=== PATIENT | female | born 1960 | race Hispanic/Latino ===

== ENCOUNTER 2017-09-14 12:23 | Emergency (ER) | payer OTHER ==
[2017-09-14] MEDS ORDERED: METHYLPREDNISOLONE 125 MG INJ ONE (13:44)
[2017-09-14] MEDS ORDERED: IPRATROPIUM BROM 0.5MG/2.5ML ONE ×2 (13:44→17:13)
[2017-09-14] MEDS ORDERED: ALBUTEROL 2.5 MG/3 ML NEB SOL ONE ×2 (13:44→17:13)
[2017-09-14] MEDS ORDERED: MAGNESIUM SULFATE 1 gm IVPB 1 GM/100 ML BAG IV ONE (13:45)
[2017-09-14 14:19] LABS: Protime INR 0.93
[2017-09-14 14:40] LABS: Absolute Lymphocytes (CBC) 2.4 K/uL (0.7-4.9); Absolute Monocytes 0.6 K/uL (0.1-1.3); Absolute Neutrophil 3.7 K/uL (1.8-8.0); Basophils % 0.7 % (0-1.3); Eosinophils % 1.1 % (0-4.4); Hematocrit 55.7 % (36.0-45.0); Lymphocytes % 35.5 % (15.3-44.8); MCH 27.7 pg (27.0-35.0); MCV 87.3 fL (80-100); MPV 9.9 fL (7.6-11.3); Monocytes % 8.7 % (3.3-12.3); RBC Red Blood Cell Count 6.38 M/uL (3.86-4.86)
[2017-09-14 14:52] LABS: CKMB Creatine Kinase MB 1.9 ng/ml (0.3-4.0)
[2017-09-14 14:57] LABS: Bicarbonate 33 mEq/L (21-31); Creatine Phosphokinase 54 IU/L (22-269); Glucose Level 221 mg/dL (65-120); Magnesium 1.7 mg/dL (1.8-2.5); Potassium 4.1 mEq/L (3.6-5.0); Sodium Level 139 mEq/L (135-145)
[2017-09-14 15:03] LABS: ALT/SGPT 50 IU/L (10-60); AST/SGOT 34 IU/L (10-42); Albumin 3.2 g/dL (3.2-5.5); Alkaline Phosphatase 102 IU/L (42-121); BUN Blood Urea Nitrogen 25 mg/dL (6-20); Bilirubin Direct 0.1 mg/dL (0-0.2); Bilirubin Total 0.4 mg/dL (0.3-1.2); Protein, Total 7.1 g/dL (6.0-8.3)
[2017-09-14 15:12] LABS: Urine Specific Gravity >1.030 (1.005-1.030)
[2017-09-14 15:15] LABS: Urine Blood 1+ (NEG); Urine Glucose TRACE (NEG); Urine Protein 3+ (NEG); Urine pH 5.5 (5.0-7.0)
--- NOTE | 2017-09-14 16:24 | EKG ---
Test Date: 2017-09-14 Test Time: 13:54:35 Ribbon Weaver: DULCE MEASUREMENT RESULTS: Intervals: Rate: 94 MT: 170 QRSD: 80 QT: 370 QTc: 462 Leonard: P: 51 MT: 170 QRS: 59 T: 40 INTERPRETIVE STATEMENTS: Normal sinus rhythm Right atrial enlargement Borderline ECG Compared to ECG 10/08/2009 06:05:22 Atrial abnormality now present Electronically Signed On 09-14-17 16:23:24 CDT by Parish Lord
--- NOTE | 2017-09-14 18:04 | ER ---
Nurse's Notes [facility] Name: Karen Jenkins Age: 57 yrs Sex: Female : 1960 Arrival Date: 09/14/2017 Time: 12:26 Bed 14 Private MD: None, None Diagnosis: Shortness of breath;Cough Presentation: 09/14 12:30 Presenting complaint: Patient states: last Sunday, i started having this SOB since hj then, cough and wheezing getting worse, now i have headache; reports fever; O2 sat at home on room air 89%;. Transition of care: patient was not received from another setting of care. Onset of symptoms was September 14, 2017. Initial Sepsis Screen: Does the patient meet any 2 criteria? No. Patient's initial sepsis screen is negative. Does the patient have a suspected source of infection? No. Patient's initial sepsis screen is negative. Care prior to arrival: None. 12:30 Method Of Arrival: Ambulatory 12:30 Acuity: LIO 3 hj Triage Assessment: 12:35 General: Appears in no apparent distress. uncomfortable, Behavior is calm, cooperative, hj appropriate for age. Pain: Denies pain. Respiratory: Reports cough that is Onset: The symptoms/episode began/occurred last Sunday;, the patient has moderate shortness of breath. Historical: - Allergies: 12:35 No Known Allergies; hj - Home Meds: 12:35 Lotrel 5-10 mg Oral cap 1 cap once daily [Active]; Glucophage 500 mg Oral tab 1 tab 2 hj times per day [Active]; - PMHx: 12:35 Diabetes - NIDDM; Hypertension; hj - PSHx: 12:35 lap band; tummy tuck; hj Screenin:00 Abuse screen: Denies threats or abuse. Denies injuries from another. Nutritional sg screening: No deficits noted. Tuberculosis screening: No symptoms or risk factors identified. Never had TB. Fall Risk None identified. Assessment: 12:35 Cardiovascular: Rhythm is regular. Respiratory: Airway is patent Respiratory effort is hj even, unlabored, Respiratory pattern is regular, symmetrical, Vital Signs: 12:36 BP 161 / 89; Pulse 96; Resp 20; Temp 98.8(O); Pulse Ox 91% on R/A; Weight 87.54 kg; hj Height 5 ft. 2 in. (157.48 cm); 15:18 BP 144 / 85; Pulse 85; Resp 17 S; Pulse Ox 94% on 3 lpm NC; sg 16:59 BP 142 / 82; Pulse 96 MON; Resp 19; Pulse Ox 97% on R/A; Pain 0/10; sg 12:36 Body Mass Index 35.30 (87.54 kg, 157.48 cm) hj 16:59 pt 88 percent on room air while talking with pt mother in the exam room ED Course: 12:26 Patient arrived in ED. mr 12:26 None, None is Private Physician. mr 12:32 Triage completed. hj 12:35 Arm band placed on left wrist. hj 12:45 Patient has correct armband on for positive identification. Bed in low position. Call sg light in reach. 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 Pulse ox on. NIBP on. 12:58 Dallas Kenny PA is PHCP. cp 12:58 Edmund Cordero MD is Attending Physician. cp 14:05 EKG done, by endo tech. reviewed by Dallas MENDOSA. vh 14:13 Bong Maria, GERMAIN is Primary Nurse. sg 15:29 Urine --Ancillary (enter results) Sent. sg 18:02 Italia Davila MD is Hospitalizing Provider. cp 18:42 Kg Vasquez MD is Referral Physician. cp 18:45 No provider procedures requiring assistance completed. IV discontinued, intact, sg bleeding controlled, No redness/swelling at site. Pressure dressing applied. Administered Medications: 14:14 Drug: Magnesium Sulfate 1 grams Route: IVPB; Infused Over: 1 hrs; Site: right sg antecubital; 15:18 Follow up: Response: No adverse reaction; IV Status: Completed infusion sg 14:14 Drug: SOLU-Medrol 125 mg Route: IVP; Site: right antecubital; sg 15:26 Follow up: Response: No adverse reaction sg 14:34 Drug: Albuterol - atroVENT (3:1) (2.5 mg - 0.5 mg) 3 ml Route: Nebulizer; sg 15:26 Follow up: Response: No adverse reaction sg 17:18 Drug: Albuterol - atroVENT (3:1) (2.5 mg - 0.5 mg) 3 ml Route: Nebulizer; sg Outcome: 18:03 Decision to Hospitalize by Provider. cp 18:43 Discharge ordered by MD. cp 18:48 Discharged to home ambulatory, with friend. sg 18:48 Condition: good 18:48 Discharge instructions given to patient, Instructed on discharge instructions, follow up and referral plans. medication usage, safety practices, Demonstrated understanding of instructions, follow-up care, medications, Prescriptions given X 3. 18:51 Patient left the ED. em Signatures: Bong Maria RN RN Amelia Correia mr Alegre, Jhonathan, NECKTIE STITCHER NECKTIE STITCHER em Maribel Truong Lamine Rodriguez RN RN Dallas Kenny, NAVYA PA cp Corrections: (The following items were deleted from the chart) 12:37 12:36 Pulse 96bpm; Resp 20bpm; Pulse Ox 91% RA; Temp 98.8F Oral; 87.54 kg; Height 5 ft. hj 2 in.; BMI: 35.3; hj 17:10 16:59 BP 142 / 82; Pulse 96bpm; MonitorResp 90bpm; Pulse Ox 97% RA; Pain 0/10; sg sg
--- NOTE | 2017-09-14 18:04 | EDPHYS ---
Physician Documentation [facility] Name: Karen Jenkins Age: 57 yrs Sex: Female : 1960 Arrival Date: 09/14/2017 Time: 12:26 Bed 14 Private MD: None, None ED Physician Edmund Cordero HPI: 09/14 13:35 This 57 yrs old Female presents to ER via Ambulatory with complaints of cp Shortness Of Breath. 13:35 The patient has shortness of breath at rest. Onset: The symptoms/episode began/occurred cp last week. Duration: The symptoms are continuous, and are steadily getting worse. Associated signs and symptoms: Pertinent positives: productive cough, Pertinent negatives: diaphoresis, fever, hemoptysis. Patient reports she was seen at Urgent Care clinic 2 days ago for similar symptoms and is currently taking prescribed Augmentin. Historical: - Allergies: 12:35 No Known Allergies; hj - Home Meds: 12:35 Lotrel 5-10 mg Oral cap 1 cap once daily [Active]; Glucophage 500 mg Oral tab 1 tab 2 hj times per day [Active]; - PMHx: 12:35 Diabetes - NIDDM; Hypertension; hj - PSHx: 12:35 lap band; tummy tuck; hj ROS: 13:40 Constitutional: Negative for body aches, chills, fever, poor PO intake. cp 13:40 Eyes: Negative for injury, pain, redness, and discharge. cp 13:40 ENT: Positive for sore throat, Negative for drainage from ear(s), ear pain, difficulty swallowing, difficulty handling secretions. 13:40 Cardiovascular: Positive for chest pain, with cough, Negative for edema, palpitations. 13:40 Respiratory: Positive for cough, with clear sputum, shortness of breath, at rest. wheezing. 13:40 Abdomen/GI: Negative for abdominal pain, nausea, vomiting, and diarrhea, black/tarry stool, rectal bleeding. 13:40 Back: Negative for pain at rest, pain with movement, radiated pain. 13:40 Skin: Negative for cellulitis, rash. 13:40 Neuro: Negative for headache, syncope, near syncope, weakness. 13:40 All other systems are negative. Exam: 13:50 Constitutional: The patient appears in no acute distress, alert, awake, cp non-diaphoretic, non-toxic, well developed, well nourished. 13:50 Head/Face: Normocephalic, atraumatic. cp 13:50 Eyes: Periorbital structures: appear normal, Pupils: equal, round, and reactive to light and accomodation, Extraocular movements: intact throughout, Conjunctiva: normal, no exudate, no injection, Sclera: no appreciated abnormality, Lids and lashes: appear normal, bilaterally. 13:50 ENT: External ear(s): are unremarkable, Ear canal(s): are normal, clear, TM's: bulging, is not appreciated, bilaterally, dullness, bilaterally, erythema, is not appreciated, bilaterally, Nose: is normal, Mouth: Lips: moist, Oral mucosa: pink and intact, moist, Posterior pharynx: Airway: no evidence of obstruction, patent, Tonsils: are normal in appearance, Uvula: midline, non-edematous, no erythema, swelling, is not appreciated, erythema, that is mild, exudate, is not appreciated, Voice: is normal. 13:50 Neck: External neck: is normal, ROM/movement: is normal, is supple, without pain, no range of motions limitations, no meningismus, no nuchal rigidity, Lymph nodes: no appreciated lymphadenopathy. 13:50 Chest/axilla: Inspection: normal, Palpation: is normal, no crepitus, no tenderness. 13:50 Cardiovascular: Rate: normal, Rhythm: regular, Pulses: Pulses are 2+ in right radial artery and left radial artery. Edema: is not appreciated. 13:50 Respiratory: the patient does not display signs of respiratory distress, Respirations: cp labored breathing, that is mild, splinting, is not noted, tachypnea, is not appreciated, Breath sounds: decreased breath sounds, that are moderate, throughout, stridor, is not appreciated, + upper airway congestion. wheezing: that is mild, is heard diffusely. 13:50 Abdomen/GI: Inspection: abdomen appears normal, Bowel sounds: active, all quadrants, Palpation: abdomen is soft and non-tender, in all quadrants. 13:50 Back: pain, is absent, ROM is normal. 13:50 Skin: cellulitis, is not appreciated, no rash present. 13:50 Neuro: Orientation: to person, place \T\ time. Mentation: lucid, able to follow commands, Cerebellar function: is grossly normal, Motor: moves all fours, strength is normal, Sensation: no obvious gross deficits. 14:00 ECG was reviewed by the Attending Physician. cp Vital Signs: 12:36 BP 161 / 89; Pulse 96; Resp 20; Temp 98.8(O); Pulse Ox 91% on R/A; Weight 87.54 kg; hj Height 5 ft. 2 in. (157.48 cm); 15:18 BP 144 / 85; Pulse 85; Resp 17 S; Pulse Ox 94% on 3 lpm NC; sg 16:59 BP 142 / 82; Pulse 96 MON; Resp 19; Pulse Ox 97% on R/A; Pain 0/10; sg 12:36 Body Mass Index 35.30 (87.54 kg, 157.48 cm) hj 16:59 pt 88 percent on room air while talking with pt mother in the exam room sg MDM: 13:11 Patient medically screened. cp 16:00 Differential diagnosis: asthma, Bronchitis CHF exacerbation, Chronic Obstructive cp Pulmonary Disease pneumonia, pulmonary edema, Pulmonary Embolism. 17:25 Data reviewed: vital signs, nurses notes, lab test result(s), EKG, radiologic studies, cp plain films. 17:25 Test interpretation: by ED physician or midlevel provider: ECG, plain radiologic cp studies. 17:26 Physician consultation: Italia Davila MD was called at 17:27, was contacted at 17:27, regarding admission, to the medical/surgical unit. patient's condition. 18:35 ED course: VSS. Patient evaluated by DR Davila, hospitalist, and felt to be stable for cp discharge to home with medications. 09/14 13:35 Order name: Basic Metabolic Panel; Complete Time: 16:14 cp 09/14 16:14 Interpretation: Normal except: CO2 33; GLUC 221; BUN 25. cp 09/14 13:35 Order name: BNP; Complete Time: 16:14 09/14 13:35 Order name: CBC with Diff; Complete Time: 14:56 09/14 14:56 Interpretation: Normal except: RBC 6.38; HGB 17.6; HCT 55.7; MCV 87.3; MCHC 31.7; RDW cp 15.4. 09/14 13:35 Order name: Ckmb; Complete Time: 16:14 09/14 13:35 Order name: CPK; Complete Time: 16:14 cp 09/14 13:35 Order name: LFT's; Complete Time: 16:14 cp 09/14 13:35 Order name: Magnesium; Complete Time: 16:14 cp 09/14 16:14 Interpretation: Abnormal: MG 1.7. 09/14 13:35 Order name: PT-INR; Complete Time: 16:14 cp 09/14 13:35 Order name: Ptt, Activated; Complete Time: 16:14 cp 09/14 13:35 Order name: Troponin (emerg Dept Use Only); Complete Time: 14:56 cp 09/14 14:56 Interpretation: TROPED < 0.03; Reviewed. 09/14 13:35 Order name: Influenza Screen (a \T\ B); Complete Time: 14:56 cp 09/14 15:02 Order name: Urine Dipstick--Ancillary (enter results); Complete Time: 16:14 sg 09/14 16:14 Interpretation: Normal except: UKET 1+; UBLD 1+; UPROT 3+. 09/14 15:03 Order name: Urine --Ancillary (enter results) 09/14 15:03 Order name: Urine --Ancillary; Complete Time: 16:14 EDMS 09/14 13:35 Order name: Urine Test (obtain specimen); Complete Time: 14:32 cp 09/14 13:35 Order name: EKG; Complete Time: 13:35 cp 09/14 13:35 Order name: Cardiac monitoring; Complete Time: 14:32 cp 09/14 13:35 Order name: EKG - Nurse/Tech; Complete Time: 14:33 cp 09/14 13:35 Order name: IV Saline Lock; Complete Time: 14:33 cp 09/14 13:35 Order name: Labs collected and sent; Complete Time: 14:33 cp 09/14 13:35 Order name: O2 Per Protocol; Complete Time: 14:33 cp 09/14 13:35 Order name: O2 Sat Monitoring; Complete Time: 14:33 cp 09/14 13:35 Order name: Urine Dipstick-Ancillary (obtain specimen); Complete Time: 14:34 cp EC:00 Rate is 94 beats/min. Rhythm is regular. NE interval is normal. QRS interval is normal. cp QT interval is normal. No ST changes noted. Interpreted by me. Reviewed by me. Administered Medications: 14:14 Drug: Magnesium Sulfate 1 grams Route: IVPB; Infused Over: 1 hrs; Site: right sg antecubital; 15:18 Follow up: Response: No adverse reaction; IV Status: Completed infusion sg 14:14 Drug: SOLU-Medrol 125 mg Route: IVP; Site: right antecubital; sg 15:26 Follow up: Response: No adverse reaction sg 14:34 Drug: Albuterol - atroVENT (3:1) (2.5 mg - 0.5 mg) 3 ml Route: Nebulizer; sg 15:26 Follow up: Response: No adverse reaction sg 17:18 Drug: Albuterol - atroVENT (3:1) (2.5 mg - 0.5 mg) 3 ml Route: Nebulizer; sg Disposition: 09/14/17 18:43 Discharged to Home. Impression: Shortness of breath, Cough. - Condition is Fair. - Discharge Instructions: Shortness of Breath, Cough, Adult. - Prescriptions for Advair HFA 45- 21 mcg/actuation Inhalation HFA aerosol inhaler - inhale 2 puff by INHALATION route 2 times per day; 1 Inhaler. Albuterol Sulfate 2.5 mg /3 mL (0.083 %) Inhalation Solution for Nebulization - inhale 1 unit by NEBULIZATION route every 8 hours As needed; 1 box. Zithromax Z- Tj 250 mg Oral Tablet - take 1 tablet by ORAL route as directed for 5 days Day 1 - take two (2) tablets one time. Day 2, 3, 4 , 5 take one (1) tablet once daily.; 6 tablet. Prednisone 20 mg Oral Tablet - take 1 tablet by ORAL route once daily for 10 days; 10 tablet. - Work release form, Medication Reconciliation Form, Thank You Letter, Antibiotic Education, Prescription Opioid Use form. - Follow up: Kg Vasquez MD; When: 2 - 3 days; Reason: Recheck today's complaints. - Problem is new. - Symptoms have improved. Addendum: 09/22/2017 19:57 Co-signature as Attending Physician, Edmund Cordero MD I agree with the assessment and k plan of care. Signatures: Dispatcher [employer] EDMS Bong Maria RN Edmund Flores MD MD kdr Jhonathan Alegre, SCOUT SCOUT em Lamine Rodriguez, RN RN Dallas Hong, Zoe Browning cp Corrections: (The following items were deleted from the chart) 09/14 16:43 16:18 Chest Single View+RAD.RAD.BRZ ordered. EDMS EDMS 18:06 18:03 Hospitalization Ordered by Italia Davila MD for Observation. Preliminary eb diagnosis is Hypoxemia. Bed requested for Telemetry/MedSurg (observation). Status is Observation. Condition is Stable. Problem is new. Symptoms have improved. UTI on Admission? No. cp 18:37 18:06 09/14/2017 18:03 Hospitalization Ordered by Itlaia Davila MD for Observation. eb Preliminary diagnosis is Hypoxemia. Bed requested for Telemetry/MedSurg (observation). Status is Observation. Condition is Stable. Problem is new. Symptoms have improved. UTI on Admission? No. eb 18:41 18:37 09/14/2017 18:03 Hospitalization Ordered by Italia Davila MD for Observation. cp Preliminary diagnosis is Hypoxemia. Bed requested for Telemetry/MedSurg (observation). Status is Observation. Condition is Stable. Problem is new. Symptoms have improved. UTI on Admission? No. eb 18:51 18:43 09/14/2017 18:43 Discharged to Home. Impression: Shortness of breath; Cough. em Condition is Fair. Forms are Medication Reconciliation Form, Thank You Letter, Antibiotic Education, Prescription Opioid Use. Follow up: Kg Vasquez; When: 2 - 3 days; Reason: Recheck today's complaints. Problem is new. Symptoms have improved. cp
== END 2017-09-14 18:51 | disposition home or self-care (01) ==
LOC: ER 12:23 → ERHOLD 18:07 → UNDOADMOB 18:07 → ER 18:51
DX: R05 Cough (principal); I10 Essential (primary) hypertension; E11.9 Type 2 diabetes mellitus without complications
CPT/HCPCS: 36415; 80048; 80076; 81003; 81025; 82550; 82553; 83735; 83880; 84484; 85025; 85610; 85730; 87804; 93005; 94640; 96365; 96375; 99285; J2930; J3475

== ENCOUNTER 2019-02-15 17:42 | Emergency (ER) | payer OTHER ==
[2019-02-15] MEDS ORDERED: IBUPROFEN 400 MG TAB ONE ×2 (18:36→18:39)
--- NOTE | 2019-02-15 19:15 | RAD REPORT ---
EXAM DESCRIPTION: RAD - Ankle Right 3 View - 02/15/2019 7:06 pm CLINICAL HISTORY: Right ankle pain status post injury FINDINGS: Mildly displaced oblique fracture lateral malleolus. No dislocation
--- NOTE | 2019-02-15 19:17 | RAD REPORT ---
EXAM DESCRIPTION: RAD - Foot Right 3 View - 02/15/2019 7:06 pm CLINICAL HISTORY: Right foot pain status post injury FINDINGS: No fracture or dislocation is seen involving the right foot Large calcaneal spurs
--- NOTE | 2019-02-15 20:03 | ER ---
Nurse's Notes [facility] Name: Karen Jenkins Age: 58 yrs Sex: Female : 1960 Arrival Date: 02/15/2019 Time: 17:46 Bed 28 Private MD: Diagnosis: Fracture of lower leg, including ankle Presentation: 02/15 17:54 Presenting complaint: Patient states: "I slipped and fell last night". Pt c/o pain to aa5 right ankle. Transition of care: patient was not received from another setting of care. Onset of symptoms was January 2019. Risk Assessment: Do you want to hurt yourself or someone else? Patient reports no desire to harm self or others. Initial Sepsis Screen: Does the patient meet any 2 criteria? No. Patient's initial sepsis screen is negative. Does the patient have a suspected source of infection? No. Patient's initial sepsis screen is negative. Care prior to arrival: None. 17:54 Acuity: LIO 4 aa5 17:54 Method Of Arrival: Ambulatory aa5 Historical: - Allergies: 17:56 No Known Allergies; aa5 - PMHx: 17:55 Diabetes - NIDDM; Hypertension; aa5 - PSHx: 17:55 lap band; tummy tuck; aa5 - Immunization history:: Adult Immunizations up to date. - Social history:: Smoking status: Patient/guardian denies using tobacco. - Ebola Screening: : No symptoms or risks identified at this time. Screenin:20 Abuse screen: Denies threats or abuse. Nutritional screening: No deficits noted. tr5 Tuberculosis screening: No symptoms or risk factors identified. Fall Risk None identified. Assessment: 18:00 General: Appears in no apparent distress. uncomfortable, Behavior is calm, cooperative. tr5 Pain: Complains of pain in right foot Pain does not radiate. Pain currently is 7 out of 10 on a pain scale. Quality of pain is described as aching, Pain began 1 day ago. Is intermittent, Alleviated by rest, Aggravated by increased activity. Neuro: Level of Consciousness is awake, alert, Oriented to person, place, time. Cardiovascular: Heart tones present Capillary refill < 3 seconds Pulses are all present. Respiratory: Airway is patent Respiratory effort is even, unlabored, Respiratory pattern is regular, symmetrical. GI: No signs and/or symptoms were reported involving the gastrointestinal system. : No signs and/or symptoms were reported regarding the genitourinary system. EENT: Derm: No signs and/or symptoms reported regarding the dermatologic system. Musculoskeletal: Capillary refill < 3 seconds, Range of motion: intact in all extremities. 19:00 Reassessment: Patient appears in no apparent distress at this time. Patient and/or tr5 family updated on plan of care and expected duration. Pain level reassessed. Patient is alert, oriented x 3, equal unlabored respirations, skin warm/dry/pink. Vital Signs: 18:00 BP 154 / 102; Pulse 90; Resp 16; Temp 98.2(O); Pulse Ox 99% on R/A; tr5 ED Course: 17:46 Patient arrived in ED. mr 17:54 Arm band placed on. aa5 17:55 Triage completed. aa5 17:56 Jarrod Orellana PA is PHCP. [facility] 17:56 Dallas Meyer MD is Attending Physician. [facility] 18:24 Vasu Ingram, GERMAIN is Primary Nurse. tr5 19:07 Ankle Right 3 View XRAY In Process Unspecified. EDMS 19:07 Foot Right 3 View XRAY In Process Unspecified. EDMS 19:20 Placed in gown. Bed in low position. Call light in reach. tr5 19:47 Zack wrap to right ankle Orthoglass splint: Posterior short lleg splint applied on right jp3 leg. stirrup splint applied on right leg. 20:01 Isaiah Merino MD is Referral Physician. [facility] Administered Medications: 18:43 Drug: Ibuprofen 400 mg Route: PO; tr5 19:20 Follow up: Response: Marked relief of symptoms tr5 Outcome: 20:02 Discharge ordered by . brigitte 20:37 Patient left the ED. mw2 Signatures: Dispatcher [employer] EDMS Jarrod Orellana PA PA jmm Rivera, Mary mr ErazoNoemí RN RN aa5 Norm Kwon mw2 Skyler Cordoba jp3 Vasu Ingram RN RN tr5
--- NOTE | 2019-02-15 20:03 | EDPHYS ---
Physician Documentation [facility] Name: Karen Jenkins Age: 58 yrs Sex: Female : 1960 Arrival Date: 02/15/2019 Time: 17:46 Bed 28 Private MD: ED Physician Dallas Meyer HPI: 02/15 17:59 This 58 yrs old Female presents to ER via Ambulatory with complaints of Fall jmm Injury, Ankle Injury. 17:59 Details of fall: The patient fell from an upright position. Onset: The symptoms/episode jmm began/occurred acutely, 6 day(s) ago. The patient has experienced a previous episode. Patient states she twisted her right ankle and has continued to have pain and swelling since. Denies other injury. . Historical: - Allergies: 17:56 No Known Allergies; aa5 - PMHx: 17:55 Diabetes - NIDDM; Hypertension; aa5 - PSHx: 17:55 lap band; tummy tuck; aa5 - Immunization history:: Adult Immunizations up to date. - Social history:: Smoking status: Patient/guardian denies using tobacco. - Ebola Screening: : No symptoms or risks identified at this time. ROS: 17:59 Constitutional: Negative for fever, chills, and weight loss, Cardiovascular: Negative jmm for chest pain, palpitations, and edema, Respiratory: Negative for shortness of breath, cough, wheezing, and pleuritic chest pain. 17:59 MS/extremity: Positive for injury or acute deformity, pain, swelling. 17:59 All other systems are negative. Exam: 17:59 Constitutional: This is a well developed, well nourished patient who is awake, alert, jmm and in no acute distress. Head/Face: atraumatic. Eyes: EOMI, no conjunctival erythema appreciated ENT: Moist Mucus Membranes Neck: Trachea midline, Supple Chest/axilla: Normal chest wall appearance and motion. Cardiovascular: Regular rate and rhythm. No edema appreciated Respiratory: Normal respirations, no respiratory distress appreciated Abdomen/GI: Non distended, soft 17:59 Musculoskeletal/extremity: right lateral malleolus pain, full dorsalis pulse, compartments are soft, NVI. 17:59 Skin: ecchymosis noted to the right ankle. 17:59 Neuro: Orientation: is normal, Mentation: is normal, Memory: is normal. 17:59 Psych: Behavior/mood is pleasant, cooperative. Vital Signs: 18:00 BP 154 / 102; Pulse 90; Resp 16; Temp 98.2(O); Pulse Ox 99% on R/A; tr5 Procedures: 19:47 Splinting:. brigitte 20:00 Splinting: Splint applied to right ankle and right foot using Orthoglass splint, brigitte applied by tech. Examined by me, post splint application: neurovascular intact, 2+ distal pulses palpable, brisk capillary refill noted, Patient tolerated well. MDM: 17:59 Patient medically screened. [facility] 20:00 Data reviewed: vital signs, nurses notes. Counseling: I had a detailed discussion with brigitte the patient and/or guardian regarding: the historical points, exam findings, and any diagnostic results supporting the discharge/admit diagnosis, radiology results, the need for outpatient follow up, to return to the emergency department if symptoms worsen or persist or if there are any questions or concerns that arise at home. ED course: Patient advised to not bear weight. Advised to follow up with ortho for reevaluation. patient otherwise given compartment syndrome return precautions. patient understood and agrees with the plan of care. . 02/15 18:08 Order name: Ankle Right 3 View XRAY; Complete Time: 19:19 kylee 02/15 18:08 Order name: Foot Right 3 View XRAY; Complete Time: 19:19 kylee Administered Medications: 18:43 Drug: Ibuprofen 400 mg Route: PO; tr5 19:20 Follow up: Response: Marked relief of symptoms tr5 Disposition: 02/15/19 20:02 Discharged to Home. Impression: Fracture of lower leg, including ankle. - Condition is Stable. - Discharge Instructions: Ankle Fracture. - Prescriptions for Ultracet 37.5- 325 mg Oral Tablet - take 1 tablet by ORAL route every 6 hours - for up to 5 days; do not exceed 8 tablets per day.; 20 tablet. - Medication Reconciliation Form, Thank You Letter, Antibiotic Education, Prescription Opioid Use form. - Follow up: Isaiah Merino MD; When: 2 - 3 days; Reason: Recheck today's complaints, Continuance of care, Re-evaluation by your physician. Addendum: 02/17/2019 09:06 Co-signature as Attending Physician, Dallsa Meyer MD I agree with the assessment and c lopes plan of care. Signatures: Dispatcher [employer] EDDallas Tejada MD MD cha Mickail, Joel, PA PA jmm Calderon, Audri, RN RN aa5 Norm Kwon mw2 Vasu Ingram RN RN tr5 Corrections: (The following items were deleted from the chart) 02/15 20:37 20:02 02/15/2019 20:02 Discharged to Home. Impression: Fracture of lower leg, including mw2 ankle. Condition is Stable. Forms are Medication Reconciliation Form, Thank You Letter, Antibiotic Education, Prescription Opioid Use. Follow up: Dr. Isaiah Merino; When: 2 - 3 days; Reason: Recheck today's complaints, Continuance of care, Re-evaluation by your physician. brigitte
[2019-02-15 20:44] VITALS: BP 154/102; TEMP 98.2; O2SAT 99
== END 2019-02-15 20:37 | disposition home or self-care (01) ==
LOC: ER 17:42
PROC: 2W3QX1Z Immobilization of Right Lower Leg using Splint (ICD-10-PCS; principal; 2019-02-15)
DX: S82.61XA Displaced fracture of lateral malleolus of right fibula, initial encounter for closed fracture (principal); W01.0XXA Fall on same level from slipping, tripping and stumbling without subsequent striking against object, initial encounter; Y92.9 Unspecified place or not applicable
CPT/HCPCS: 99283

== ENCOUNTER 2020-09-22 17:37 | Emergency (ER) | payer OTHER, SELFPAY ==
[2020-09-22 18:34] LABS: Arterial Blood Carboxyhemoglob 1.8 % (0-1.5); Blood Gas Oxyhemoglobin 94.6 % (94-97); Blood O2 Saturation 97.3 % (92-98.5)
--- NOTE | 2020-09-22 18:48 | RAD REPORT ---
EXAM DESCRIPTION: CT - Head Brain Wo Cont - 09/22/2020 6:20 pm CLINICAL HISTORY: WEAKNESS COMPARISON: No comparisons TECHNIQUE: Axial 5 mm thick images of the head were obtained without IV contrast. All CT scans are performed using dose optimization technique as appropriate and may include automated exposure control or mA/KV adjustment according to patient size. FINDINGS: There is a 3.5 x 1.5 centimeter acute intraparenchymal hemorrhage in the right cerebral he misphere centered along the lateral margin of the right lentiform nucleus extending superiorly into t he right frontal lobe. Mass-effect is mild. Midline shift from right to left is less than 2 mm. No fo santos mass lesions seen. No intraventricular or subarachnoid hemorrhage. Patient has minimal atrophy an d chronic ischemic findings. No acute cortical based infarction. Mastoid air cells and visualized portions of the paranasal sinuses are clear. No acute bony findings. Findings telephoned to the referring clinician 6:38 p.m. IMPRESSION: A 3.5 x 1.5 centimeter acute intraparenchymal hemorrhage is present in the right cerebra l hemisphere lateral to the basal ganglia. Mass-effect is mild with less than 2 mm of right to left midline shift.
--- NOTE | 2020-09-22 18:50 | RAD REPORT ---
EXAM DESCRIPTION: RAD - Chest Single View - 09/22/2020 6:11 pm CLINICAL HISTORY: SOB COMPARISON: August 2017 TECHNIQUE: AP portable chest image was obtained 09/22/2020 6:11 pm . FINDINGS: Lung value bones are very low. Patient is lordotic positioning. Large body habitus also co ntributes to exam limitations. No peripheral mass or consolidation identified. Retrocardiac left base assessment is limited. Cardiac silhouette is prominent. Central vasculature is prominent. Masslike fullness of the right hilum is p ositioning artifact. No clear change from 2018 suspected. Trachea is midline. No measurable pleural e ffusion and no pneumothorax. No acute bony abnormality seen. No acute aortic findings suspected. IMPRESSION: Significantly limited portable examination showing evidence for mild failure or volume o verload.
[2020-09-22 19:04] LABS: Absolute Lymphocytes (CBC) 0.9 K/uL (0.7-4.9); Basophils % 1.3 % (0-1.3); Hematocrit 58.6 % (36.0-45.0); Lymphocytes % 9.9 % (15.3-44.8); MPV 9.3 fL (7.6-11.3); RBC Red Blood Cell Count 6.43 M/uL (3.86-4.86)
[2020-09-22] MEDS ORDERED: dexAMETHasone 10 MG/ML VIAL ONE (19:13)
[2020-09-22] MEDS ORDERED: LEVALBUTEROL 1.25 MG/3 ML NEB ONE (19:13)
[2020-09-22] MEDS ORDERED: NA CHLORIDE 0.9% 500 ML ONE (19:13)
[2020-09-22] MEDS ORDERED: NA CHLORIDE 0.9% 100 ML ONE (19:13)
[2020-09-22] MEDS ORDERED: FOSPHENYTOIN PE 500 MG/10 ML VIAL ONE (19:13)
[2020-09-22] MEDS ORDERED: IPRATROPIUM BROM 0.5MG/2.5ML ONE (19:13)
[2020-09-22 19:14] LABS: Protime INR 0.97
[2020-09-22] MEDS ORDERED: FUROSEMIDE 40 MG/4 ML VIAL ONE (19:22)
[2020-09-22] MEDS ORDERED: METHYLPREDNISOLONE 125 MG INJ ONE (19:22)
[2020-09-22 19:27] LABS: SARS-COV-2 RT PCR NEGATIVE (NEGATIVE)
--- NOTE | 2020-09-22 19:29 | ER ---
Nurse's Notes [facility] Name: Karen Jenkins Age: 60 yrs Sex: Female : 1960 Arrival Date: 09/22/2020 Time: 17:44 Bed 5 Private MD: Diagnosis: Right side cerebral hemisphere hemorrhage;Acute respiratory failure with hypoxia Presentation: 09/22 17:52 Chief complaint: EMS states: SOB, PEDAL AND FACIAL EDEMA. Coronavirus screen: At this bp time, the client does not indicate any symptoms associated with coronavirus-19. Ebola Screen: No symptoms or risks identified at this time. Initial Sepsis Screen: Does the patient meet any 2 criteria? HR > 90 bpm. No. Patient's initial sepsis screen is negative. Does the patient have a suspected source of infection? No. Patient's initial sepsis screen is negative. Risk Assessment: Do you want to hurt yourself or someone else? Patient reports no desire to harm self or others. Onset of symptoms was September 22, 2020. 17:52 Method Of Arrival: EMS: [facility] bp 17:52 Acuity: LIO 2 bp Triage Assessment: 17:54 General: Appears distressed, uncomfortable, obese, Behavior is cooperative, appropriate bp for age, anxious. Pain: Denies pain. EENT: Eyes NAMITA-ORBITAL EDEMA. Neuro: Level of Consciousness is awake, alert, obeys commands, Oriented to Appropriate for age. Cardiovascular: Rhythm is sinus tachycardia. Respiratory: Airway is patent Respiratory effort is labored, Respiratory pattern is symmetrical, hyperventilation. GI: No signs and/or symptoms were reported involving the gastrointestinal system. : No signs and/or symptoms were reported regarding the genitourinary system. Derm: No deficits noted. Musculoskeletal: No deficits noted. Historical: - Allergies: 17:54 No Known Allergies; bp - Home Meds: 17:54 Glucophage 500 mg Oral tab 1 tab 2 times per day [Active]; Lotrel 5-10 mg Oral cap 1 bp cap once daily [Active]; - PMHx: 17:54 Diabetes - NIDDM; Hypertension; bp - Immunization history:: Adult Immunizations up to date. - Social history:: Smoking status: Patient denies any tobacco usage or history of. Screenin:57 Abuse screen: Denies threats or abuse. Denies injuries from another. Nutritional bp screening: No deficits noted. Tuberculosis screening: No symptoms or risk factors identified. Fall Risk None identified. Assessment: 17:57 General: SEE TRIAGE NOTE. bp 19:08 Reassessment: No changes from previously documented assessment. RT AT B/S FOR BIPAP. bp PER MD, CEREBRAL HEMORRHAGE NOTED ON CT. Vital Signs: 17:52 BP 122 / 90; Pulse 101; Resp 15; Temp 97.8; Pulse Ox 86% on R/A; bp 19:00 BP 147 / 93; Pulse 96; Resp 14; Pulse Ox 98% on 15% Non-rebreather mask; bp 20:34 BP 129 / 76; Pulse 78; Resp 15; Pulse Ox 96% on BiPAP; rv NIH Stroke Scale Scores: 18:10 NIHSS Score: 0 cp ED Course: 17:44 Patient arrived in ED. am2 17:46 Dallas Kenny PA is PHCP. cp 17:46 Dallas Meyer MD is Attending Physician. cp 17:52 El Godinez, GERMAIN is Primary Nurse. bp 17:54 Triage completed. bp 17:54 Arm band placed on. bp 17:57 Patient has correct armband on for positive identification. Bed in low position. Call bp light in reach. Side rails up X2. Adult w/ patient. secured entrance monitor on. Pulse ox on. NIBP on. 18:15 XRAY Chest (1 view) In Process Unspecified. EDMS 18:19 CT Head Brain wo Cont In Process Unspecified. EDMS 18:30 Inserted saline lock: 20 gauge in right forearm, using aseptic technique. Blood bp collected. 20:33 No provider procedures requiring assistance completed. IV is patent, with fluids rv infusing freely, Patient transferred, IV remains in place. 20:40 Chu cath inserted, using sterile technique, 16 Fr., by me, by ED staff, balloon rr5 inflated, to gravity drainage. Administered Medications: 18:50 Drug: Fosphenytoin 1 grams Route: IVPB; Site: right forearm; bp 18:50 Drug: Decadron - Dexamethasone 10 mg Route: IVP; Site: right forearm; bp 20:42 Follow up: Response: No adverse reaction rr5 18:55 Not Given (Duplicate Order): NS 0.9% 500 ml IV at bolus once all 19:00 Drug: Xopenex (levalbuterol) 3.75 mg Route: Inhalation; bp 19:00 Drug: AtroVENT (ipratropium) Aerosol 0.5 mg Route: Inhalation; bp 19:00 Drug: SOLU-Medrol (methylPrednisoLONE) 125 mg Route: IVP; Site: right forearm; bp 20:00 Follow up: Response: No adverse reaction rr5 19:00 Drug: Lasix (furosemide) 40 mg Route: IVP; Site: right forearm; bp 20:00 Follow up: Response: No adverse reaction rr5 Outcome: 19:28 ER care complete, transfer ordered by . cp 20:33 Transferred by ground EMS to [facility], Transfer form completed. X-rays sent rv w/ patient. 20:33 Condition: stable 20:33 Instructed on the need for transfer. 20:54 Patient left the ED. NIH Stroke Scale - NIH Stroke Score Date: 09/22/2020 Time: 18:10 Total Score = 0 1a. Level of Consciousness (LOC) - 0(Alert) 1b. Level of Consciousness (LOC) (Year \T\ Age) - 0(Both) 1c. LOC Commands (Open \T\ Closes Eyes/Carbon Paste Mixer Operator) - 0(Both) 2. Best Gaze (Lateral Gaze Paresis) - 0(Normal) 3. Visual Field Loss - 0(No visual loss) 4. Facial Palsy - 0(Normal) 5a. Left Arm: Motor (10-second hold) - 0(No drift) 5b. Right Arm: Motor (10-second hold) - 0(No drift) 6a. Left Leg: Motor (5-second hold - always test supine) - 0(No drift) 6b. Right Leg: Motor (5-second hold - always test supine) - 0(No drift) 7. Limb Ataxia (finger/nose \T\ heel/shepard - test with eyes open) - 0(Absent) 8. Sensory Loss (pinprick arms/legs/face) - 0(Normal) 9. Best Language: Aphasia (description/naming/reading) - 0(No aphasia) 10. Dysarthria (speech clarity - read or repeat words) - 0(Normal) 11. Extinction and Inattention (visual/tactile/auditory/spatial/personal) - 0(No abnormality) Initials: cp Signatures: Dispatcher [employer] EDMS Catherine Medellin RN RN iw Page, Corey, PA PA cp Goldsmith, Cora am2 El Godinez, RN RN bp Myron Myers, RN RN rv Jose Miguel Burleson RN RN rr5 Dallas Meyer MD, cha
--- NOTE | 2020-09-22 19:29 | EDPHYS ---
Physician Documentation [facility] Name: Karen Jenkins Age: 60 yrs Sex: Female : 1960 Arrival Date: 09/22/2020 Time: 17:44 Bed 5 Private MD: ED Physician Dallas Meyer HPI: 09/22 18:00 This 60 yrs old Female presents to ER via EMS with complaints of General cp Weakness. 18:00 The patient's problem is reported as weakness, that is generalized. Onset: The cp symptoms/episode began/occurred yesterday, and became worse today. Duration: The episode is continuous. Context: symptoms became apparent upon waking, occurred at home. Associated signs and symptoms: Pertinent positives: shortness of breath. Patient's baseline: Neuro: alert and fully oriented, Motor: no deficits, Ambulation: walks without assistance, Speech: normal. 18:00 Patient reports she "slid" out of bed this morning around 0900 and was unable to get up cp from floor until a neighbor helped her at around 1200. Patient c/o increasing general weakness. EMS reports oxygen sats were in 60's upon their arrival to patient's home. Historical: - Allergies: 17:54 No Known Allergies; bp - Home Meds: 17:54 Glucophage 500 mg Oral tab 1 tab 2 times per day [Active]; Lotrel 5-10 mg Oral cap 1 bp cap once daily [Active]; - PMHx: 17:54 Diabetes - NIDDM; Hypertension; bp - Immunization history:: Adult Immunizations up to date. - Social history:: Smoking status: Patient denies any tobacco usage or history of. ROS: 18:05 Constitutional: Negative for body aches, chills, fever, poor PO intake. cp 18:05 Eyes: Negative for injury, pain, redness, and discharge. cp 18:05 ENT: Negative for ear pain, sore throat, difficulty swallowing, difficulty handling secretions. 18:05 Cardiovascular: Negative for chest pain, edema, palpitations. 18:05 Respiratory: Positive for shortness of breath, at rest. Negative for cough, wheezing. 18:05 Abdomen/GI: Negative for abdominal pain, nausea, vomiting, and diarrhea, black/tarry stool, rectal bleeding. 18:05 Back: Negative for pain at rest, pain with movement. 18:05 : Negative for urinary symptoms. 18:05 Skin: Negative for burn, cellulitis. 18:05 Neuro: Positive for general weakness, Negative for altered mental status, headache, loss of consciousness, seizure activity, syncope. 18:05 All other systems are negative. Exam: 18:10 Constitutional: The patient appears in no acute distress, alert, awake, cp non-diaphoretic, non-toxic, well developed, well nourished. 18:10 Head/Face: Normocephalic, atraumatic. cp 18:10 Eyes: Periorbital structures: appear normal, Pupils: equal, round, and reactive to light and accomodation, Extraocular movements: intact throughout, Conjunctiva: normal, no exudate, no injection, Sclera: no appreciated abnormality, Lids and lashes: appear normal, bilaterally. 18:10 ENT: External ear(s): are unremarkable, Nose: is normal, Mouth: Lips: dry, Oral mucosa: dry, Posterior pharynx: Airway: no evidence of obstruction, patent. 18:10 Neck: C-spine: vertebral tenderness, is not appreciated, crepitus, is not appreciated, ROM/movement: is normal, is supple, without pain, no range of motions limitations. 18:10 Chest/axilla: Inspection: normal, Palpation: is normal, no crepitus, no tenderness. 18:10 Cardiovascular: Rate: tachycardic, Rhythm: regular, Edema: is not appreciated, JVD: is not appreciated. 18:10 Respiratory: moderate respiratory distress is noted, Respirations: labored breathing, that is moderate, Breath sounds: decreased breath sounds, that are moderate, throughout, stridor, is not appreciated, wheezing: is not appreciated. 18:10 Abdomen/GI: Inspection: abdomen appears normal, Bowel sounds: active, all quadrants, Palpation: abdomen is soft and non-tender, in all quadrants. 18:10 Back: pain, is absent, ROM is normal. 18:10 Skin: cellulitis, is not appreciated. 18:10 Neuro: Orientation: to person, place \\T\\ time. Mentation: able to follow commands, slow to respond, Cerebellar function: Romberg testing is negative, heel to shepard testing is normal, Motor: moves all fours, general weakness with no focal deficits, Sensation: no obvious gross deficits. 18:35 ECG was reviewed by the Attending Physician. 18:47 Radiologist reports: right side 3.5 cm by 1.5 cm intraparenchymal bleed Vital Signs: 17:52 BP 122 / 90; Pulse 101; Resp 15; Temp 97.8; Pulse Ox 86% on R/A; bp 19:00 BP 147 / 93; Pulse 96; Resp 14; Pulse Ox 98% on 15% Non-rebreather mask; bp 20:34 BP 129 / 76; Pulse 78; Resp 15; Pulse Ox 96% on BiPAP; rv NIH Stroke Scale Scores: 18:10 NIHSS Score: 0 cp MDM: 17:54 Patient medically screened. 18:00 Differential diagnosis: CVA, metabolic disorder, drug effects, cardiac arrythmia, cp sepsis. 19:25 Data reviewed: vital signs, nurses notes, lab test result(s), radiologic studies, CT cp scan, plain films, I have discussed the patient's presentation/case with the attending Emergency Department Physician; and as a result, I will transfer patient. 19:30 Physician consultation: was contacted at 19:25, regarding regarding transfer, to [facility]. patient's condition, spoke with DR Hernández, neurology, who agreed to accept patient. 09/22 17:56 Order name: Basic Metabolic Panel 09/22 17:56 Order name: CBC with Diff 09/22 17:56 Order name: LFT's 09/22 17:56 Order name: Magnesium 09/22 17:56 Order name: NT PRO-BNP 09/22 17:56 Order name: PT-INR 09/22 17:56 Order name: Troponin (emerg Dept Use Only) 05 17:56 Order name: Procalcitonin 09/22 17:56 Order name: Blood Culture Adult (2) 09/22 17:56 Order name: Lactate; Complete Time: 19:18 cp / 17:56 Order name: CK 09/22 17:56 Order name: Basic Metabolic Panel EDCA 09/22 17:56 Order name: CBC with Automated Diff; Complete Time: 19:18 EDMS 09/22 19:21 Interpretation: Normal except: RBC 6.43; HGB 18.5; HCT 58.6; MCV 91.1; MCHC 31.6; RDW cp 16.6; SHAKEEL% 83.9; LYM% 9.9. 09/22 17:56 Order name: XRAY Chest (1 view); Complete Time: 19:18 cp 09/22 17:56 Order name: CT Head Brain wo Cont; Complete Time: 19:18 cp 09/22 17:56 Order name: Liver (Hepatic) Function EDMS 09/22 17:56 Order name: Magnesium EDMS 09/22 17:56 Order name: NT PRO-BNP EDMS 09/22 17:56 Order name: Protime (+INR); Complete Time: 19:18 EDMS 09/22 17:59 Order name: ABG; Complete Time: 18:47 cp 09/22 18:48 Order name: BIPAP cp 09/22 18:51 Order name: BIPAP all 09/22 19:27 Order name: COVID-19/FLU A+B EDMS 09/22 17:56 Order name: EKG; Complete Time: 17:57 cp 09/22 17:56 Order name: Cardiac monitoring; Complete Time: 17:59 cp 09/22 17:56 Order name: EKG - Nurse/Tech; Complete Time: 18:47 cp 09/22 17:56 Order name: IV Saline Lock; Complete Time: 18:47 cp 09/22 17:56 Order name: Labs collected and sent; Complete Time: 18:47 cp 09/22 17:56 Order name: O2 Per Protocol; Complete Time: 17:59 cp 09/22 17:56 Order name: O2 Sat Monitoring; Complete Time: 17:59 cp 09/22 18:44 Order name: Chu; Complete Time: 20:42 cp EC:35 Rate is 98 beats/min. Rhythm is regular. IA interval is normal. QRS interval is normal. cp QT interval is normal. T waves are Inverted in leads aVF, aVR. Interpreted by me. Reviewed by me. Administered Medications: 18:50 Drug: Fosphenytoin 1 grams Route: IVPB; Site: right forearm; bp 18:50 Drug: Decadron - Dexamethasone 10 mg Route: IVP; Site: right forearm; bp 20:42 Follow up: Response: No adverse reaction rr5 18:55 Not Given (Duplicate Order): NS 0.9% 500 ml IV at bolus once all 19:00 Drug: Xopenex (levalbuterol) 3.75 mg Route: Inhalation; bp 19:00 Drug: AtroVENT (ipratropium) Aerosol 0.5 mg Route: Inhalation; bp 19:00 Drug: SOLU-Medrol (methylPrednisoLONE) 125 mg Route: IVP; Site: right forearm; bp 20:00 Follow up: Response: No adverse reaction rr5 19:00 Drug: Lasix (furosemide) 40 mg Route: IVP; Site: right forearm; bp 20:00 Follow up: Response: No adverse reaction rr5 Disposition: 09/23 09:34 Co-signature as Attending Physician, Dallas Meyer MD I agree with the assessment and all plan of care. Disposition: 09/22/20 19:28 Transfer ordered to [facility]. Diagnosis are Right side cerebral hemisphere hemorrhage, Acute respiratory failure with hypoxia. - Reason for transfer: Higher level of care. - Accepting physician is DR Vazquez. - Condition is Stable. - Problem is new. - Symptoms have improved. NIH Stroke Scale - NIH Stroke Score Date: 09/22/2020 Time: 18:10 Total Score = 0 1a. Level of Consciousness (LOC) - 0(Alert) 1b. Level of Consciousness (LOC) (Year \\T\\ Age) - 0(Both) 1c. LOC Commands (Open \\T\\ Closes Eyes/Fleet Sales Associate) - 0(Both) 2. Best Gaze (Lateral Gaze Paresis) - 0(Normal) 3. Visual Field Loss - 0(No visual loss) 4. Facial Palsy - 0(Normal) 5a. Left Arm: Motor (10-second hold) - 0(No drift) 5b. Right Arm: Motor (10-second hold) - 0(No drift) 6a. Left Leg: Motor (5-second hold - always test supine) - 0(No drift) 6b. Right Leg: Motor (5-second hold - always test supine) - 0(No drift) 7. Limb Ataxia (finger/nose \\T\\ heel/shepard - test with eyes open) - 0(Absent) 8. Sensory Loss (pinprick arms/legs/face) - 0(Normal) 9. Best Language: Aphasia (description/naming/reading) - 0(No aphasia) 10. Dysarthria (speech clarity - read or repeat words) - 0(Normal) 11. Extinction and Inattention (visual/tactile/auditory/spatial/personal) - 0(No abnormality) Initials: cp Signatures: Dispatcher [employer] EDMS Dallas Meyer MD MD cha Williams, Irene, RN RN iw Dallas Kenny PA PA El Mendez, RN RN bp Jose Miguel Burleson RN rr5 Corrections: (The following items were deleted from the chart) 09/22 18:37 18:01 CORONAVIRUS+MR.LAB.BRZ ordered. EDMS EDMS 18:39 18:01 Influenza Screen (A \\T\\ B)+BA.LAB.BRZ ordered. EDCA EDMS 19:28 19:28 09/22/2020 19:28 Transfer ordered to [facility]. Diagnosis cp is Right side cerebral hemisphere hemorrhage; Unspecified combined systolic (congestive) and diastolic (congestive) heart failure; Acute respiratory failure with hypoxia. Reason for transfer: Higher level of care. Accepting physician is DR Hernández. Condition is Stable. Problem is new. Symptoms have improved. cp 20:11 19:28 09/22/2020 19:28 Transfer ordered to [facility]. Diagnosis cp is Right side cerebral hemisphere hemorrhage; Acute respiratory failure with hypoxia. Reason for transfer: Higher level of care. Accepting physician is DR Hernández. Condition is Stable. Problem is new. Symptoms have improved. cp 20:54 20:11 09/22/2020 19:28 Transfer ordered to [facility]. Diagnosis iw is Right side cerebral hemisphere hemorrhage; Acute respiratory failure with hypoxia. Reason for transfer: Higher level of care. Accepting physician is DR Vazquez. Condition is Stable. Problem is new. Symptoms have improved. cp
[2020-09-22 19:32] LABS: Albumin 2.3 g/dL (3.4-5.0); Bilirubin Direct 0.2 mg/dL (0-0.2); Bilirubin Total 0.6 mg/dL (0.2-1.0); Magnesium 2.1 mg/dL (1.8-2.4); Potassium 4.4 mmol/L (3.5-5.1); Protein, Total 6.6 g/dL (6.4-8.2); Troponin (Emerg Dept Use Only) 0.05 ng/mL (0.0-0.045)
[2020-09-22] MEDS ORDERED: NA CHLORIDE 0.9% 1,000 ML ONE (20:18)
[2020-09-22 21:02] VITALS: TEMP 97.8
[2020-09-22 21:05] VITALS: BP 129/76; O2SAT 96
--- NOTE | 2020-09-23 07:18 | EKG ---
Test Date: 2020-09-22 Test Time: 18:29:35 Christian Counselor: BP MEASUREMENT RESULTS: Intervals: Rate: 98 MT: 148 QRSD: 72 QT: 322 QTc: 411 Peak: P: 42 MT: 148 QRS: 137 T: 16 INTERPRETIVE STATEMENTS: Normal sinus rhythm Right axis deviation Cannot rule out Anterior infarct, age undetermined Abnormal ECG Compared to ECG 09/14/2017 13:54:35 Right-axis deviation now present Myocardial infarct finding now present Atrial abnormality no longer present Electronically Signed On 09-23-20 07:17:32 CDT by Parish Lord
== END 2020-09-22 20:54 | disposition short-term general hospital (02) ==
LOC: ER 17:37
DX: S06.340A Traumatic hemorrhage of right cerebrum without loss of consciousness, initial encounter (principal); J96.01 Acute respiratory failure with hypoxia; W06.XXXA Fall from bed, initial encounter; I10 Essential (primary) hypertension; E11.9 Type 2 diabetes mellitus without complications; R29.700 NIHSS score 0; Z20.822 Contact with and (suspected) exposure to COVID-19
CPT/HCPCS: 0240U; 36415; 51702; 70450; 71045; 80048; 80076; 82550; 82805; 83605; 83735; 83880; 84145; 84484; 85025; 85610; 87040; 87205; 93005; 94660; 96374; 96375; 99285; J1100; J1940; J2930; J7030; J7040; Q2009

== ENCOUNTER 2020-10-07 17:09 | Inpatient (IN) | payer OTHER, SELFPAY ==
--- OUTSIDE RECORDS SUMMARY | 2020-10-07 19:14 | XMS REPORT | Continuity of Care Document ---
:1960 Author Organization [facility] t Address [address] [place] [address] Dr. Sales [address] [place] [id number] Care Team Providers Name Role Phone Unavailable Unavailable Unavailable Problems This patient has no known problems. Allergies, Adverse Reactions, Alerts This patient has no known allergies or adverse reactions. Medications This patient has no known medications. Procedures This patient has no known procedures. Results This patient has no known results.
[2020-10-07] MEDS ORDERED: D50W 25 GM/50 ML SYRINGE IV PRN (20:34)
[2020-10-07] MEDS ORDERED: ONDANSETRON 4 MG/2 ML VIAL IV PRN (20:34)
[2020-10-07] MEDS ORDERED: DIPHENHYDRAMINE 25 MG TAB/CAP PO PRN (20:34)
[2020-10-07] MEDS ORDERED: POLYETHYL GLY 3350 17 GM/DOSE PO PRN (20:34)
[2020-10-07] MEDS ORDERED: ACETAMINOPHEN 325 MG TABLET PO PRN (20:34)
[2020-10-07] MEDS ORDERED: GLUCAGON 1 MG/VIAL IM PRN (20:34)
[2020-10-07] MEDS ORDERED: LOPERAMIDE HCL 2 MG CAPSULE PO PRN (20:34)
[2020-10-07] MEDS ORDERED: ONDANSETRON 4 MG (ODT) TAB PO PRN (20:41)
[2020-10-07] MEDS ORDERED: FUROSEMIDE 100 MG in NA CHLORIDE 0.9% 90 ML IV SCH (21:00)
[2020-10-07] MEDS: INSULIN -REGULAR HUMAN 50 UNIT/0.5 ML ML SQ SCH (21:00)
[2020-10-07 21:42] LABS: Basophils % 1.3 % (0-1.3); Hematocrit 50.4 % (36.0-45.0); Lymphocytes % 17.1 % (15.3-44.8); MPV 9.8 fL (7.6-11.3); RBC Red Blood Cell Count 5.52 M/uL (3.86-4.86)
[2020-10-07 21:52] LABS: Protime INR 0.91
[2020-10-07 22:26] LABS: Albumin 2.3 g/dL (3.4-5.0); Bilirubin Direct 0.1 mg/dL (0-0.2); Bilirubin Total 0.4 mg/dL (0.2-1.0); Magnesium 1.9 mg/dL (1.8-2.4); Phosphorus 1.9 mg/dL (2.5-4.9); Protein, Total 6.5 g/dL (6.4-8.2)
[2020-10-07 22:37] LABS: Thyroid Stimulating Hormone 8.1 uIU/mL (0.360-3.740)
[2020-10-07] MEDS ORDERED: FUROSEMIDE 40 MG/4 ML VIAL ONE (23:33)
[2020-10-07] MEDS ORDERED: FUROSEMIDE 20 MG/ 2ML VIAL ONE (23:33)
[2020-10-07] MEDS ORDERED: NA CHLORIDE 0.9% 100 ML ONE (23:34)
[2020-10-08 00:56] LABS: Urine Appearance CLEAR (Clear); Urine Bilirubin NEGATIVE (Negataive); Urine Blood TRACE (Negative); Urine Color YELLOW (Yellow); Urine Glucose TRACE (Negative); Urine Protein 2+ (Negative); Urine Urobilinogen 0.2 mg/dL (0.2-1.0); Urine pH 6.5 (5.0-7.0)
[2020-10-08 00:57] LABS: Urine Microscopic Reflex ORDER UMIC
[2020-10-08 01:11] LABS: Urine Bacteria LOADED /HPF (<20); Urine Mucus 1+ /HPF (NONE SEEN)
[2020-10-08 06:10] LABS: Absolute Lymphocytes (CBC) 0.9 K/uL (0.7-4.9); Basophils % 1.1 % (0-1.3); Hematocrit 51.3 % (36.0-45.0); Lymphocytes % 16.6 % (15.3-44.8); MPV 9.2 fL (7.6-11.3); RBC Red Blood Cell Count 5.57 M/uL (3.86-4.86)
--- NOTE | 2020-10-08 06:17 | P.CNS ---
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 Head CT showed a 3.6 x 1.5 cm acute intraparenchymal hemorrhage in the right cerebral hemisphere lateral to the basal ganglia. There was min midline L shift. She was dc after 9 days. Now admitted for peripheral edema/anasarca evaluation. Has hypoalbuminemia w/ serum albumin 2.3. Has serum and urine protein gap. Urinalysis w/ proteinuria/hematuria/pyuria. Urine cult ure sent. Renal fxn wnl. Hypertensive. Has borderline hypernatremia. Has erythrocytosis since 2018. Has chronic serum bicarb elevation since 2013. ABG done showed chronic respi acidosis and metabolic alkalosis but no hypoxia. BLE doppler US showed no DVT Allergies No Known Allergies Allergy (Verified 10/08/20 03:18) Home Medications: Albuterol Sulfate [Proair Respiclick] 2 puff IH Q6H PRN 10/08/20 Amlodipine [Norvasc] 10 mg PO DAILY 10/08/20 Atorvastatin Calcium [Lipitor] 80 mg PO BEDTIME 10/08/20 Lisinopril [Zestril] 30 mg PO DAILY 10/08/20 Metformin HCl [Glucophage] 500 mg PO BIDWM 10/08/20 - Past Medical/Surgical History Diabetic: Yes -: CVA -: gastric bypass - Social History Alcohol use: No CD- Drugs: No Caffeine use: No Place of Residence: Home Physical Examination Temp Pulse Resp BP Pulse Ox 98.2 F 92 H 18 148/86 H 96 10/08/20 00:00 10/08/20 00:00 10/08/20 00:00 10/08/20 00:00 10/08/20 00:00 Laboratory Data (last 24 hrs) 10/07/20 21:00: Sodium 146 H, Potassium 4.0, BUN 21 H, Creatinine 0.75, Glucose 170 H, Phosphorus 1.9 L, Magnesium 1.9, Total Bilirubin 0.4, AST 19, ALT 24, Alkaline Phosphatase 157 H 10/07/20 21:00: PT 10.4, INR 0.91, APTT 36.8 10/07/20 21:00: WBC 6.00, Hgb 16.3 H, Hct 50.4 H, Plt Count 176 Conclusions/Impression: # Htn SBP goal 140 or less Inc amlodipine to 10 mg po daily Cont losartan 100 mg po daily # R intracerebral hemorrhage Mngt per Neurology Repeat head CT tomorrow BP goal < 140 Maintain euglycemia # BLE edema On lasix Cont statin BLE doppler US showed no DVT TTE on 09/23/20 unimpressive except for mod pulmo Htn w/ RVSP 50 mmHg CTA chest on 10/07/20 showed no central pulmo embolism; main pulmo artery somewhat dilated LFT shows no congestive pattern +Hypoalbuminemia Urinalysis w/ proteinuria/hematuria/pyuria F/u UCx Check lipid panel Check 25OHD +serum & urine protein gap F/u random UPCR, if subnephrotic or nephrotic range will order full proteinuria workup Renal fxn wnl # Hypernatremia Improved Monitor # Chronic respi acidosis; Hx of asthma Has chronic serum bicarb elevation since 2013 ABG pH wnl Cont inhalers # Erythrocytosis ? etiology Has erythrocytosis since 2018 Renal doppler US ordered to assess for HARITHA or renal mass # DM2 Mngt per primary team
[2020-10-08 06:23] LABS: Albumin 2.3 g/dL (3.4-5.0); Magnesium 1.9 mg/dL (1.8-2.4); Phosphorus 2.8 mg/dL (2.5-4.9); Potassium 3.7 mmol/L (3.5-5.1)
[2020-10-08] MEDS: LOSARTAN POTASSIUM 50 MG TABLET PO SCH (08:45)
[2020-10-08] MEDS: INSULIN -REGULAR HUMAN 50 UNIT/0.5 ML ML SQ SCH ×5 (08:45→21:43)
[2020-10-08] MEDS: METFORMIN HCL 500 MG TAB PO SCH ×2 (08:45→17:50)
[2020-10-08] MEDS: JUVEN PACKET PO SCH ×2 (09:00→21:51)
--- NOTE | 2020-10-08 09:07 | RAD REPORT ---
EXAM DESCRIPTION: CT Head Without Intravenous Contrast CLINICAL HISTORY: The patient is 60 years old and is Female; Brain hemorrhage TECHNIQUE: Axial computed tomography images of the head/brain without intravenous contrast. Sagitt al and coronal reformatted images were created and reviewed. This CT exam was performed using one o r more of the following dose reduction techniques: automated exposure control, adjustment of the mA and/or kV according to patient size, and/or use of iterative reconstruction technique. COMPARISON: No relevant prior studies available. FINDINGS: Brain: There is an approximately 2.0 x 1.0 cm ovoid hyperdensity with surrounding 4.9 x 2.6 cm region of hypodensity involving the right basal ganglia, internal capsule, and griffith radiata which likely represents evolving intraparenchymal hemorrhage with surrounding edema. No significant white matter disease. Midline shift: There is 2-3 mm of midline shift to the left. Ventricles: There is mild effacement of the right lateral ventricle. Bones/joints: Unremarkable. No acute fracture. Soft tissues: Unremarkable. Sinuses: Unremarkable as visualized. Mastoid air cells: Unremarkable as visualized. No mastoid effusion. IMPRESSION: 1. Evolving 2 cm intraparenchymal hemorrhage with surrounding edema involving the righ t basal ganglia, internal capsule, and girffith radiata. The hemorrhage is noted on the report for the CT head dated 09/22/2020, but images are unavailable for review/comparison. 2. There is 2-3 mm of midline shift to the left. 3. There is mild effacement of the right lateral ventricle. Electronically signed by: Eladio Nichols MD 10/08/2020 12:14 AM CDT Due to temporary technical issues with the PACS/Fluency reporting system, reports are being signed by the in house radiologist without review as a courtesy to ensure prompt reporting. The interpreting r adiologist is fully responsible for the content of the report.
--- NOTE | 2020-10-08 09:11 | RAD REPORT ---
EXAM DESCRIPTION: CT CHEST ANGIOGRAPHY WITH IV CONTRAST CLINICAL HISTORY: Anasarca TECHNIQUE: Contiguous axial images obtained through the chest during angiographic phase following th e uneventful administration of IV contrast. Sagittal and coronal reformatted images were provided. [place] P reformatted images were provided. This exam was performed according to our departmental dose-optimization program, which includes autom ated exposure control, adjustment of the mA and/or kV according to patient size and/or use of iterati ve reconstruction technique. COMPARISON: 05/25/2013 FINDINGS: Diagnostic quality: There is good opacification of the pulmonary arterial tree. Motion art ifact degrades image quality and limits evaluation of segmental and subsegmental vessels. Lungs: Lingular and left lower lobe subsegmental atelectasis/pleural parenchymal scar. Airways are pa tent. Pleura: No effusion. No pneumothorax. Heart and pericardium: The heart is mildly enlarged. No pericardial effusion. Mediastinum and dmitry: No pathologically enlarged lymph nodes. Lower neck and chest wall: 1.4 cm coarse calcification within the right lobe of the thyroid. Chest wa ll edema most pronounced on the left. Vessels: Enlargement of the main pulmonary artery compatible with pulmonary arterial hypertension. No pulmonary arterial filling defects. Minimal atherosclerotic disease. No thoracic aortic aneurysm. Upper abdomen: The liver is enlarged. Prior gastric banding. Bones: Multilevel spondylosis. No acute fracture. IMPRESSION: 1. Motion artifact degrades image quality and limits evaluation of segmental and subse gmental vessels. No central pulmonary embolic disease. 2. Chest wall edema most pronounced on the left. 3. 1.4 cm calcified nodule within the right lobe of the thyroid. No follow-up imaging is recommende d. Reference: J Am Jere Radiol. 2015 Jun;12(2): 143-50 4. Other findings as above. Electronically signed by: Farrukh Eller MD 10/07/2020 11:56 PM CDT Due to temporary technical issues with the PACS/Fluency reporting system, reports are being signed by the in house radiologist without review as a courtesy to ensure prompt reporting. The interpreting r adiologist is fully responsible for the content of the report.
[2020-10-08] MEDS: FUROSEMIDE 100 MG in NA CHLORIDE 0.9% 90 ML IV SCH ×2 (10:21→21:47)
--- NOTE | 2020-10-08 11:59 | RAD REPORT ---
EXAM DESCRIPTION: US - Extrem Venous W Compress Iain - 10/08/2020 11:30 am CLINICAL HISTORY: Anasarca Bilateral leg edema and swelling. COMPARISON: No comparisons TECHNIQUE: Real-time sonographic interrogation of the left and right lower extremity deep venous sys tems was performed. FINDINGS: Normal compressibility, flow augmentation, phasic flow and spontaneous flow is identified in both the left and right lower extremity deep venous systems. IMPRESSION: No sonographic evidence of left or right lower extremity deep venous thrombosis.
--- NOTE | 2020-10-08 13:31 | P.PN ---
Subjective Date of Service: 10/08/20 Chief Complaint: DIFFUSE EDEMA Subjective: Improving Amber came to office yesterday with severely swollen eyes. Her friend had called me about two weeks ago saying that she can't move out of bed, she was found on the floor and could not get up. I asked her to call ambulance. Today I find that she was taken to [facility], found to have Intracranial hemorrhage. She stayed in hospital for 9 days was sent home on norvasc and lisinopirl. She is a mild diabetic also. Today I readmitted her as I suspected renal issues causing diffuse anasarca. She does not seem to have acute neuro symptoms. Review of Systems General: Weakness, Malaise Eyes: Other (diffuse edema) ENT: Other Physical Examination - Vital Signs Temperature: 98.7 F Blood Pressure: 172/95 Pulse: 89 Respirations: 18 Pulse Ox (%): 95 - Physical Exam General: Oriented x3, Mild distress, Obese HEENT: Atraumatic, PERRLA, EOMI Neck: Supple, JVD not distended Respiratory: Clear to auscultation bilaterally, Normal air movement Cardiovascular: Regular rate/rhythm, Normal S1 S2, Edema Gastrointestinal: Normal bowel sounds, No tenderness Musculoskeletal: No tenderness Integumentary: No rashes Neurological: Normal speech, Normal tone, Normal affect Lymphatics: No axilla or inguinal lymphadenopathy - Studies Laboratory Data (last 24 hrs) 10/08/20 05:54: Sodium 145, Potassium 3.7, BUN 17, Creatinine 0.74, Glucose 155 H, Phosphorus 2.8, Magnesium 1.9 10/08/20 05:54: WBC 5.60, Hgb 16.1 H, Hct 51.3 H, Plt Count 182 10/07/20 21:00: Sodium 146 H, Potassium 4.0, BUN 21 H, Creatinine 0.75, Glucose 170 H, Phosphorus 1.9 L, Magnesium 1.9, Total Bilirubin 0.4, AST 19, ALT 24, Alkaline Phosphatase 157 H 10/07/20 21:00: PT 10.4, INR 0.91, APTT 36.8 10/07/20 21:00: WBC 6.00, Hgb 16.3 H, Hct 50.4 H, Plt Count 176 Medications List Reviewed: Yes Assessment And Plan - Current Problems (Diagnosis) (1) Anasarca Current Visit: Yes Status: Acute Plan: THIS CAN BE FROM NEPHROTIC SYNDROME. I CONSULTED DR. ENGEL TEAM. HER PROTEIN CREAT RATIO IS ABOUT 10. (2) Brainstem hemorrhage Current Visit: Yes Status: Acute Plan: ON CT SCAN SHE HAS BRAIN BLEED THAT IS STABLIZED PER DR. FITZGERALD. THERE IS MILD SHIFT BUT SHE HAS NO SYMPTOMS. I STARTED KEPPRA. DR. FITZGERALD ADVISES CT IN AM AGAIN TO SEE STABILITY. SHE IS ALREADY ON IV LASIX. Qualifiers: Intracerebral hemorrhage etiology: nontraumatic (3) HTN (hypertension) Current Visit: Yes Status: Chronic Plan: STOPPED AMLODIPINE AND LISINOPRIL STARTED LOSARTAN. Qualifiers: Hypertension type: essential hypertension Qualified Code(s): I10 - Es sential (primary) hypertension (4) Diabetes Current Visit: Yes Status: Chronic Plan: CHECK A1C LDL Qualifiers: Diabetes mellitus type: type 2
[2020-10-08 14:33] LABS: Blood Gas Oxyhemoglobin 93.9 % (94-97); Blood O2 Saturation 96.1 % (92-98.5)
[2020-10-08 14:34] LABS: Arterial Blood Carboxyhemoglob 1.3 % (0-1.5)
[2020-10-08] MEDS ORDERED: AMLODIPINE 5 MG TAB PO SCH (15:00)
--- NOTE | 2020-10-08 18:41 | CON ---
Consultation called by Dr. Vasquez because of central nervous system hemorrhage. History Of Present Illness: Ms. 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 She has hypertension and scf-mupzqkx-ogsinaqni diabetes mellitus. On September 21, she wa s at home when she woke up and was unable to move her right hand to get the phone. She tried to hold onto the floor, but slid out of her bed and it was 9 in the morning, actually this on the when i t occurred. She was unable to get back up and took around 3 hours on the floor before she was able t o get help from a neighbor. At that point, sounded to be diffusely weak with more left-sided than ri ght-sided weakness along with the facial drooping. At [facility], her blood pressure was el evated atto 147/93. Her head CT scan done at 5:56 in the afternoon identified a 3.5 x 1.5 cm acute i ntraparenchymal hemorrhage in the right cerebral hemisphere lateral to the basal ganglia. There was mass-effect with about 2 mm of [id number] midline shift. She was sent out to [facility] where she had interval evaluations, had a CT angiogram of her chest and had repeat head CT scan s, which did not show any worsening hemorrhage. The patient did have deficits of left-sided incoordi nation, weakness, and some problems with left facial strength. There was weakness there and she was reportedly a good candidate for inpatient rehabilitation. However, she does not have insurance cover age for inpatient rehab benefits and after a week in the hospital, she was discharged home last weeke . She has not noted any improvement in her strength and she was seen by Dr. Vasquez, her primary car e physician. Yesterday, he sent her to have a CT scan of the head and actually she did go to the [facility] room. A CT scan of the head showed that there was an evolving 2 cm intraparenchymal hemorrhag e with surrounding edema involving the right basal ganglia, internal capsule, griffith radiata. There was 2 to 3 mm midline shift and there was mild effacement of the right lateral ventricle. This was c ompared to the prior study showing there was around 2 mm midline shift. Then, in the last 2 weeks, i t is about 2 to 3 mm now, which is not anything new or different than what would be expected for the evolution of a stroke as located. There was normal bleeding. No evidence of ischemic transformation . She had a chest CT angiogram that showed motion degradation, however, there was chest wall edema m ost prominent on the left. There is a 1.4 cm calcified nodule in the right lobe of the thyroid which may be followed. She did have extremity Dopplers which showed no evidence of DVTs bilaterally. Her blood work showed elevation of her hemoglobin to initially 18.5, after hydration 16.1; normal white blood cell count and neutrophil count normal. INR within normal limits. At this point, she is clini keara improved according to Dr. Vasquez compared to what he had seen her around the time of the initial stroke and his question was should she be transferred back to [place] given the findings on CT scan and my advice was the patient's expected evolution is what you could see after hemorrhagic strokes an d it is not likely to make a difference. There are not likely intervene at this point. The patient should have a repeat head CT scan in the morning to see if there is any change in the blood or midlin e shift and she should be on antiepileptic medications. Steroids are typically not helpful in hemorr hagic or ischemic strokes. but can still be considered. Past Medical History: As indicated. Allergies: NO KNOWN DRUG ALLERGIES. Medications: Glucophage 500 mg twice daily, Lotrel 5/10 mg capsules once daily. Social History: No alcohol, tobacco, or IV drug use. Review of Systems: As mentioned, she does have some diffuse weakness, more on the left compared to the right side with s peech being clear. There is a slight decrease of the left nasolabial fold, slight decrease to light touch in the left face and the left upper and lower extremities. Physical Examination: Vital Signs: Blood pressure 172/95, pulse 89, respiratory rate 18, temperature 98.7, oxygen saturati on 95%. General: Ms. Jenkins is resting in bed. Friends are at the bedside. HEENT: She is normocephalic, atraumatic. Sclerae anicteric. Oropharynx is pink and moist. Neck: Supple. Chest: Clear. Heart: Regular. Extremities: There are some venous stasis changes in the left more than right lower extremity below the calf level. Neurologic: Otherwise, in terms of cranial nerves, remarkable for slight decrease o f the left nasal fold with good excursions. Slight decrease to light touch in the V1, V2, V3 distrib ution on the left compared to the right side, otherwise intact. Motor examination in the upper and l ower extremities, very subtle left lower upper extremity weakness at around 4+/5 compared to 5 in the right. Lower extremity, symmetric 5/5. Sensation decreased to light touch in the left arm and leg compared to the right side with a stocking-glove loss to light touch temperature. Her coordination i s intact in upper and lower extremities. Gait, she will be ambulated with the physical therapist Laboratory Data: Rest of he labs. INR 0.91. On chemistries, more recently today normal sodium, pot assium, chloride, slightly elevated carbon dioxide of 40. Glucose ranged from 155 to 170. Hemoglobi n A1c elevated at 10.3. Liver function studies show elevated alkaline phosphatase 157. Thyroid-stim ulating hormone level elevated to 8.1 with free T4 of 1.02. Her vitamin D panel is pending. Urinaly sis shows she is loaded with bacteria, trace blood, 1+ esterase. Random urine protein 153. Creatini ne less than 13, protein +2. Her COVID testing is negative. Influenza A and B negative. Assessment: 1.Ms. Jenkins is a 60-year-old patient with a right basal ganglia area evolving hemorrhagic stroke wi th some left-sided deficits with loss of sensation and weakness. She does have significantly elevate d blood pressures. Goal should be to keep systolic blood pressure to 140 or lower in this phase of r ecovery from the hemorrhagic stroke. 2.Blood sugars have been elevated. They should also be brought towards a more normal ranges, less t horne 150 and her electrolytes can be corrected as appropriately. She does appear to have urinary trac t infection, may be addressed by Dr. Vasquez. 3.Recommended that she has antiepileptic medication, perhaps for at least 4 weeks to 6 weeks as the brain heals from the hemorrhagic stroke. 4.She may be evaluated by Physical Therapy to determine if she is a candidate for inpatient rehabili tation. She may require some form of assistance to get there. She does not have resources for inpat ient rehabilitation. 5.As indicated, aggressive blood pressure management with systolic blood pressure less than 140. 6.Keppra 250 mg twice daily. 7.Gentle diuresis, perhaps Diamox or Lasix may be order. There is some mild left lower extremity gr eater than right edema and stasis changes noted related to diabetes. 8.Consider steroids, although not necessarily very helpful in edema associated with hemorrhagic or i schemic strokes. 9.This was discussed with Dr. Vasquez and the patient will be followed if able to go up to the rehabil itation unit on the fifth floor. NICHOLE/KESHAWN Voice ID: [id number] Report ID: [id number]
[2020-10-08] MEDS ORDERED: POTASSIUM CL SA 10 MEQ TAB PO ONE ×2 (18:56→19:15)
[2020-10-08] MEDS ORDERED: AMLODIPINE 5 MG TAB PO STA (21:22)
[2020-10-08] MEDS: levETIRAcetam 500 MG TAB PO SCH (21:44)
[2020-10-08] MEDS: ATORVASTATIN 80 MG TAB PO SCH (21:45)
[2020-10-08 22:25] LABS: UR PROTEIN 108 mg/dL (<11.9)
[2020-10-08 22:26] LABS: UR CREAT < 13.0 mg/dL (20-320)
[2020-10-09 06:25] LABS: Absolute Lymphocytes (CBC) 1.1 K/uL (0.7-4.9); Hematocrit 51.2 % (36.0-45.0); Lymphocytes % 21.3 % (15.3-44.8); MPV 9.2 fL (7.6-11.3); RBC Red Blood Cell Count 5.68 M/uL (3.86-4.86)
[2020-10-09] MEDS: FUROSEMIDE 100 MG in NA CHLORIDE 0.9% 90 ML IV SCH (06:29)
[2020-10-09 06:41] LABS: Albumin 2.2 g/dL (3.4-5.0); BUN Blood Urea Nitrogen 18 mg/dL (7-18); Glucose Level 88 mg/dL (74-106); Magnesium 1.6 mg/dL (1.8-2.4); Phosphorus 3.1 mg/dL (2.5-4.9); Potassium 3.1 mmol/L (3.5-5.1); Sodium Level 145 mmol/L (136-145)
[2020-10-09 06:50] LABS: Bicarbonate > 45 mmol/L (21-32)
[2020-10-09] MEDS: INSULIN -REGULAR HUMAN 50 UNIT/0.5 ML ML SQ SCH ×4 (07:30→21:00)
[2020-10-09] MEDS ORDERED: POTASSIUM CL SA 10 MEQ TAB PO ONE (08:00)
[2020-10-09] MEDS ORDERED: MAGNESIUM SULFATE 1 gm IVPB 1 GM/100 ML BAG IV ONE (08:00)
[2020-10-09] MEDS ORDERED: FUROSEMIDE 100 MG in NA CHLORIDE 0.9% 90 ML IV SCH (08:00)
[2020-10-09] MEDS ORDERED: POTASSIUM 25 MEQ EFFERV TAB PO ONE (08:59)
[2020-10-09] MEDS: JUVEN PACKET PO SCH ×2 (09:00→21:00)
[2020-10-09 10:21] LABS: Platelet Estimate ADEQ; White Blood Cell Scan OK (OK)
[2020-10-09 10:22] LABS: Anisocytosis 1+; Blood Morphology Comment NOTED (NOT SEEN)
--- NOTE | 2020-10-09 10:22 | P.PN ---
Subjective Date of Service: 10/09/20 Chief Complaint: DIFFUSE EDEMA Subjective: Improving Amber came to office yesterday with severely swollen eyes. Her friend had called me about two weeks ago saying that she can't move out of bed, she was found on the floor and could not get up. I asked her to call ambulance. Today I find that she was taken to [facility], found to have Intracranial hemorrhage. She stayed in hospital for 9 days was sent home on norvasc and lisinopirl. She is a mild diabetic also. Today I readmitted her as I suspected renal issues causing diffuse anasarca. She does not seem to have acute neuro symptoms. she is clinically stable. She has no chest pain. She has no dyspnea. Review of Systems 10-point ROS is otherwise unremarkable Physical Examination - Vital Signs Temperature: 98.6 F Blood Pressure: 120/76 Pulse: 93 Respirations: 18 Pulse Ox (%): 92 - Physical Exam General: Oriented x3, Mild distress, Obese HEENT: Atraumatic, PERRLA, EOMI Neck: Supple, JVD not distended Respiratory: Clear to auscultation bilaterally, Normal air movement Cardiovascular: Regular rate/rhythm, Normal S1 S2 Gastrointestinal: Normal bowel sounds, No tenderness Musculoskeletal: No tenderness Integumentary: No rashes Neurological: Normal speech, Normal tone, Normal affect Lymphatics: No axilla or inguinal lymphadenopathy - Studies Laboratory Data (last 24 hrs) 10/09/20 05:50: Triglycerides 157 H, Cholesterol 210 H, HDL Cholesterol 73 H, Cholesterol/HDL Ratio 2.88 10/09/20 05:50: Sodium 145, Potassium 3.1 L, BUN 18, Creatinine 0.84, Glucose 88, Phosphorus 3.1, Magnesium 1.6 L 10/09/20 05:00: WBC 5.20, Hgb 16.7 H, Hct 51.2 H, Plt Count 174 10/08/20 18:52: Potassium Cancelled Medications List Reviewed: Yes Assessment And Plan - Current Problems (Diagnosis) (1) Anasarca Current Visit: Yes Status: Acute Plan: THIS CAN BE FROM NEPHROTIC SYNDROME. I CONSULTED DR. ENGEL TEAM. HER PROTEIN CREAT RATIO IS ABOUT 10. NEPHROLOGY TEAM ON THE CASE. (2) Brainstem hemorrhage Current Visit: Yes Status: Acute Plan: ON CT SCAN SHE HAS BRAIN BLEED THAT IS STABLIZED PER DR. FITZGERALD. THERE IS MILD SHIFT BUT SHE HAS NO SYMPTOMS. I STARTED KEPPRA. DR. FITZGERALD ADVISES CT IN AM AGAIN TO SEE STABILITY. SHE IS ALREADY ON IV LASIX. REPEAT CT TODAY TO SEE THE PROGRESSION. Qualifiers: Intracerebral hemorrhage etiology: nontraumatic (3) HTN (hypertension) Current Visit: Yes Status: Chronic Plan: STOPPED AMLODIPINE AND LISINOPRIL STARTED LOSARTAN. Qualifiers: Hypertension type: essential hypertension Qualified Code(s): I10 - Essential (primary) hypertension (4) Diabetes Current Visit: Yes Status: Chronic Plan: CHECK A1C LDL Qualifiers: Diabetes mellitus type: type 2 (5) Hypokalemia Current Visit: Yes Status: Acute Plan: STOP LASIX DRIP REPLACE K DR. REYEZ MEDICAL REIMBURSEMENT MANAGER TODAY. WORK UP OF NEPHROTIC SYNDROME IN PROCESS. (6) Hypercarbia Current Visit: Yes Status: Acute
[2020-10-09] MEDS: LOSARTAN POTASSIUM 50 MG TABLET PO SCH (10:34)
[2020-10-09] MEDS: METFORMIN HCL 500 MG TAB PO SCH ×2 (10:35→16:45)
[2020-10-09] MEDS: AMLODIPINE 5 MG TAB PO SCH (10:35)
[2020-10-09] MEDS: levETIRAcetam 500 MG TAB PO SCH ×2 (10:36→21:45)
[2020-10-09] MEDS: SPIRONOLACTONE 25 MG TABLET PO SCH (10:42)
--- NOTE | 2020-10-09 11:24 | RAD REPORT ---
EXAM DESCRIPTION: US - Abdomen Pelvis Scan US - 10/09/2020 10:56 am CLINICAL HISTORY: High blood pressure Chronic erythrocytosis COMPARISON: No comparisons FINDINGS: The bilateral kidneys are normal in size, the right measuring 12.6 x 6.0 x 6.1 cm and the left measuring 11.8 x 6.1 x 4.9 cm. Aortic velocity: 48 cm/second Right proximal renal artery: 46 cm/second Right mid renal artery: 49 cm/second Right distal renal artery: 16 cm/second Right renal arcuate artery resistive index: 0.8 Right renal artery / aorta ratio: 1.0 Left proximal renal artery: 30 cm/second Left mid renal artery: 30 cm/second Left distal renal artery: 40 cm/second Left renal arcuate artery resistive index: 0.8 Left renal artery/aorta ratio: 0.7 Normal waveforms demonstrated within the bilateral renal arteries. IMPRESSION: No evidence of hemodynamically significant stenosis within the bilateral renal arteries.
[2020-10-09 21:28] LABS: BUN Blood Urea Nitrogen 27 mg/dL (7-18); Glucose Level 91 mg/dL (74-106); Potassium 3.6 mmol/L (3.5-5.1); Sodium Level 143 mmol/L (136-145)
[2020-10-09 21:29] LABS: Bicarbonate > 45 mmol/L (21-32)
[2020-10-09] MEDS: ATORVASTATIN 80 MG TAB PO SCH (21:44)
[2020-10-09] MEDS: acetaZOLAMIDE 250 MG TAB PO SCH (21:45)
[2020-10-09 22:51] VITALS: BMI 34.7
[2020-10-09 23:17] LABS: Arterial Blood Carboxyhemoglob 1.2 % (0-1.5); Blood O2 Saturation 93.4 % (92-98.5)
[2020-10-10] MEDS ORDERED: FUROSEMIDE 20 MG/ 2ML VIAL IV SCH (01:00)
[2020-10-10] MEDS ORDERED: FUROSEMIDE 40 MG/4 ML VIAL IV SCH (01:00)
--- NOTE | 2020-10-10 01:18 | PN ---
Date of Progress Note: 10/09/2020 Chief Complaint: Extremity edema, fluid overload, hypertension, electrolytes abnormalities, and acid base disorder. 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 She developed sudden onset of weakness of the right hand and was admitted to [facility] for intracerebral hemorrhage. She was seen by Neurology during this admission and diuretic was recommended including Lasix and Diamox. CT scan showed 3.6 x 1.5 cm acute intraparenchymal hemorrhage in the right cerebral hemisphere lateral to basal ganglia. The patient had minimal midline shift. She was discharged after 9 days. Now, she is admitted for edema, anasarca, and evaluation for nephrotic range proteinuria. The patient was found to have hypoalbuminemia, albumin was 2.3. She was started on Lasix drip. Lab work today showed hypokalemia and metabolic alkalosis and lasix drip is on hold. The patient received magnesium and potassium replacement. Subsequently, she is resumed on IV Lasix for volume control, edema control, and Diamox was started to control metabolic alkalosis secondary to loop diuretics. Review of Systems: The patient is alert and awake. She denies PND or orthopnea. Denies headache or vision changes. Denies chest pain. Physical Examination: Lungs: Diminished breath sounds at bases. Heart: S1, S2. Abdomen: Soft, benign. Extremities: Edema present. Laboratory Data: Sodium 145, potassium 3.1, chloride 97, CO2 of 45, BUN 18, creatinine 0.86, glucose 88, magnesium 1.6, phosphorus 3.1, calcium 8.7. Glucose 286 on recent Accu-Chek. Cholesterol total 210, triglycerides 157, HDL 73, LDL 106. 25-hydroxy vitamin D level 9.4. TSH 8.1. Urinalysis showed specific gravity 1.020, pH 6.5, ketones negative, blood trace, RBC 5 to 10, WBC 5 to 10. Protein-creatinine ratio 8.3. Impression And Plan: Severe proteinuria. The patient may be a candidate for renal biopsy to rule out glomerulonephritis. The patient has fluid overload. Plan is to adjust diuretics. Electrolytes panel show hypokalemia and metabolic alkalosis. Diamox was started. Potassium replacement was ordered. Monitor electrolytes. Adjust replacement accordingly. The patient has been seen by neurologist for intracranial hemorrhage. Further recommendation from Neurology. EB/MODL Voice ID: [id number] Report ID: [id number] KATLIN
[2020-10-10 04:26] LABS: Absolute Lymphocytes (CBC) 1.2 K/uL (0.7-4.9); Basophils % 1.4 % (0-1.3); Lymphocytes % 20.8 % (15.3-44.8); MPV 10.5 fL (7.6-11.3); RBC Red Blood Cell Count 5.53 M/uL (3.86-4.86)
[2020-10-10 04:46] LABS: Albumin 2.1 g/dL (3.4-5.0); BUN Blood Urea Nitrogen 26 mg/dL (7-18); Glucose Level 142 mg/dL (74-106); Magnesium 1.6 mg/dL (1.8-2.4); Phosphorus 2.6 mg/dL (2.5-4.9); Potassium 3.5 mmol/L (3.5-5.1); Sodium Level 142 mmol/L (136-145)
[2020-10-10 04:47] LABS: Bicarbonate > 45 mmol/L (21-32)
[2020-10-10] MEDS: INSULIN -REGULAR HUMAN 50 UNIT/0.5 ML ML SQ SCH ×4 (07:30→21:20)
[2020-10-10] MEDS ORDERED: MAGNESIUM SULFATE 1 gm IVPB 1 GM/100 ML BAG IV ONE (08:00)
[2020-10-10] MEDS ORDERED: POTASSIUM CL SA 10 MEQ TAB PO ONE ×2 (08:00)
[2020-10-10] MEDS: JUVEN PACKET PO SCH ×2 (09:00→21:00)
[2020-10-10] MEDS: SPIRONOLACTONE 25 MG TABLET PO SCH (10:13)
[2020-10-10] MEDS: levETIRAcetam 500 MG TAB PO SCH ×2 (10:13→21:22)
[2020-10-10] MEDS: METFORMIN HCL 500 MG TAB PO SCH ×2 (10:15→17:16)
[2020-10-10] MEDS: VITAMIN D 5,000 UNIT CAP PO SCH (10:15)
[2020-10-10] MEDS: acetaZOLAMIDE 250 MG TAB PO SCH ×2 (10:15→21:22)
[2020-10-10] MEDS: AMLODIPINE 5 MG TAB PO SCH (10:15)
[2020-10-10] MEDS: LOSARTAN POTASSIUM 50 MG TABLET PO SCH (10:15)
[2020-10-10 10:16] LABS: Arterial Blood Carboxyhemoglob 1.2 % (0-1.5); Blood O2 Saturation 98.2 % (92-98.5)
--- NOTE | 2020-10-10 15:01 | P.PN ---
Subjective Date of Service: 10/10/20 Chief Complaint: DIFFUSE EDEMA Subjective: Improving SHE IS WEAK HAS GENERALIZED EDEMA, IS ABLE TO GET OUT OF BED. SHE DENIES ANY CHEST PAIN, OR HEADACHES. Review of Systems 10-point ROS is otherwise unremarkable General: Weakness Physical Examination - Vital Signs Temperature: 98.2 F Blood Pressure: 134/77 Pulse: 90 Respirations: 24 Pulse Ox (%): 94 - Physical Exam General: Oriented x3, Mild distress, Obese HEENT: Atraumatic, PERRLA, Other (FACIAL EDEMA.), EOMI Neck: Supple, JVD not distended Respiratory: Clear to auscultation bilaterally, Normal air movement Cardiovascular: Regular rate/rhythm, Normal S1 S2 Gastrointestinal: Normal bowel sounds, No tenderness Musculoskeletal: No tenderness Integumentary: No rashes Neurological: Normal speech, Normal tone, Normal affect Lymphatics: No axilla or inguinal lymphadenopathy - Studies Laboratory Data (last 24 hrs) 10/10/20 03:05: Sodium 142, Potassium 3.5, BUN 26 H, Creatinine 0.95, Glucose 142 H, Phosphorus 2.6, Magnesium 1.6 L 10/10/20 03:05: WBC 5.80, Hgb 15.8 H, Hct 51.0 H, Plt Count 188 10/09/20 20:41: Sodium 143, Potassium 3.6, BUN 27 H, Creatinine 1.08, Glucose 91 Microbiology Data (last 24 hrs): 10/08/20 00:35 Clean Catch Urine [place] Count - Final BETWEEN 10,000 & 100,000 CFU/ML 10/08/20 00:35 Clean Catch Urine - Final MIXED JAYDA. Medications List Reviewed: Yes Assessment And Plan - Current Problems (Diagnosis) (1) Anasarca Current Visit: Yes Status: Acute Plan: THIS CAN BE FROM NEPHROTIC SYNDROME. I CONSULTED DR. ENGEL TEAM. HER PROTEIN CREAT RATIO IS ABOUT 10. NEPHROLOGY TEAM ON THE CASE. WORKUP SHOWS MORE THAN 8 GM OF PROTEIN LOSS DAILY. THIS SUGGESTS NEPHROTIC SYNDROME. DR. REYEZ SAW PATIENT TODAY. WORKUP OF ETIOLOGY IN PROCESS. SHE IS AN EARLY DIABETIC. (2) Brainstem hemorrhage Current Visit: Yes Status: Acute Plan: ON CT SCAN SHE HAS BRAIN BLEED THAT IS STABLIZED PER DR. FITZGERALD. THERE IS MILD SHIFT BUT SHE HAS NO SYMPTOMS. I STARTED KEPPRA. DR. FITZGERALD ADVISES CT IN AM AGAIN TO SEE STABILITY. SHE IS ALREADY ON IV LASIX. REPEAT CT TODAY TO SEE THE PROGRESSION. CT DONE SHOW SMALLER SIZE OF HEMORRHAGE. Qualifiers: Intracerebral hemorrhage etiology: nontraumatic (3) HTN (hypertension) Current Visit: Yes Status: Chronic Plan: STOPPED AMLODIPINE AND LISINOPRIL STARTED LOSARTAN. Qualifiers: Hypertension type: essential hypertension Qualified Code(s): I10 - Essential (primary) hypertension (4) Diabetes Current Visit: Yes Status: Chronic Plan: CHECK A1C LDL Qualifiers: Diabetes mellitus type: type 2 (5) Hypokalemia Current Visit: Yes Status: Acute Plan: STOP LASIX DRIP REPLACE K DR. REYEZ BUSINESS INFO CONSULTANT TODAY. WORK UP OF NEPHROTIC SYNDROME IN PROCESS. (6) Hypercarbia Current Visit: Yes Status: Acute Plan: SHE MAY HAVE BASELINE SLEEP APNEA AND THAT MAY HAVE GIVEN RISE TO THIS ISSUE. DIAMOX BIPAP IS ALREADY HELPING . WILL REDUCE FIO2 TO REDUCE PCO2.
--- NOTE | 2020-10-10 16:26 | RAD REPORT ---
EXAM DESCRIPTION: Head Brain Wo Cont CLINICAL HISTORY: 60 years Female hx brain bleed. Follow up previous CT TECHNIQUE: Axial noncontrast CT head with coronal and sagittal reformats. All CT scans at this facil ity use dose modulation, iterative reconstruction, and/or weight based dosing when appropriate to red uce radiation dose to as low as reasonably achievable. COMPARISON: 10/07/2020. FINDINGS: Brain: Decreasing right basal ganglia hemorrhage measuring 1 cm, previously 2 cm with surr ounding vasogenic edema. No new hemorrhage. No midline shift. Chronic small vessel disease. No obviou s large acute territorial infarction. Ventricles: No hydrocephalus. Orbits: Unremarkable. Sinuses: Visualized portions are clear. Mastoid: Clear. Osseous: Unremarkable. Soft tissues: Unremarkable. IMPRESSION: 1. Decreasing right basal ganglia hemorrhage measuring 1 cm, previously 2 cm. 2. No new hemorrhage. Electronically signed by: Alessandro Gandara MD 10/09/2020 5:42 AM CDT Due to temporary technical issues with the PACS/Fluency reporting system, reports are being signed by the in house radiologists without review as a courtesy to insure prompt reporting. The interpreting radiologist is fully responsible for the content of the report.
[2020-10-10] MEDS ORDERED: MAGNESIUM OXIDE 400 MG TAB PO SCH (21:00)
[2020-10-10] MEDS: POTASSIUM CL SA 10 MEQ TAB PO SCH (21:21)
[2020-10-10] MEDS: ATORVASTATIN 80 MG TAB PO SCH (21:21)
[2020-10-10] MEDS: MAGNESIUM OXIDE 400 MG TAB PO SCH (21:22)
--- NOTE | 2020-10-11 00:40 | PN ---
Date of Progress Note: 10/10/2020 Chief Complaint: Anasarca, fluid overload, nephrotic range proteinuria, hypertension, electrolytes a bnormalities, acid base disorder. History Of Present Illness: The patient has multiple medical problems. 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 She developed sudden onset of weaknes s of the right hand and was admitted to [facility] for intracerebral hemorrhage. She was seen during this admission by urologist and she recommended diuretic for volume control. Lasix w as started with Lasix drip, although the patient developed metabolic alkalosis and Diamox was started . Currently, the patient is on Diamox and spironolactone. She is diuresing well effectively. She i s feeling better. She was started on BiPAP. The patient has nephrotic range proteinuria, edema, vitor sarca, hypoalbuminemia. She responded to Lasix drip, although Lasix drip was stopped due to metaboli c alkalosis. Review of Systems: The patient denies PND or orthopnea. Physical Examination: Lungs: Clear to auscultation bilaterally. Heart: S1, S2. Abdomen: Soft, benign. Extremities: Edema has improved. Laboratory Data: Sodium 142, potassium 3.5, chloride 96, CO2 greater than 45, BUN 26, creatinine 0.9 5, magnesium 1.6, phosphorus 2.6, calcium 8.3, glucose 142. Impression And Plan: 1.Diabetes mellitus with renal manifestation. The patient was found to have severe proteinuria, vitor sarca, fluid overload. She is on diuretic for volume control. The patient will continue Diamox and potassium replacement along with spironolactone to prevent hypokalemia and metabolic alkalosis. Lasi x is on hold. 2.Hypomagnesemia. The patient received replacement. 3.Diabetes mellitus with renal manifestation. The patient may need renal biopsy to rule out nephrit is. 4.The patient was seen by neurologist for history of intracranial hemorrhage. Further recommendatio n from Neurology. EB/MODL Voice ID: [id number] Report ID: [id number]
[2020-10-11 05:57] LABS: Absolute Lymphocytes (CBC) 1.5 K/uL (0.7-4.9); Hematocrit 53.4 % (36.0-45.0); Lymphocytes % 25.9 % (15.3-44.8); MPV 10.2 fL (7.6-11.3); RBC Red Blood Cell Count 5.76 M/uL (3.86-4.86)
[2020-10-11 06:05] LABS: Albumin 2.3 g/dL (3.4-5.0); Magnesium 2.2 mg/dL (1.8-2.4); Phosphorus 2.4 mg/dL (2.5-4.9); Potassium 4.1 mmol/L (3.5-5.1)
[2020-10-11] MEDS: INSULIN -REGULAR HUMAN 50 UNIT/0.5 ML ML SQ SCH ×4 (07:30→20:39)
[2020-10-11] MEDS: METFORMIN HCL 500 MG TAB PO SCH ×2 (08:16→16:38)
[2020-10-11] MEDS: LOSARTAN POTASSIUM 50 MG TABLET PO SCH (08:16)
[2020-10-11] MEDS: JUVEN PACKET PO SCH ×2 (08:16→20:39)
[2020-10-11] MEDS: POTASSIUM CL SA 10 MEQ TAB PO SCH ×2 (08:19→20:38)
[2020-10-11] MEDS: MAGNESIUM OXIDE 400 MG TAB PO SCH ×2 (08:19→20:39)
[2020-10-11] MEDS: AMLODIPINE 5 MG TAB PO SCH (08:19)
[2020-10-11] MEDS: levETIRAcetam 500 MG TAB PO SCH ×2 (08:19→20:38)
[2020-10-11] MEDS: VITAMIN D 5,000 UNIT CAP PO SCH (08:20)
[2020-10-11] MEDS: SPIRONOLACTONE 25 MG TABLET PO SCH (08:20)
[2020-10-11] MEDS: POTASS/SODIUM PHOSPHATE 1 PKT POWD.PACK PO SCH (08:25)
--- NOTE | 2020-10-11 09:36 | P.PN ---
Subjective Date of Service: 10/11/20 Chief Complaint: DIFFUSE EDEMA Subjective: Improving SHE IS WEAK HAS GENERALIZED EDEMA, IS ABLE TO GET OUT OF BED. SHE DENIES ANY CHEST PAIN, OR HEADACHES. SHE IS OFF BIPAP NOW. DOWN TO 1 LT NC. SHE MAY BE ABLE TO GET OFF OXYGEN. SHE IS MENTALLY MUCH MORE CLEAR. 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 Review of Systems 10-point ROS is otherwise unremarkable General: Weakness Physical Examination - Vital Signs Temperature: 97.7 F Blood Pressure: 150/70 Pulse: 83 Respirations: 18 Pulse Ox (%): 91 - Physical Exam General: Oriented x3, Mild distress, Obese, Other (EDEMA HAS IMPROVED. ) HEENT: Atraumatic, PERRLA, EOMI Neck: Supple, JVD not distended Respiratory: Clear to auscultation bilaterally, Normal air movement Cardiovascular: Regular rate/rhythm, Normal S1 S2 Gastrointestinal: Normal bowel sounds, No tenderness Musculoskeletal: No tenderness Integumentary: No rashes Neurological: Normal speech, Normal tone, Normal affect Lymphatics: No axilla or inguinal lymphadenopathy - Studies Laboratory Data (last 24 hrs) 10/11/20 05:05: Sodium 142, Potassium 4.1, BUN 27 H, Creatinine 0.90, Glucose 119 H, Phosphorus 2.4 L, Magnesium 2.2 D 10/11/20 05:05: WBC 5.60, Hgb 16.7 H, Hct 53.4 H, Plt Count 183 Microbiology Data (last 24 hrs): 10/08/20 00:35 Clean Catch Urine [place] Count - Final BETWEEN 10,000 & 100,000 CFU/ML 10/08/20 00:35 Clean Catch Urine - Final MIXED JAYDA. Medications List Reviewed: Yes Assessment And Plan - Current Problems (Diagnosis) (1) Anasarca Current Visit: Yes Status: Acute Plan: THIS CAN BE FROM NEPHROTIC SYNDROME. I CONSULTED DR. ENGEL TEAM. HER PROTEIN CREAT RATIO IS ABOUT 10. NEPHROLOGY TEAM ON THE CASE. WORKUP SHOWS MORE THAN 8 GM OF PROTEIN LOSS DAILY. THIS SUGGESTS NEPHROTIC SYNDROME. DR. REYEZ SAW PATIENT TODAY. WORKUP OF ETIOLOGY IN PROCESS. SHE IS AN EARLY DIABETIC. CARPIO IN PROCESS DR. REYEZ SAW PATIENT TODAY. (2) Brainstem hemorrhage Current Visit: Yes Status: Acute Plan: ON CT SCAN SHE HAS BRAIN BLEED THAT IS STABLIZED PER DR. FITZGERALD. THERE IS MILD SHIFT BUT SHE HAS NO SYMPTOMS. I STARTED KEPPRA. DR. FITZGERALD ADVISES CT IN AM AGAIN TO SEE STABILITY. SHE IS ALREADY ON IV LASIX. REPEAT CT TODAY TO SEE THE PROGRESSION. CT DONE SHOW SMALLER SIZE OF HEMORRHAGE. Qualifiers: Intracerebral hemorrhage etiology: nontraumatic (3) HTN (hypertension) Current Visit: Yes Status: Chronic Plan: STOPPED AMLODIPINE AND LISINOPRIL STARTED LOSARTAN. Qualifiers: Hypertension type: essential hypertension Qualified Code(s): I10 - Essential (primary) hypertension (4) Diabetes Current Visit: Yes Status: Chronic Plan: CHECK A1C LDL Qualifiers: Diabetes mellitus type: type 2 (5) Hypokalemia Current Visit: Yes Status: Acute Plan: STOP LASIX DRIP REPLACE K DR. REYEZ SHEET METAL DUCT INSTALLER HELPER TODAY. WORK UP OF NEPHROTIC SYNDROME IN PROCESS. (6) Hypercarbia Current Visit: Yes Status: Acute Plan: SHE MAY HAVE BASELINE SLEEP APNEA AND THAT MAY HAVE GIVEN RISE TO THIS ISSUE. DIAMOX BIPAP IS ALREADY HELPING . WILL REDUCE FIO2 TO REDUCE PCO2. (7) BERNARDINO (obstructive sleep apnea) Current Visit: Yes Status: Chronic Plan: SHE USES CPAP DAILY. AFTER METABOLIC ALKALOSIS INDUCED BY LASIX SHE GOT WORSE BUT NOW GETTING BACK TO NORMAL.
[2020-10-11] MEDS: ATORVASTATIN 80 MG TAB PO SCH (20:38)
--- NOTE | 2020-10-11 21:41 | PN ---
Date of Progress Note: 10/11/2020 Chief Complaint: Anasarca, fluid overload, nephrotic range proteinuria, nephrotic syndrome. History Of Present Illness: The patient has multiple medical problems including history of obstructi ve sleep apnea, hypertension, diabetes mellitus with renal manifestation. She was found to have prot einuria and developed progressively worse fluid overload with anasarca. She was started on Lasix dri p and was found to have metabolic alkalosis. Diamox was started to treat metabolic alkalosis related to Lasix drip. Lasix drip currently is on hold and Lasix IV is stopped as well. The patient is currently on Diamox and spironolactone. Fluid intake is adequate. The patient has ad equate diuresis. The patient is feeling better. The patient was started on BiPAP for respiratory ac idosis. Lasix drip currently is on hold and Lasix will be used as needed. The patient denies PND or orthopnea. Physical Examination: Lungs: Clear to auscultation bilaterally. Heart: S1, S2. Abdomen: Soft, benign. Extremities: Edema has improved. Laboratory Data: Sodium 142, potassium 4.1, chloride 104, CO2 36, BUN 27, creatinine 0.9, glucose 11 9, calcium 8.8, phosphorus 2.4, magnesium 2.2. Impression And Plan: 1.Chronic kidney disease associated with severe proteinuria, nephrotic range proteinuria. Likely is due to diabetes mellitus and diabetic kidney disease, although nephritis needs to be rule out. The p atient is improving with fluid overload. Anasarca gradually responding to diuretic. Continue spiron olactone and Diamox. Monitor electrolytes. The patient was found to have hypophosphatemia and recei yajaira replacement. Magnesium replacement was adjusted. 2.Diabetes mellitus with renal manifestation. The patient will need renal biopsies to evaluate for causes of nephrotic range proteinuria. EB/MODL Voice ID: [id number] Report ID: [id number]
[2020-10-12 06:40] LABS: Albumin 2.3 g/dL (3.4-5.0); Phosphorus 3.3 mg/dL (2.5-4.9); Potassium 4.7 mmol/L (3.5-5.1)
[2020-10-12] MEDS: INSULIN -REGULAR HUMAN 50 UNIT/0.5 ML ML SQ SCH ×4 (07:30→20:52)
[2020-10-12] MEDS ORDERED: METFORMIN HCL 500 MG TAB PO SCH (08:00)
[2020-10-12] MEDS: MAGNESIUM OXIDE 400 MG TAB PO SCH ×2 (09:00→20:51)
[2020-10-12] MEDS: LOSARTAN POTASSIUM 50 MG TABLET PO SCH (10:08)
[2020-10-12] MEDS: AMLODIPINE 5 MG TAB PO SCH (10:09)
[2020-10-12] MEDS: SITAGLIPTIN PHOS 100 MG TAB PO SCH (10:09)
[2020-10-12] MEDS: SPIRONOLACTONE 25 MG TABLET PO SCH (10:10)
[2020-10-12] MEDS: POTASSIUM CL SA 10 MEQ TAB PO SCH ×2 (10:11→20:51)
[2020-10-12] MEDS: VITAMIN D 5,000 UNIT CAP PO SCH (10:12)
[2020-10-12] MEDS: POTASS/SODIUM PHOSPHATE 1 PKT POWD.PACK PO SCH (10:13)
[2020-10-12] MEDS: levETIRAcetam 500 MG TAB PO SCH ×2 (10:13→20:50)
[2020-10-12] MEDS: JUVEN PACKET PO SCH ×2 (10:20→20:51)
[2020-10-12] MEDS: SPIRONOLACTONE 100 MG TAB PO SCH (11:48)
--- NOTE | 2020-10-12 14:39 | PN ---
Date of Progress Note: 10/12/2020 Subjective: The patient was admitted with anasarca. The patient's workup show chronic kidney disease with nephrotic-range proteinuria. The patient was started on diuresis. Swelling has been subsided significantly. Kidney function stayed stable. Urinalysis, no active sediment. Physical Examination: Vital Signs: When I saw the patient; blood pressure 133/74, pulse of 92, afebrile. The patient had good urine output of 2100, negative of 1 L. As weight dumont, the patient down to 176, the patient lost 14 pounds from admission. Chest: Decreased entry bilateral base. Heart: S1, S2. Systolic murmur. Abdomen: Soft, nontender. Extremity: Trace edema. Neuro: Alert, oriented. No focality. Laboratory Data: Sodium 145, potassium 4.7, bicarb 34, BUN 27, creatinine 0.8, calcium 8.6, phosphorus 3.3, albumin 2.3. Corrected calcium 9.4. Serum protein electrophoresis is still pending. TSH 8.1. Vitamin D is still pending. Serology still pending. Current Medications: The patient on include amlodipine 10 mg, losartan 100, spironolactone 100, Keppra, insulin, vitamin D. Assessment And Plan: 1. Chronic kidney disease, nephrotic-range proteinuria mostly secondary to diabetes given no activity on the urine. Kidney function being stable. The patient tolerating ARB very well. I am going to continue to monitor. I do not see the need to do any kidney biopsy for the time being and we will follow up the patient. 2. Nephrotic-range proteinuria. Workup, serology and serum protein electrophoresis are still pending. Mostly secondary to diabetes. I am going to continue current ARB and we will monitor the patient. 3. Anasarca secondary to nephrotic-range proteinuria as above. No need for Diamox. I am going to go ahead and get chest x-ray for better evaluation of the fluid status. 4. Hypertension. We will utilize blood pressure for more diuresis. 5. Hypothyroidism. The patient was started on levothyroxine. We will follow up. time spend discussing with patient exam the patient face to face , reviewing the data, placing order , discussing with other steam boiler fireman including nursing staff , discussing with hospitalist and other individual pension consultant 45 min DANDY Voice ID: [id number] Report ID: [id number] MTDD
--- NOTE | 2020-10-12 16:02 | RAD REPORT ---
EXAM DESCRIPTION: RAD - Chest Single View - 10/12/2020 3:46 pm CLINICAL HISTORY: COPD COMPARISON: Portable September 22, two view chest August 2017 TECHNIQUE: AP portable chest image was obtained 10/12/2020 3:46 pm . FINDINGS: Lung volumes are low. No peripheral mass or consolidation. Fullness of the right dmitry or r ight pulmonary artery matches the study back to 2018. Low lung volumes accentuate vasculature. Heart size is normal range for shallow inspiration portable exam. No measurable pleural effusion and no pne umothorax. No acute bony abnormality seen. No acute aortic findings suspected. IMPRESSION: No acute cardiopulmonary process. No significant change from comparison study.
[2020-10-12] MEDS: ATORVASTATIN 80 MG TAB PO SCH (20:49)
--- NOTE | 2020-10-12 21:57 | P.PN ---
Subjective Date of Service: 10/12/20 Chief Complaint: DIFFUSE EDEMA Subjective: Improving SHE IS WEAK HAS GENERALIZED EDEMA, IS ABLE TO GET OUT OF BED. SHE DENIES ANY CHEST PAIN, OR HEADACHES. SHE IS OFF BIPAP NOW. DOWN TO 1 LT NC. SHE MAY BE ABLE TO GET OFF OXYGEN. SHE IS MENTALLY MUCH MORE CLEAR. 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 BHUPENDRA IS STILL WEAK BUT MARTA TO WALK. HAS OXYGEN AT HOME GIVEN BY TAFT DOCTORS. SHE DOES NOT HAVE COPD OR CHF FOR DIAGNOSIS. PE HAS BEEN RULED OUT. Physical Examination - Vital Signs Temperature: 98.5 F Blood Pressure: 126/73 Pulse: 85 Respirations: 16 Pulse Ox (%): 97 - Physical Exam General: Oriented x3, Mild distress, Obese HEENT: Atraumatic, PERRLA, EOMI Neck: Supple, JVD not distended Respiratory: Clear to auscultation bilaterally, Normal air movement Cardiovascular: Regular rate/rhythm, Normal S1 S2 Gastrointestinal: Normal bowel sounds, No tenderness Musculoskeletal: No tenderness Integumentary: No rashes Neurological: Normal speech, Normal tone, Normal affect Lymphatics: No axilla or inguinal lymphadenopathy - Studies Laboratory Data (last 24 hrs) 10/12/20 05:57: Magnesium 2.3 10/12/20 05:57: Sodium 145, Potassium 4.7, BUN 27 H, Creatinine 0.88, Glucose 151 H, Phosphorus 3.3 Medications List Reviewed: Yes Assessment And Plan - Current Problems (Diagnosis) (1) Anasarca Current Visit: Yes Status: Acute Plan: THIS CAN BE FROM NEPHROTIC SYNDROME. I CONSULTED DR. ENGEL TEAM. HER PROTEIN CREAT RATIO IS ABOUT 10. NEPHROLOGY TEAM ON THE CASE. WORKUP SHOWS MORE THAN 8 GM OF PROTEIN LOSS DAILY. THIS SUGGESTS NEPHROTIC SYNDROME. DR. REYEZ SAW PATIENT TODAY. WORKUP OF ETIOLOGY IN PROCESS. SHE IS AN EARLY DIABETIC. CARPIO IN PROCESS DR. REYEZ SAW PATIENT TODAY. BIOPSY FOR KIDNEYS IN AM. (2) Brainstem hemorrhage Current Visit: Yes Status: Acute Plan: ON CT SCAN SHE HAS BRAIN BLEED THAT IS STABLIZED PER DR. FITZGERALD. THERE IS MILD SHIFT BUT SHE HAS NO SYMPTOMS. I STARTED KEPPRA. DR. FITZGERALD ADVISES CT IN AM AGAIN TO SEE STABILITY. SHE IS ALREADY ON IV LASIX. REPEAT CT TODAY TO SEE THE PROGRESSION. CT DONE SHOW SMALLER SIZE OF HEMORRHAGE. Qualifiers: Intracerebral hemorrhage etiology: nontraumatic (3) HTN (hypertension) Current Visit: Yes Status: Chronic Plan: STOPPED AMLODIPINE AND LISINOPRIL STARTED LOSARTAN. Qualifiers: Hypertension type: essential hypertension Qualified Code(s): I10 - Essential (primary) hypertension (4) Diabetes Current Visit: Yes Status: Chronic Plan: CHECK A1C LDL Qualifiers: Diabetes mellitus type: type 2 (5) Hypokalemia Current Visit: Yes Status: Acute Plan: STOP LASIX DRIP REPLACE K DR. REYEZ JUDGE TODAY. WORK UP OF NEPHROTIC SYNDROME IN PROCESS. (6) Hypercarbia Current Visit: Yes Status: Acute Plan: SHE MAY HAVE BASELINE SLEEP APNEA AND THAT MAY HAVE GIVEN RISE TO THIS ISSUE. DIAMOX BIPAP IS ALREADY HELPING . WILL REDUCE FIO2 TO REDUCE PCO2. ALSO HYPOXIA BUT SHE DOES NOT HAVE COPD TO JUSTIFY IT. SOMEHOW FROM TAFT OXYGEN WAS ORDERED. (7) BERNARDINO (obstructive sleep apnea) Current Visit: Yes Status: Chronic Plan: SHE USES CPAP DAILY. AFTER METABOLIC ALKALOSIS INDUCED BY LASIX SHE GOT WORSE BUT NOW GETTING BACK TO NORMAL.
[2020-10-13] MEDS: LEVOTHYROXINE SOD 0.05 MG TABLET PO SCH (06:00)
[2020-10-13 06:29] LABS: Albumin 2.6 g/dL (3.4-5.0); Phosphorus 3.2 mg/dL (2.5-4.9); Potassium 4.9 mmol/L (3.5-5.1)
[2020-10-13] MEDS: INSULIN -REGULAR HUMAN 50 UNIT/0.5 ML ML SQ SCH ×4 (07:30→20:39)
[2020-10-13] MEDS: POTASSIUM CL SA 10 MEQ TAB PO SCH ×2 (09:00→20:37)
[2020-10-13] MEDS: VITAMIN D 5,000 UNIT CAP PO SCH ×2 (09:00→13:27)
[2020-10-13] MEDS: MAGNESIUM OXIDE 400 MG TAB PO SCH ×3 (09:00→20:38)
[2020-10-13] MEDS: JUVEN PACKET PO SCH ×3 (09:00→21:00)
[2020-10-13] MEDS: SITAGLIPTIN PHOS 100 MG TAB PO SCH ×2 (09:00→13:26)
[2020-10-13] MEDS ORDERED: NA CHLORIDE 0.9% 1,000 ML ONE (09:17)
[2020-10-13] MEDS ORDERED: MIDAZOLAM HCL 2 MG/2 ML INJ ONE (09:47)
[2020-10-13] MEDS ORDERED: FENTANYL CITR 100 MCG/2 ML ONE (09:48)
[2020-10-13] MEDS: SPIRONOLACTONE 100 MG TAB PO SCH (09:52)
[2020-10-13] MEDS: levETIRAcetam 500 MG TAB PO SCH ×2 (09:52→20:38)
[2020-10-13] MEDS: AMLODIPINE 5 MG TAB PO SCH (09:52)
[2020-10-13] MEDS: LOSARTAN POTASSIUM 50 MG TABLET PO SCH (09:52)
[2020-10-13] MEDS: acetaZOLAMIDE 250 MG TAB PO SCH (09:55)
[2020-10-13] MEDS ORDERED: NALOXONE 0.4 MG/ML VIAL ONE (10:38)
--- NOTE | 2020-10-13 11:48 | PN ---
Date of Progress Note: 10/13/2020 Subjective: The patient was admitted with anasarca, nephrotic-range proteinuria, acute kidney injury. The patient was started on diuresis, responding very well. Still has some shortness of breath, required oxygenation. Physical Examination: Vital Signs: Blood pressure 153/80, pulse of 89, afebrile. The patient had good urine output. Lost 14 pounds from admission. Chest: Decreased air entry bilateral base. Heart: S1, S2. Systolic murmur. Abdomen: Soft, nontender. Extremity: Trace edema. Neurologic: Alert. No focality. The patient is on nasal cannula. Laboratory Data: WBC 5.6, H and H 16.7/53. Sodium 143, potassium 4.9, bicarb 34 and continued to trend down, BUN 34, creatinine 0.9, calcium 9.5, phosphorus 3.2, albumin 2.6. Serum protein electrophoresis is still pending. Serology and immunology still pending. Current Medications: The patient on include amlodipine 10, losartan 100, spironolactone, Keppra, loperamide, acetazolamide has been resumed yesterday by Pulmonary, levothyroxine, KCl. Assessment And Plan: 1. 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 Plan for biopsy today. I am going to go ahead and proceed with biopsy today and we will follow up serology. Continue ARB for the time being. Continue diuresis. I am going to continue on the spironolactone. We will place the patient on oral Lasix and we will follow up the patient. 2. Nephrotic-range proteinuria, as above. 3. Anasarca secondary to nephrotic syndrome. The patient is on statin already. Workup is still pending. We will follow up serology and kidney biopsy. I am going to go ahead and get echocardiogram for better evaluation of the right heart failure. 4. Possible pulmonary hypertension. The patient was resumed on acetazolamide. Continue calcium channel zaida. We will follow up echocardiogram. 5. Alkalosis secondary to hypercapnic respiratory acidosis. The patient was resumed on acetazolamide by Pulmonary. We will follow up. Continue spironolactone. time spend discussing with patient exam the patient face to face , reviewing the data, placing order , discussing with other steam and gas turbines assembler including nursing staff , calling the patient bk over the phone discussing with hospitalist and other science consultant 45 min DANDY Voice ID: [id number] Report ID: [id number] MTDCarol Ann
--- NOTE | 2020-10-13 12:39 | RAD REPORT ---
EXAM DESCRIPTION: CT - Renal Biopsy CT - 10/13/2020 11:30 am CLINICAL HISTORY: nephrotic syndrome Flank pain COMPARISON: No comparisons FINDINGS: Preoperative diagnosis: Nephrotic syndrome Post operative diagnosis: Same Conscious Sedation: 45 minutes of IV conscious sedation utilizing midazolam and fentanyl.. Patient was continuously monitored by nursing staff. Contrast used: NONE Estimated blood loss: less than 5 mL Specimens: 2 x 18 gauge 2 cm specimens left kidney The patient was placed prone on the table and the left posterior flank area was prepped and draped in the usual sterile fashion. 1% lidocaine was infiltrated into the subcutaneous tissues for local anes thesia. Under computed tomographic guidance, a 17 gauge introducer was advanced into the inferior cristiano e of the left kidney. Subsequently, a 18 gauge, 11 cm long, 20 mm throw core biopsy gun was advanced into the left kidney and 2 cores were obtained. Postprocedure imaging demonstrated no complications. Samples were given to pathology for analysis. Th e patient tolerated the procedure without immediate complication and transferred to her room in sta e condition. IMPRESSION: Successful CT -guided nonfocal left renal biopsy. 45 minutes monitored IV conscious sedation was utilized. All CT scans are performed using dose optimization technique as appropriate and may include automated exposure control or mA/KV adjustment according to patient size.
[2020-10-13] MEDS ORDERED: D50W 25 GM/50 ML VIAL IV PRN (14:00)
[2020-10-13 18:20] LABS: HBsAG Nonreactive (Nonreactive)
--- NOTE | 2020-10-13 20:01 | P.PN ---
Subjective Date of Service: 10/13/20 Chief Complaint: DIFFUSE EDEMA SHE IS WEAK HAS GENERALIZED EDEMA, IS ABLE TO GET OUT OF BED. SHE DENIES ANY CHEST PAIN, OR HEADACHES. SHE IS OFF BIPAP NOW. DOWN TO 1 LT NC. SHE MAY BE ABLE TO GET OFF OXYGEN. SHE IS MENTALLY MUCH MORE CLEAR. 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 BHUPENDRA IS STILL WEAK BUT MARTA TO WALK. HAS OXYGEN AT HOME GIVEN BY [facility]. SHE DOES NOT HAVE COPD OR CHF FOR DIAGNOSIS. PE HAS BEEN RULED OUT. SHE IS ABLE TO WALK AROUND SHE IS WEAK BUT GETTING STRONGER Review of Systems 10-point ROS is otherwise unremarkable General: Weakness Respiratory: Shortness of Breath (HYPOPNEA.) Physical Examination - Vital Signs Temperature: 98.5 F Blood Pressure: 117/64 Pulse: 89 Respirations: 18 Pulse Ox (%): 94 - Physical Exam General: Oriented x3, Mild distress, Obese HEENT: Atraumatic, PERRLA, EOMI Neck: Supple, JVD not distended Respiratory: Clear to auscultation bilaterally, Normal air movement Cardiovascular: Regular rate/rhythm, Normal S1 S2 Gastrointestinal: Normal bowel sounds, No tenderness Musculoskeletal: No tenderness Integumentary: No rashes Neurological: Normal speech, Normal tone, Normal affect Lymphatics: No axilla or inguinal lymphadenopathy - Studies Laboratory Data (last 24 hrs) 10/13/20 05:54: Sodium 143, Potassium 4.9, BUN 34 H, Creatinine 0.99, Glucose 12 9 H, Phosphorus 3.2 Medications List Reviewed: Yes Assessment And Plan - Current Problems (Diagnosis) (1) Anasarca Current Visit: Yes Status: Acute Plan: THIS CAN BE FROM NEPHROTIC SYNDROME. I CONSULTED DR. ENGEL TEAM. HER PROTEIN CREAT RATIO IS ABOUT 10. NEPHROLOGY TEAM ON THE CASE. WORKUP SHOWS MORE THAN 8 GM OF PROTEIN LOSS DAILY. THIS SUGGESTS NEPHROTIC SYNDROME. DR. REYEZ SAW PATIENT TODAY. WORKUP OF ETIOLOGY IN PROCESS. SHE IS AN EARLY DIABETIC. CARPIO IN PROCESS DR. REYEZ SAW PATIENT TODAY. BIOPSY FOR KIDNEYS IN AM. BIOPSY DONE TODAY. DC HOME IN AM. (2) Brainstem hemorrhage Current Visit: Yes Status: Acute Plan: ON CT SCAN SHE HAS BRAIN BLEED THAT IS STABLIZED PER DR. FITZGERALD. THERE IS MILD SHIFT BUT SHE HAS NO SYMPTOMS. I STARTED KEPPRA. DR. FITZGERALD ADVISES CT IN AM AGAIN TO SEE STABILITY. SHE IS ALREADY ON IV LASIX. REPEAT CT TODAY TO SEE THE PROGRESSION. CT DONE SHOW SMALLER SIZE OF HEMORRHAGE. Qualifiers: Intracerebral hemorrhage etiology: nontraumatic (3) HTN (hypertension) Current Visit: Yes Status: Chronic Plan: STOPPED AMLODIPINE AND LISINOPRIL STARTED LOSARTAN. Qualifiers: Hypertension type: essential hypertension Qualified Code(s): I10 - Essential (primary) hypertension (4) Diabetes Current Visit: Yes Status: Chronic Plan: CHECK A1C LDL Qualifiers: Diabetes mellitus type: type 2 (5) Hypokalemia Current Visit: Yes Status: Acute Plan: STOP LASIX DRIP REPLACE K DR. REYEZ SUSTAINABILITY ENGINEER TODAY. WORK UP OF NEPHROTIC SYNDROME IN PROCESS. (6) Hypercarbia Current Visit: Yes Status: Acute Plan: SHE MAY HAVE BASELINE SLEEP APNEA AND THAT MAY HAVE GIVEN RISE TO THIS ISSUE. DIAMOX BIPAP IS ALREADY HELPING . WILL REDUCE FIO2 TO REDUCE PCO2. ALSO HYPOXIA BUT SHE DOES NOT HAVE COPD TO JUSTIFY IT. SOMEHOW FROM [facility] O[facility] WAS ORDERED. (7) BERNARDINO (obstructive sleep apnea) Current Visit: Yes Status: Chronic Plan: SHE USES CPAP DAILY. AFTER METABOLIC ALKALOSIS INDUCED BY LASIX SHE GOT WORSE BUT NOW GETTING BACK TO NORMAL. REDUCE OXYGEN NEED IF CAN TO IMPROVE HYPOXIC DRIVE.
[2020-10-13 20:18] LABS: Vitamin D 1,25-Dihydroxy Total 28 pg/mL (18-72); Vitamin D,1,25-OH2, D2 <8 pg/mL
[2020-10-13] MEDS: ATORVASTATIN 80 MG TAB PO SCH (20:38)
[2020-10-14] MEDS: LEVOTHYROXINE SOD 0.05 MG TABLET PO SCH (06:00)
[2020-10-14 06:34] LABS: Albumin 2.5 g/dL (3.4-5.0); Phosphorus 3.8 mg/dL (2.5-4.9); Potassium 4.7 mmol/L (3.5-5.1)
[2020-10-14 07:03] LABS: Arterial Blood Carboxyhemoglob 1.3 % (0-1.5)
[2020-10-14] MEDS: INSULIN -REGULAR HUMAN 50 UNIT/0.5 ML ML SQ SCH ×4 (08:57→20:43)
[2020-10-14] MEDS: levETIRAcetam 500 MG TAB PO SCH ×2 (08:58→20:23)
[2020-10-14] MEDS: LOSARTAN POTASSIUM 50 MG TABLET PO SCH (08:58)
[2020-10-14] MEDS: AMLODIPINE 5 MG TAB PO SCH (08:59)
[2020-10-14] MEDS: SITAGLIPTIN PHOS 100 MG TAB PO SCH (08:59)
[2020-10-14] MEDS: SPIRONOLACTONE 100 MG TAB PO SCH (08:59)
[2020-10-14] MEDS: VITAMIN D 5,000 UNIT CAP PO SCH (08:59)
[2020-10-14] MEDS ORDERED: FUROSEMIDE 40 MG TABLET PO SCH ×2 (09:00)
[2020-10-14] MEDS: POTASSIUM CL SA 10 MEQ TAB PO SCH (09:00)
[2020-10-14] MEDS: MAGNESIUM OXIDE 400 MG TAB PO SCH (09:00)
[2020-10-14] MEDS: acetaZOLAMIDE 250 MG TAB PO SCH (09:00)
[2020-10-14] MEDS: JUVEN PACKET PO SCH ×2 (09:00→20:24)
--- NOTE | 2020-10-14 09:13 | ECHO ---
HEIGHT: 5 ft 2 in WEIGHT: 176 lb 9.6 oz DATE OF STUDY: 10/13/[address]: Sultana Mo MD 2-DIMENSIONAL: YES M.MODE: YES DOPPLER: YES COLOR FLOW: YES TDS: PORTABLE: DEFINITY: BUBBLE STUDY: DIAGNOSIS: ANASARA CARDIAC HISTORY: CATHERIZATION: SURGERY: PROSTHETIC VALVE: PACEMAKER: MEASUREMENTS (cm) DIASTOLIC (NORMALS) SYSTOLIC (NORMALS) IVSd 1.2 (0.6-1.2) LA Diam 3.8 (1.9-4.0) LVEF 61% LVIDd 4.3 (3.5-5.7) LVIDs 2.9 (2.0-3.5) %FS 32% LVPWd 1.3 (0.6-1.2) Ao Diam (2.0-3.7) 2 DIMENSIONAL ASSESSMENT: RIGHT ATRIUM: NORMAL LEFT ATRIUM: NORMAL RIGHT VENTRICLE: NORMAL LEFT VENTRICLE: NORMAL TRICUSPID VALVE: NORMAL MITRAL VALVE: NORMAL PULMONIC VALVE: NORMAL AORTIC VALVE: NORMAL PERICARDIAL EFFUSION: NONE AORTIC ROOT: NORMAL LEFT VENTRICULAR WALL MOTION: NORMAL DOPPLER/COLOR FLOW: MILD TRICUSPID REGURGITATION COMMENTS: MILD TRICUSPID REGURGITATION. NORMAL LEFT VENTRICULAR SIZE AND FUNCTION. NO WALL MOTION ABNORMALITY. NO EFFUSION. TECHNOLOGIST: BELL RODGERS
--- NOTE | 2020-10-14 14:50 | PN ---
Date of Progress Note: 10/14/2020 Subjective: The patient was admitted with anasarca, nephrotic-range proteinuria. The patient undergone kidney biopsy yesterday, tolerated the biopsy without any problem. Physical Examination: Vital Signs: Blood pressure 136/74, pulse of 88. The patient had good urine output. Chest: Clear to auscultation. Heart: S1, S2. Regular. Systolic murmur. Abdomen: Soft, nontender. Extremity: Trace edema. Neuro: Alert. No focality. Laboratory Data: H and H 6.7/53.4. Sodium 140, potassium 4.7, bicarb 33, BUN 34, creatinine 1, GFR of 51, calcium 9.1, phosphorus 3.8, albumin 2.5. Serum protein electrophoresis is still pending. Serology and immunology still pending. Hepatitis B and C were negative. Current Medications: Lasix has been discontinued, Tylenol, atorvastatin, losartan 100, spironolactone 100, loperamide, levothyroxine, , cholecalciferol. Assessment And Plan: 1. Chronic kidney disease stage 3, nephrotic-range proteinuria, normal size kidney, status post biopsy, biopsy showed 80% of nephrosclerosis with diabetic change. I had long discussion with the patient the need for close monitoring of her blood pressure and control her diabetes given the finding on the kidney biopsy. The patient verbalized understanding. I am going to continue REGINALDO inhibitor and spironolactone. Lasix has been discontinued as the patient developed hyperkalemia with the Lasix. 2. Hypertension. Continue current treatment. 3. 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 4. Anasarca secondary to nephrotic/hypothyroidism. Continue current treatment. The patient cleared from the renal standpoint for discharge planning. time spend discussing with patient exam the patient face to face , reviewing the data, placing order , discussing with other hat steamer including nursing staff , discussing with Dr Vasquez and other employment consultant 45 min DANDY Voice ID: [id number] Report ID: [id number] MTDCarol Ann
[2020-10-14] MEDS: ATORVASTATIN 80 MG TAB PO SCH (20:22)
[2020-10-14 21:31] VITALS: O2SAT 96
--- NOTE | 2020-10-14 22:08 | P.PN ---
Subjective Date of Service: 10/14/20 Chief Complaint: DIFFUSE EDEMA Subjective: Improving SHE IS WEAK HAS GENERALIZED EDEMA, IS ABLE TO GET OUT OF BED. SHE DENIES ANY CHEST PAIN, OR HEADACHES. SHE IS OFF BIPAP NOW. DOWN TO 1 LT NC. SHE MAY BE ABLE TO GET OFF OXYGEN. SHE IS MENTALLY MUCH MORE CLEAR. 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 BHUPENDRA IS STILL WEAK BUT MARAT TO WALK. HAS OXYGEN AT HOME GIVEN BY [facility]. SHE DOES NOT HAVE COPD OR CHF FOR DIAGNOSIS. PE HAS BEEN RULED OUT. SHE IS ABLE TO WALK AROUND SHE IS WEAK BUT GETTING STRONGER SHE HAS APPROVAL TO REHAB NOW. Review of Systems 10-point ROS is otherwise unremarkable General: Weakness Physical Examination - Vital Signs Temperature: 98.2 F Blood Pressure: 139/74 Pulse: 79 Respirations: 18 Pulse Ox (%): 95 - Physical Exam General: Oriented x3, Mild distress, Obese HEENT: Atraumatic, PERRLA, EOMI Neck: Supple, JVD not distended Respiratory: Clear to auscultation bilaterally, Normal air movement Cardiovascular: Regular rate/rhythm, Normal S1 S2 Gastrointestinal: Normal bowel sounds, No tenderness Musculoskeletal: No tenderness Integumentary: No rashes Neurological: Normal speech, Normal tone, Normal affect Lymphatics: No axilla or inguinal lymphadenopathy - Studies Laboratory Data (last 24 hrs) 10/14/20 05:52: Magnesium 2.5 H 10/14/20 05:52: Sodium 140, Potassium 4.7, BUN 34 H, Creatinine 1.08, Glucose 159 H, Phosphorus 3.8 Medications List Reviewed: Yes Assessment And Plan - Current Problems (Diagnosis) (1) Anasarca Current Visit: Yes Status: Acute Plan: THIS CAN BE FROM NEPHROTIC SYNDROME. I CONSULTED DR. ENGEL TEAM. HER PROTEIN CREAT RATIO IS ABOUT 10. NEPHROLOGY TEAM ON THE CASE. WORKUP SHOWS MORE THAN 8 GM OF PROTEIN LOSS DAILY. THIS SUGGESTS NEPHROTIC SYNDROME. DR. REYEZ SAW PATIENT TODAY. WORKUP OF ETIOLOGY IN PROCESS. SHE IS AN EARLY DIABETIC. CARPIO IN PROCESS DR. REYEZ SAW PATIENT TODAY. BIOPSY FOR KIDNEYS IN AM. BIOPSY DONE TODAY. DC HOME IN AM. NEPH SYNDROME (2) Brainstem hemorrhage Current Visit: Yes Status: Acute Plan: ON CT SCAN SHE HAS BRAIN BLEED THAT IS STABLIZED PER DR. FITZGERALD. THERE IS MILD SHIFT BUT SHE HAS NO SYMPTOMS. I STARTED KEPPRA. DR. FITZGERALD ADVISES CT IN AM AGAIN TO SEE STABILITY. SHE IS ALREADY ON IV LASIX. REPEAT CT TODAY TO SEE THE PROGRESSION. CT DONE SHOW SMALLER SIZE OF HEMORRHAGE. REHAB TODAY OR AM. Qualifiers: Intracerebral hemorrhage etiology: nontraumatic (3) HTN (hypertension) Current Visit: Yes Status: Chronic Plan: STOPPED AMLODIPINE AND LISINOPRIL STARTED LOSARTAN. Qualifiers: Hypertension type: essential hypertension Qualified Code(s): I10 - Essential (primary) hypertension (4) Diabetes Current Visit: Yes Status: Chronic Plan: CHECK A1C LDL Qualifiers: Diabetes mellitus type: type 2 (5) Hypokalemia Current Visit: Yes Status: Acute Plan: STOP LASIX DRIP REPLACE K DR. REYEZ PARCEL POST ORDER CLERK TODAY. WORK UP OF NEPHROTIC SYNDROME IN PROCESS. (6) Hypercarbia Current Visit: Yes Status: Acute Plan: SHE MAY HAVE BASELINE SLEEP APNEA AND THAT MAY HAVE GIVEN RISE TO THIS ISSUE. DIAMOX BIPAP IS ALREADY HELPING . WILL REDUCE FIO2 TO REDUCE PCO2. ALSO HYPOXIA BUT SHE DOES NOT HAVE COPD TO JUSTIFY IT. SOMEHOW FROM [facility] OXYGEN WAS ORDERED. (7) BERNARDINO (obstructive sleep apnea) Current Visit: Yes Status: Chronic Plan: SHE USES CPAP DAILY. AFTER METABOLIC ALKALOSIS INDUCED BY LASIX SHE GOT WORSE BUT NOW GETTING BACK TO NORMAL. REDUCE OXYGEN NEED IF CAN TO IMPROVE HYPOXIC DRIVE.
[2020-10-14 22:09] VITALS: BP 139/74; TEMP 98.2
--- NOTE | 2020-10-15 17:16 | P.DS ---
Admission Date: 10/08/20 Discharge Date: 10/16/20 Disposition: TRANSFER TO INPATIENT REHAB Discharge Condition: FAIR Reason for Admission: DIFFUSE EDEMA - Problems (1) Anasarca Status: Acute (2) HTN (hypertension) Status: Chronic Qualifiers: Hypertension type: essential hypertension Qualified Code(s): I10 - Essential (primary) hypertension (3) Diabetes Status: Chronic Qualifiers: Diabetes mellitus type: type 2 (4) Hypokalemia Status: Acute (5) Hypercarbia Status: Acute (6) BERNARDINO (obstructive sleep apnea) Status: Chronic (7) Nontraumatic intracerebral hemorrhage of basal ganglia Status: Chronic Hospital Course: BHUPENDRA CAME TO OFFICE WITH FACIAL EDEMA. SHE RECENTLY HAD WEAKNESS, CONFUSION AND THEY CALLED ME FROM HOME. I ASKED HER TO BE BROUGHT TO ER. SHE WAS SENT TO [facility] FOUND TO HAVE BASAL GANGLIA HEMORRHAGE AND HYPOXIA. SHE WAS SENT HOME WITH OXYGEN. 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 HER DIABETES HAS NOT BEEN SEVERE EXCEPT FOR LAST A1C. SHE HAS NOT BEEN COMPLIANT FOR VISITS AT OFFICE AND ROUTINE CHECK UP. HER HYERPCAPNEA GOT WORSE WITH IV LASIX DRIP. WE STOPPED IT AFTER GREAT DIURESIS. HER KIDNEY FUNCTION IS GOOD BUT ALBUMIN IS DOWN TO 2.2. THERE IS NOT TREATMENT FOR THIS. IT IS LOSARTAN AND DIURESIS. WE WILL KEEP WITH DIAMOX AND SPIRONOLACTONE AND KEEP HER HCO3 LOW ENOUGH NOT TO AFFECT HER SLEEP APNEA. SHE IS NOT SENT TO REHAB LOCALLY. Vital Signs/Physical Exam: Temp Pulse Resp BP Pulse Ox 98.2 F 79 18 139/74 95 10/14/20 22:08 10/14/20 22:08 10/14/20 22:08 10/14/20 22:08 10/14/20 22:08 Laboratory Data at Discharge: WBC 5.60 K/uL (4.3-10.9) 10/11/20 05:05 Hgb 16.7 g/dL (12.0-15.0) H 10/11/20 05:05 Hct 53.4 % (36.0-45.0) H 10/11/20 05:05 Plt Count 183 K/uL (152-406) 10/11/20 05:05 PT 10.4 SECONDS (9.5-12.5) 10/07/20 21:00 INR 0.91 10/07/20 21:00 APTT 36.8 SECONDS (24.3-36.9) 10/07/20 21:00 Sodium 140 mmol/L (136-145) 10/14/20 05:52 Potassium 4.7 mmol/L (3.5-5.1) 10/14/20 05:52 BUN 34 mg/dL (7-18) H 10/14/20 05:52 Creatinine 1.08 mg/dL (0.55-1.3) 10/14/20 05:52 Glucose 159 mg/dL (74-106) H 10/14/20 05:52 Phosphorus 3.8 mg/dL (2.5-4.9) 10/14/20 05:52 Magnesium 2.5 mg/dL (1.8-2.4) H 10/14/20 05:52 Total Bilirubin 0.4 mg/dL (0.2-1.0) 10/07/20 21:00 AST 19 U/L (15-37) 10/07/20 21:00 ALT 24 U/L (12-78) 10/07/20 21:00 Alkaline Phosphatase 157 U/L (45-117) H 10/07/20 21:00 Triglycerides 157 mg/dL (<150) H 10/09/20 05:50 Cholesterol 210 mg/dL (<200) H 10/09/20 05:50 HDL Cholesterol 73 mg/dL (40-60) H 10/09/20 05:50 Cholesterol/HDL Ratio 2.88 10/09/20 05:50 Home Medications: Albuterol Sulfate [Proair Respiclick] 2 puff IH Q6H PRN 10/08/20 Atorvastatin Calcium [Lipitor] 80 mg PO BEDTIME 10/08/20 Metformin HCl [Glucophage*] 500 mg PO BIDWM 10/08/20 Amlodipine [Norvasc*] 10 mg PO DAILY tab 10/14/20 Cholecalciferol (Vitamin D3) [Vitamin D 5,000 IU Cap*] 5,000 unit PO DAILY cap 10/14/20 Insulin -Regular Human [Novolin -R*] See Protocol SQ ACHS ml 10/14/20 Donald [Donald*] 1 pkt PO BID powd.pack 10/14/20 Losartan Potassium [Cozaar*] 100 mg PO DAILY tablet 10/14/20 Sitagliptin Phosphate [Januvia*] 100 mg PO DAILY tab 10/14/20 Spironolactone [Aldactone*] 100 mg PO DAILY tab 10/14/20 acetaZOLAMIDE [Diamox*] 250 mg PO DAILY tab 10/14/20 levETIRAcetam [Keppra*] 250 mg PO BID tab 10/14/20
[2020-10-17 05:05] LABS: Albumin, (SPE) 2.5 g/dL (3.8-4.8); Alpha-1-Globulins 0.3 g/dL (0.2-0.3); Alpha-2-Globulins 0.8 g/dL (0.5-0.9); INTERPRETATION REPORT
[2020-10-17 15:03] LABS: Beta Globulin 24 HR Urine 13 %; Gamma Globulin, 24hr Urine 9 %; Interpretation: REPORT; Protein/Crea Ratio in g 15128 mg/g creat (<=114); Protein/Crea Ratio in mg 15.128 (<=0.114); Urine Alpha-2-Globulins, 24 Hr 5 %; Urine PEP Abn Protein Band1 REPORT; Urine Total Volume 24 Hours 2050 mL
[2020-10-19 11:17] LABS: ELECTROPHORESIS (U): REPORT
== END 2020-10-14 22:00 | DRG 698 ==
LOC: 2ND 19:11 → OBSVTOIN 10-08 10:57
PROVIDERS: ADMIT Internal Medicine; ATTEND Internal Medicine
PROC: 5A09557 Assistance with Respiratory Ventilation, Greater than 96 Consecutive Hours, Continuous Positive Airway Pressure (ICD-10-PCS; principal; 2020-10-08)
PROC: 0T913ZX Drainage of Left Kidney, Percutaneous Approach, Diagnostic (ICD-10-PCS; 2020-10-13)
DX: E11.22 Type 2 diabetes mellitus with diabetic chronic kidney disease (principal); I61.3 Nontraumatic intracerebral hemorrhage in brain stem; E87.3 Alkalosis; N39.0 Urinary tract infection, site not specified; E87.2 Acidosis; E87.0 Hyperosmolality and hypernatremia; N17.9 Acute kidney failure, unspecified; G47.33 Obstructive sleep apnea (adult) (pediatric); E03.9 Hypothyroidism, unspecified; N18.2 Chronic kidney disease, stage 2 (mild); E83.42 Hypomagnesemia; E87.6 Hypokalemia; E87.70 Fluid overload, unspecified; I10 Essential (primary) hypertension; J45.909 Unspecified asthma, uncomplicated; E88.09 Other disorders of plasma-protein metabolism, not elsewhere classified; R06.89 Other abnormalities of breathing; R31.9 Hematuria, unspecified; Z79.899 Other long term (current) drug therapy; Z86.73 Personal history of transient ischemic attack (TIA), and cerebral infarction without residual deficits; Z98.84 Bariatric surgery status; Z91.19 Patient's noncompliance with other medical treatment and regimen; Z79.4 Long term (current) use of insulin; Z20.822 Contact with and (suspected) exposure to COVID-19
CPT/HCPCS: 36415; 70450; 71045; 71275; 80048; 80061; 80069; 80074; 80076; 81003; 81015; 82043; 82306; 82550; 82570; 82607; 82652; 82805; 82947; 83036; 83735; 83935; 84100; 84132; 84156; 84165; 84166; 84300; 84439; 84443; 85025; 85610; 85730; 86021; 86038; 86225; 86334; 87086; 87088; 88300; 93306; 93970; 93975; 94660; 94760; 97110; 97112; 97116; 97163; J1940; J2250; J2310; J3010; J3475; J7030; Q9967; U0003

== ENCOUNTER 2020-10-11 14:25 | Inpatient (IN) | payer OTHER, SELFPAY ==
[2020-10-13] MEDS ORDERED: FLUMAZENIL 0.1 MG/ML (5 mL VIAL) IV ONE (10:40)
--- NOTE | 2020-10-14 17:10 | R.PREADM ---
PRE-ADMISSION SCREENING FORM SCREENING DATE AND TIME 10/14/2020 13:58 (CDT) ANTICIPATED REHAB ADMISSION DATE 10/16/2020 REFERRING FACILITY [facility] REFERRAL DATE AND TIME 10/14/2020 13:58 (CDT) REFERRAL ROOM# 205 ACUTE ADMIT DATE 10/14/2020 Previous Rehabilitation(s): No. 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 Brayden Mcleod M.D. MR# [id number] NAME EMMY ISBELL [place] ADDRESS [address] [facility] [id number] DATE OF 1960 AGE 60 SSN# [id number] GENDER female MARITAL STATUS ADMIT FROM 02 - [facility] PRE-HOSPITAL LIVING SETTING 01 - Home (private home/apt. board/care, assisted living, fdc, transitional living) HOME TYPE AND DETAILS Type of home: single family house # of levels in the residence: 1 PRE-HOSPITAL LIVING WITH Alone FAMILY SUPPORT No PRIMARY FAMILY CONTACT NAME Rani Peterson PRIMARY FAMILY CONTACT PHONE PRIMARY FAMILY CONTACT RELATIONSHIP Sister PHONE PRIMARY FAMILY CONTACT ON ADM.? no IS PRIMARY FAMILY CONTACT AUTH. REP.? no 1ST EMERGENCY CONTACT Rani Peterson 1ST CONTACT PHONE 1ST CONTACT RELATIONSHIP Sister PHONE 1ST CONTACT ON ADM. no IS 1ST CONTACT AUTH. REP.? no PHONE 2ND CONTACT ON ADM.? 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 No ANOTHER CONSTITUTION PARTY RESPONSIBLE? No PRIMARY REHAB/ACUTE DIAGNOSIS: Evolving 2 cm intraparenchymal hemorrhage with surrounding edema involving the right basal ganglia, internal capsule, and griffith radiata. The hemorrhage is noted on the report for the CT head dated 09/22/2020, but images are unavailable for review/comparison. REHAB IMPAIRMENT CATEGORY (ACE): 01 Stroke (STR) MEETS 60% rule AFFECTED EXTREMITIES: LLE, and LUE PRIMARY DIAGNOSIS-RELATED SURGERIES: N/A SUMMARY OF ACUTE HOSPITALIZATION: Pt. is a 60 yo Right-handed female. On 10/08/2020 Pt. presented to [facility] with sudden onset of left-side weakness. On 10/08/2020 she was admitted to [facility] with diagnosis Evolving 2 cm intraparenchym al hemorrhage with surrounding edema involving the right basal ganglia, internal capsule, and griffith radiata. The hemorrhage is noted on the report for the CT head dated 09/22/2020, but images are unavailable for review/comparison.. Her impairment category is Stroke 01 - Left Body (Right Brain) (01.1). Pre-morbidly, Pt. was independent/mod-I in Communication, Self-Care, Transfers Control, Safety Awaren ess, and Balance; and she had good Balance and Transfers Control. Currently, she has deficits of Safety Awareness, Sphincter Control, Endurance, Balance, and Social Co gnition. Pt. is now referred to [facility] for acute in-patient rehabilitation in order to maximize patient's functional independence in activities of daily living, strength, ROM, and mobi lity. Patient has realistic goal of being discharged at assistance level 7-Ind to reside at Home with Pt s elf. PAST MEDICAL HISTORY CVA DIABETES MELLITUS PAST SURGICAL HISTORY: GASTRIC BYPASS MEDICATION ALLERGIES: No Known Drug Allergies (NKDA) ENVIRONMENTAL ALLERGIES: - Substance Allergies None Known - Other Allergies None Known CODE STATUS: Full code WEIGHT/HEIGHT/BMI: WEIGHT 176 lbs HEIGHT 5' 2" BMI 32.2 DIET: - Diet Type Regular - Diet - Solid Texture Regular - Diet - Liquid Texture Regular - Tube Feed N/A REVIEW OF SYSTEMS: - Gen Alert and awake Lying in bed No apparent distress Oriented to: person, time, and place - Vital Signs SBP/DBP: 136/74 Pulse: 88 Vital signs stable, afebrile Resp: 18 Temperature: 98.7 F - CVS RRR VITAL SIGNS SBP/DBP: 136/74 Temperature: 98.7 Pulse: 88 Vital signs stable, afebrile Resp: 18 MEDICATIONS/TREATMENT: Other- See attached MAR (Medication Administration Record). CURRENT SPHINCTER CONTROL: Pre-hospital bladder status: unspecified # of bladder accidents in the last 7 days prior to screenin Pre-hospital bowel status: unspecified # of bowel accidents in the last 7 days prior to screenin Last Bowel Movement Date: 10/14/2020 CURRENT LOCOMOTION STATUS: distance walked 500 PLUS feet WITH ROLLING WALKER DETAILED CURRENT FUNCTIONAL STATUS: - Bladder accident frequency: 7-Ind - No accidents in the past 7 days - Bowel accident frequency: 7-Ind - No accidents in the past 7 days - Walking score based on distance walked: 0(N/A) score based on distance walked: 3(>=150ft) - Wheelchair score based on distance traveled: 0(N/A) QI SCORES: - Self-Care A. Eating 06-Independent B. Oral hygiene 03-Partial/moderate assistance C. Toileting hygiene 03-Partial/moderate assistance E. Shower/bathe self 03-Partial/moderate assistance F. Upper body dressing 03-Partial/moderate assistance G. Lower body dressing 03-Partial/moderate assistance H. Putting on/taking off footwear 88-Not attempted due to medical condition or safety concerns - Mobility A. Roll left and right 03-Partial/moderate assistance B. Sit to lying 03-Partial/moderate assistance C. Lying to sitting on side of bed 03-Partial/moderate assistance D. Sit to stand 03-Partial/moderate assistance E. Chair/tss-eb-kfwgu transfer 03-Partial/moderate assistance F. Toilet transfer 03-Partial/moderate assistance G. Car transfer 88-Not attempted due to medical condition or safety concerns I. Walk 10 feet 03-Partial/moderate assistance J. Walk 50 feet with two turns 03-Partial/moderate assistance K. Walk 150 feet 03-Partial/moderate assistance L. Walking 10 feet on uneven surfaces 88-Not attempted due to medical condition or safety concerns M. 1 step (curb) 88-Not attempted due to medical condition or safety concerns N. 4 steps 88-Not attempted due to medical condition or safety concerns O. 12 steps 88-Not attempted due to medical condition or safety concerns P. Picking up object 06-Independent R. Wheel 50 feet with two turns 03-Partial/moderate assistance S. Wheel 150 feet 88-Not attempted due to medical condition or safety concerns - Bladder and Bowel Bladder continence Bowel continence - Endurance Fair - Balance Fair - Safety Awareness Fair CURRENT FUNC. DEFICITS: Mobility, Endurance, Balance, Safety Awareness, and Self-Care CURRENT / PREVIOUS ASSISTIVE DEVICES: Rolling Walker HISTORY OF FALLS. HAS THE PATIENT HAD TWO OR MORE FALLS IN THE PAST YEAR OR ANY FALL WITH INJURY IN T HE PAST YEAR?: No PRIOR SURGERY. DID THE PATIENT HAVE MAJOR SURGERY DURING THE 100 DAYS PRIOR TO ADMISSION?: No THERAPY NOTES FROM ACUTE CARE: Attached. SPECIAL NEEDS: - Safety Concerns Skin breakdown precautions needed due to skin breakdown risk PATIENT NEEDS ACTIVE AND ONGOING THERAPEUTIC INTERVENTION OF MULTIPLE THERAPY DISCIPLINES, INCLUDING: - Occupational Therapy Cognitive Retraining. Visual Perceptual Training. - Dietary and Nutrition Adequate Nutrition. Nutritional Education. Nutritional Supplements. - Speech Therapy Cognitive Training. Expressive Language Skills. Memory Strategies. Receptive Language Skills. Speech Intelligibility Training. PATIENT NEEDS CLOSE MEDICAL SUPERVISION BY A REHABILITATION PHYSICIAN FOR: Coordination of Treatment Team PATIENT REQUIRES 24X7 REHAB NURSING FOR MEDICAL AND FUNCTIONAL MGT. OF THE FOLLOWING DEFICITS: Disease Management Medication Management Patient/Family Education Providing Safe Environment PATIENT REQUIRES INTENSIVE, COORDINATED INTERDISCIPLINARY APPROACH TO REHAB: Arranging Home Equipment/Services Discharge Planning Family Intervention/Training Improvement Advisor/Case Management PATIENT REHAB POTENTIAL: Danny ISBELL is able and expected to receive 3 hours of individualized therapy daily on at least 5 of ev ken 7 days Danny LARAs prognosis for significant practical improvement within a reasonable period of time appear s Good Expected level of measurable improvement will be of a practical value to Danny ISBELL's functional capac ity or adaptations to impairments Has a viable Discharge Plan Medically appropriate; condition is sufficiently stable to participate in intensive rehab program DISCHARGE PLAN: - Estimated Length of Stay (days) 17. - Consensus on plan Discharge plan has been discussed with primary caregiver. Patient/Family is in agreement with the nubia n. Primary caregiver is in agreement with the plan. - Patient/Family Goals Return home independently. - Planned Living Setting Upon Discharge Home, to live alone. Transitional Living. Primary caregiver: Pt self. RECOMMENDED CARE LEVEL: IRF RECOMMENDATION DETAILS: Recommended Admission to Comprehensive Rehabilitation Program to Increase Functional [place] SCREENER'S COMPLETENESS CONFIRMATION: - Screening Confirmation The patient data collection on this preadmission screening form is finished PHYSICIANS REVIEW AND ADMISSION DETERMINATION Admit - Based on my review of the Pre-Admission Screening results, in my medical judgment and experie nce, I concur with the findings and recommend admission to [facility], as this patient requires an IRF level of care. SIGNATURE PANEL: Board Catcher - [electronically] signed by Aj Hernandez on 10/14/2020 at 14:31 (CDT) Board Catcher - [electronically] signed by Aj Hernandez on 10/14/2020 at 14:30 (CDT) Board Catcher - [electronically] signed by Hernando Quintanilla PT on 10/14/2020 at 14:37 (CDT) Physician Reviewer - [electronically] signed by Dr. Brayden Mcleod M.D. on 10/14/2020 at 17:09 (CDT )
--- OUTSIDE RECORDS SUMMARY | 2020-10-14 23:01 | XMS REPORT | Continuity of Care Document ---
:1960 Author Organization [facility] t Address [address] [place] [address] Dr. Sales [address] [place] [id number] Care Team Providers Name Role Phone Unavailable Unavailable Unavailable Problems This patient has no known problems. Allergies, Adverse Reactions, Alerts This patient has no known allergies or adverse reactions. Medications This patient has no known medications. Procedures This patient has no known procedures. Results This patient has no known results.
[2020-10-15 01:01] LABS: Urine Appearance CLOUDY (Clear); Urine Bilirubin NEGATIVE (Negative); Urine Blood TRACE (Negative); Urine Color YELLOW (Yellow); Urine Glucose NEGATIVE (Negative); Urine Protein 2+ (Negative); Urine Specific Gravity 1.015 (1.005-1.030); Urine Urobilinogen 0.2 mg/dL (0.2-1.0)
[2020-10-15 01:28] LABS: Urine Bacteria >50 /HPF (<20)
[2020-10-15 01:29] LABS: Urine Mucus 2+ /HPF (NONE SEEN)
[2020-10-15] MEDS ORDERED: GLUCAGON 1 MG/VIAL IM PRN (03:13)
[2020-10-15] MEDS ORDERED: D50W 25 GM/50 ML SYRINGE IV PRN (03:13)
[2020-10-15 06:06] LABS: Absolute Lymphocytes (CBC) 1.2 K/uL (0.7-4.9); Basophils % 1.3 % (0-1.3); Lymphocytes % 18.4 % (15.3-44.8); MPV 9.9 fL (7.6-11.3); RBC Red Blood Cell Count 5.47 M/uL (3.86-4.86)
[2020-10-15 06:54] LABS: Albumin 2.5 g/dL (3.4-5.0); Magnesium 2.3 mg/dL (1.8-2.4); Potassium 4.8 mmol/L (3.5-5.1); Prealbumin 23.3 mg/dL (20-40)
[2020-10-15] MEDS: INSULIN -REGULAR HUMAN 50 UNIT/0.5 ML ML SQ SCH ×4 (07:30→21:16)
[2020-10-15] MEDS: LOSARTAN POTASSIUM 50 MG TABLET PO SCH (08:59)
[2020-10-15] MEDS: acetaZOLAMIDE 250 MG TAB PO SCH (09:00)
[2020-10-15] MEDS: levETIRAcetam 500 MG TAB PO SCH ×2 (09:00→20:16)
[2020-10-15] MEDS: VITAMIN D 5,000 UNIT CAP PO SCH (09:00)
[2020-10-15] MEDS: AMLODIPINE 10 MG TAB PO SCH (09:00)
[2020-10-15] MEDS: SITAGLIPTIN PHOS 100 MG TAB PO SCH (09:00)
[2020-10-15] MEDS: METFORMIN HCL 500 MG TAB PO SCH ×2 (09:01→16:55)
[2020-10-15] MEDS: SPIRONOLACTONE 100 MG TAB PO SCH (09:02)
--- NOTE | 2020-10-15 10:06 | P.RH.PN ---
Estimated Length of Stay: 10 Expected Discharge Date: 10/23/20 Discharge Disposition Plan: Home Family Support: Yes Alf Goal: Mobility, Transfers, Self Care Vital Signs: Last Vital Signs Temp 97.2 F 10/15/20 07:10 Pulse 85 10/15/20 09:02 Resp 18 10/15/20 07:10 BP 124/72 10/15/20 09:02 Pulse Ox 92 10/15/20 07:10 Laboratory: Laboratory Last Values WBC 6.60 K/uL (4.3-10.9) D 10/15/20 05:45 RBC 5.47 M/uL (3.86-4.86) H 10/15/20 05:45 Hgb 15.7 g/dL (12.0-15.0) H 10/15/20 05:45 Hct 50.0 % (36.0-45.0) H 10/15/20 05:45 MCV 91.4 fL (80-100) 10/15/20 05:45 MCH 28.7 pg (27.0-35.0) 10/15/20 05:45 MCHC 31.4 g/dL (32.0-36.0) L 10/15/20 05:45 RDW 16.0 % (12.1-15.2) H 10/15/20 05:45 Plt Count 182 K/uL (152-406) 10/15/20 05:45 MPV 9.9 fL (7.6-11.3) 10/15/20 05:45 Neutrophils % 59.0 % (41.7-73.7) 10/15/20 05:45 Lymphocytes % 18.4 % (15.3-44.8) 10/15/20 05:45 Monocytes % 8.3 % (3.3-12.3) 10/15/20 05:45 Eosinophils % 13.0 % (0-4.4) H 10/15/20 05:45 Basophils % 1.3 % (0-1.3) 10/15/20 05:45 Absolute Neutrophils 3.9 K/uL (1.8-8.0) 10/15/20 05:45 Absolute Lymphocytes 1.2 K/uL (0.7-4.9) 10/15/20 05:45 Absolute Monocytes 0.5 K/uL (0.1-1.3) 10/15/20 05:45 Absolute Eosinophils 0.8 K/uL (0-0.5) H 10/15/20 05:45 Absolute Basophils 0.1 K/uL (0-0.5) 10/15/20 05:45 Sodium 140 mmol/L (136-145) 10/15/20 05:45 Potassium 4.8 mmol/L (3.5-5.1) 10/15/20 05:45 Chloride 108 mmol/L (98-107) H 10/15/20 05:45 Carbon Dioxide 31 mmol/L (21-32) 10/15/20 05:45 BUN 30 mg/dL (7-18) H 10/15/20 05:45 Creatinine 0.95 mg/dL (0.55-1.3) 10/15/20 05:45 Estimated GFR 60 mL/min (=/>90) L 10/15/20 05:45 Glucose 129 mg/dL (74-106) H 10/15/20 05:45 POC Glucose 141 mg/dL (65-120) H 10/15/20 07:08 Calcium 9.4 mg/dL (8.5-10.1) 10/15/20 05:45 Magnesium 2.3 mg/dL (1.8-2.4) 10/15/20 05:45 Albumin 2.5 g/dL (3.4-5.0) L 10/15/20 05:45 Prealbumin 23.3 mg/dL (20-40) 10/15/20 05:45 Urine Color Yellow (Yellow) 10/15/20 00:20 Urine Appearance Cloudy (Clear) 10/15/20 00:20 Urine pH 8.0 (5.0-7.0) H 10/15/20 00:20 Ur Specific [place] 1.015 (1.005-1.030) 10/15/20 00:20 Glucose (UA)(Auto) Negative (Negative) 10/15/20 00:20 Urine Ketones Negative (Negative) 10/15/20 00:20 Urine Blood Trace (Negative) H 10/15/20 00:20 Urine Nitrite Negative (Negative) 10/15/20 00:20 Urine Bilirubin Negative (Negative) 10/15/20 00:20 Urine Urobilinogen 0.2 mg/dL (0.2-1.0) 10/15/20 00:20 Ur Leukocyte Esterase 2+ (Negative) H 10/15/20 00:20 Urine RBC 5-10 /HPF (NONE SEEN) H 10/15/20 00:20 Urine WBC 20-50 /HPF (<5) H 10/15/20 00:20 Ur Squamous Epith Cells 10-20 /HPF (NONE SEEN) H 10/15/20 00:20 Urine Bacteria >50 /HPF (<20) H 10/15/20 00:20 Urine Mucus 2+ /HPF (NONE SEEN) 10/15/20 00:20 Urine Culture Reflexed Not needed 10/15/20 00:20 Urine Total Protein 2+ (Negative) H 10/15/20 00:20 SARS-CoV-2 RNA (RT-PCR) Negative (NEGATIVE) 10/15/20 06:40 Wound Present: No Closed Surgical Incision Present: No Negative Pressure Wound Therapy Present: No Physician Update: Labs were reviewed and are stable. She is making fair overall progress with physical and occupational therapy. She walked 500' with quad cane and 500' without an assistive device. Summary: Patient's care plan and photoengraving retoucher goals have been reviewed and revised as necessary. Please see the Rehabilitation Signature page for all necessary signatures.
[2020-10-15] MEDS: JUVEN PACKET PO SCH ×2 (10:08→20:15)
[2020-10-15] MEDS ORDERED: D50W 25 GM/50 ML VIAL IV PRN (15:00)
--- NOTE | 2020-10-15 18:39 | R.HP ---
HISTORY AND PHYSICAL FACILITY: [facility] ENCOUNTER DATE AND TIME: 10/15/2020 18:33 (CDT) MR#: [id number] NAME EMMY ISBELL ADDRESS: [address] [place] [address]: [place] [id number] PHONE: DATE OF : 1960 AGE: 60 SSN# [id number] GENDER: Female MARITAL STATUS PRE-HOSPITAL LIVING SETTING 01 - Home (private home/apt. board/care, assisted living, prison, transitional living) PRE-HOSPITAL LIVING WITH Alone ENCOUNTER PHYSICIAN: Dr. Brayden Mcleod M.D. REFERRING DOCTOR: fletcher Carranza DATE OF ADMISSION: 10/14/2020 22:41 (CDT) REFERRING FACILITY [facility] HOME TYPE AND DETAILS: Type of home: single family house # of levels in the residence: 1 PRIMARY DIAGNOSIS-RELATED SURGERIES: N/A HISTORY OF PRESENT ILLNESS (HPI): Pt. is a 60 yo Right-handed female. On 10/08/2020 Pt. presented to [facility] with sudden onset of left-side weakness. On 10/08/2020 she was admitted to [facility] with diagnosis Evolving 2 cm intraparenchym al hemorrhage with surrounding edema involving the right basal ganglia, internal capsule, and griffith radiata. The hemorrhage is noted on the report for the CT head dated 09/22/2020, but images are unavailable for review/comparison.. Her impairment category is Stroke 01 - Left Body (Right Brain) (01.1). Pre-morbidly, Pt. was independent/mod-I in Communication, Self-Care, Transfers Control, Safety Awaren ess, and Balance; and she had good Balance and Transfers Control. Currently, she has deficits of Safety Awareness, Sphincter Control, Endurance, Balance, and Social Co gnition. Pt. is now referred to [facility] for acute in-patient rehabilitation in order to maximize patient's functional independence in activities of daily living, strength, ROM, and mobi lity. Patient has realistic goal of being discharged at assistance level 7-Ind to reside at Home with Pt s elf. MEDICATION ALLERGIES: No Known Drug Allergies (NKDA) ENVIRONMENTAL ALLERGIES: - Substance Allergies None Known - Other Allergies None Known PAST MEDICAL HISTORY: CVA DIABETES MELLITUS PAST SURGICAL HISTORY: GASTRIC BYPASS SOCIAL HISTORY: - Home Living Alone REVIEW OF SYSTEMS: - Gen No Chills Fatigue No Fever - Eyes No Double Vision No itchiness - ENMT No Difficulty Swallowing - CVS No Chest Discomfort No Chest Pain Fatigue No Weight Gain - Resp No Cough No Shortness of Breath - GI Continent No Abdominal Pain No Constipation No Diarrhea - Continent No Kidney Pain No Painful Urination No Urinary Urgency - MSK No Joint Pain Muscle Cramps Stiffness - Skin No Itching No Rash No Suspicious Lesions - Neuro Coordination Difficulty No Difficulty with Concentration No Memory Loss No Seizures Weakness - Psych No Anxiety No Depression No HIV Exposure No Persistent Infections No Seasonal Allergies - Endo No Cold/Heat Intolerance No Excessive Hunger No Excessive Thirst No Excessive Urination PHYSICAL EXAM - Gen Alert and awake Lying in bed No apparent distress Oriented to: person, time, and place - Skin No breakdown No numbness - Eyes No abnormalities - ENMT No abnormalities - Neck No abnormalities - CVS RRR - Chest No abnormalities - Resp Clear to auscultation - Abd + bowel sounds - GI Soft Deferred - No abnormalities - Ext No significant edema. - MSK 4+/5 weakness in both lower and upper extremities. - Neuro 4/5 strength left upper and lower extremities. - Psych No abnormalities VITAL SIGNS SBP/DBP: 124/72 Temperature: 97.2 Pulse: 85 Resp: 16 NURSING: - Shower allowing shower - Bladder care per protocol - Skin care per protocol PRECAUTIONS: - Weight Bearing Precaution WBAT left LE ACTIVITIES OOB only with supervision QI SCORES: - Self-Care A. Eating 06-Independent B. Oral hygiene 03-Partial/moderate assistance C. Toileting hygiene 03-Partial/moderate assistance E. Shower/bathe self 03-Partial/moderate assistance F. Upper body dressing 03-Partial/moderate assistance G. Lower body dressing 03-Partial/moderate assistance H. Putting on/taking off footwear 88-Not attempted due to medical condition or safety concerns - Mobility A. Roll left and right 03-Partial/moderate assistance B. Sit to lying 03-Partial/moderate assistance C. Lying to sitting on side of bed 03-Partial/moderate assistance D. Sit to stand 03-Partial/moderate assistance E. Chair/[id number] transfer 03-Partial/moderate assistance F. Toilet transfer 03-Partial/moderate assistance G. Car transfer 88-Not attempted due to medical condition or safety concerns I. Walk 10 feet 03-Partial/moderate assistance J. Walk 50 feet with two turns 03-Partial/moderate assistance K. Walk 150 feet 03-Partial/moderate assistance L. Walking 10 feet on uneven surfaces 88-Not attempted due to medical condition or safety concerns M. 1 step (curb) 88-Not attempted due to medical condition or safety concerns N. 4 steps 88-Not attempted due to medical condition or safety concerns O. 12 steps 88-Not attempted due to medical condition or safety concerns P. Picking up object 06-Independent R. Wheel 50 feet with two turns 03-Partial/moderate assistance S. Wheel 150 feet 88-Not attempted due to medical condition or safety concerns - Bladder and Bowel Bladder continence Bowel continence - Endurance Fair - Balance Fair - Safety Awareness Fair CURRENT FUNC. DEFICITS: Mobility, Endurance, Balance, Safety Awareness, and Self-Care MEDICATIONS: - Other See attached MAR (Medication Administration Record) ASSESSMENT: Pt. is a 60 yo Right-handed female.On 10/08/2020 Pt. presented to [facility] with sudden onset of left-side weakness.On 10/08/2020 she was admitted to [facility] with diagnosis Evolving 2 cm intraparenchymal hemorrhage with surrounding edema involving the right basal ganglia, internal capsule, and griffith radiata. The hemorrhage is noted on the report for the CT head dated 09/22/2020, but images are unavailable for review/comparison..Her impairment category is Stroke 01 - Left Body (Righ t Brain) (01.1).Pre-morbidly, Pt. was independent/mod-I in Communication, Self-Care, Transfers Contro l, Safety Awareness, and Balance; and she had good Balance and Transfers Control.Currently, she has d eficits of Safety Awareness, Sphincter Control, Endurance, Balance, and Social Cognition.Pt. is now r eferred to [facility] for acute in-patient rehabilitation in order to maximize patient's functional independence in activities of daily living, strength, ROM, and mobility.- Rehab Goal Patient has realistic goal of being discharged at assistance level 7-Ind to reside at Home with Pt s elf. REHAB PLAN: for Dementia, TBI, Stroke, or others - Physical Therapy Gait dysfunction - to improve, our physical therapists will perform initial evaluation of pt's status upon admission and devise an individualized program for Gait Training, and Wheel Chair mobility Need for home safety evaluation - to improve, our physical therapists will perform initial evaluation of pt's status upon admission and devise an individualized program for Home Evaluation Need in caregiver upon discharge - to improve, our physical therapists will perform initial evaluatio n of pt's status upon admission and devise an individualized program for Caregiver Training New precaution - to improve, our physical therapists will perform initial evaluation of pt's status u demetrius admission and devise an individualized program for Patient precaution education Edema - to improve, our physical therapists will perform initial evaluation of pt's status upon admi ssion and devise an individualized program for Elevation Training, and Lymphedema Therapy Poor balance - to improve, our physical therapists will perform initial evaluation of pt's status upo n admission and devise an individualized program for Balance Training Poor endurance - to improve, our physical therapists will perform initial evaluation of pt's status u demetrius admission and devise an individualized program for Endurance Training Weakness - to improve, our physical therapists will perform initial evaluation of pt's status upon ad mission and devise an individualized program for Aquatic Therapy, Neuromuscular Reeducation, and Stre ngthening Achieving independence - to improve, our physical therapists will perform initial evaluation of pt's status upon admission and devise an individualized program for Community Reintegration Activities - Occupational Therapy Cognitive deficits - to improve, our occupation therapists will perform initial evaluation of pt's st atus upon admission and devise an individualized program for Cognition - orientation Need for healthcare administration internship - to improve, our occupation therapists will perform initial evaluation of pt's s tatus upon admission and devise an individualized program for Caregiver Training Weakness - to improve, our occupation therapists will perform initial evaluation of pt's status upon admission and devise an individualized program for Aquatic Therapy, Balance, Endurance, UE ROM, and U E strengthening MEDICAL PLAN: - Diet Type Start Regular - Diet - Liquid Texture Start Regular - Tube Feed Start N/A - Bladder care per protocol - Weight Bearing Precaution WBAT left LE - Skin care per protocol - Other See attached MAR (Medication Administration Record) - Diet - Solid Texture Regular - Shower shower DISCHARGE PLAN: - Estimated Length of Stay (days) 17. - Consensus on plan Discharge plan has been discussed with primary caregiver. Patient/Family is in agreement with the nubia n. Primary caregiver is in agreement with the plan. - Patient/Family Goals Return home independently. - Planned Living Setting Upon Discharge Home, to live alone. Transitional Living. Primary caregiver: Pt self. SIGNATURE PANEL: (CDT)
--- NOTE | 2020-10-15 18:40 | PAPE ---
POST ADMISSION PHYSICIAN EVALUATION PATIENT: [facility] MR# [id number] REFERRING DOCTOR fletcher Carranza EVALUATION DATE AND TIME 10/15/2020 18:38 (CDT) NAME EMMY ISBELL DATE OF 1960 AGE 60 PHONE N# [id number] GENDER female EVALUATING PHYSICIAN Dr. Brayden Mcleod M.D. ADMISSION DIAGNOSIS: Evolving 2 cm intraparenchymal hemorrhage with surrounding edema involving the right basal ganglia, internal capsule, and griffith radiata. The hemorrhage is noted on the report for the CT head dated 09/22/2020, but images are unavailable for review/comparison. POST-ADMISSION FUNCTIONAL/MEDICAL STATUS: - Bladder Same accident frequency: 7-Ind - No accidents in the past 7 days - Bowel Same accident frequency: 7-Ind - No accidents in the past 7 days - Walking Same score based on distance walked: 0(N/A) Same score based on distance walked: 3(>=150ft) - Wheelchair Same score based on distance traveled: 0(N/A) STATUS CHANGE EVALUATION: No change in Functional or Medical Status is identified compared with Pre-Admission screening. PATIENT NEEDS CLOSE MEDICAL SUPERVISION BY A REHABILITATION PHYSICIAN FOR: Coordination of Treatment Team PATIENT REQUIRES 24X7 REHAB NURSING FOR MEDICAL AND FUNCTIONAL MGT. OF THE FOLLOWING DEFICITS: Disease Management Medication Management Patient/Family Education Providing Safe Environment PATIENT REQUIRES INTENSIVE, COORDINATED INTERDISCIPLINARY APPROACH TO REHAB: Arranging Home Equipment/Services Discharge Planning Family Intervention/Training Vamp Seamer/Case Management LIST OF IDENTIFIED AND POTENTIAL PROBLEMS: Alteration in leisure activities Bladder, Incontinence Bowel, Incontinence Infection, Actual or Potential Mobility Impaired Pain, Alteration in Comfort Self Care Deficit Skin Integrity, Actual or Potential Urinary Tract Infection (UTI), Actual or Potential PATIENT COULD BE AT RISK FOR COMPLICATIONS FROM ADVERSE MEDICAL CONDITIONS DUE TO HIS/HER COMORBIDITI ES AND THE RIGORS OF THE INTENSIVE REHABILLITATION PROGRAM. METHODS OR INTERVENTIONS TO AVOID COMPLIC ATIONS INCLUDE: - Bleeding Stroke patients assessed for lethargy or change in status. - Infection Clinical staff to assess and manage the signs and symptoms of infection including fever, redness, war mth, etc. - Urinary Tract Infection - Aspiration Clinical staff will assess and manage coughing, drooling, congestion. - Falls Patient will be evaluated for Fall Precautions and will be placed on Fall Precautions as indicated pe r protocol. - Skin Breakdown Nursing will assess skin daily using assessment tool and will place on Skin Breakdown Precautions as indicated per protocol. - Pain Clinical staff may employ non-medication methods such as massage, distraction, decrease stimulus, etc . as needed. Clinical staff will assess patient's pain level every shift per protocol to assess and e nsure pain management effectiveness. Medications will be given and the pain level re-assessed. PRELIMINARY PLAN OF CARE: - Physical Therapy Patient needs Physical Therapy for a daily minimum of 1.5 hours at least 5 out of 7 days, to improve: Mobility, Strengthening, Transfers, Stretching, ROM, Endurance, Ability to manage stairs, Gait, and Balance. - Speech Therapy Patient needs Speech Therapy for a daily minimum of 0.5 hours at least 5 out of 7 days, to improve: S wallowing, Cognition, Language Skills, and Compensatory Strategies. - Rehabilitation Nursing Patient requires 24x7 Rehabilitation Nursing for: Pain Issues, Identifying and preventing risk factor s, Monitoring and reporting current medical conditions, Assisting with ambulation and transfer, Reg ting with all ADL-s, Teaching patients about disease process and medications, Family teaching, Provid ing safe environment, Bowel and Bladder Issues, Skin Integrity, and Medication Management. Patient needs Vamp Seamer and/or Case Management for: Discharge Planning, Arranging Home Equipmen t or Services, and Family Interventions. - Dietary and Nutrition Services Patient needs Dietary and Nutrition Services for: Adequate Nutrition, Nutritional Supplements, and Nu tritional Education. - Occupational Therapy Patient needs Occupational Therapy for a daily minimum of 1.5 hours at least 5 out of 7 days, to impr ove Activities of Daily Living, including: Eating, Grooming, Bathing, Dressing, Toileting, Toilet Tra nsfers, Community Reintegration, Higher functional activities, Adaptive Equipment, Splinting, Househo ld Tasks, and Other activities as determined. QI SCORES: - Self-Care A. Eating 06-Independent B. Oral hygiene 03-Partial/moderate assistance C. Toileting hygiene 03-Partial/moderate assistance E. Shower/bathe self 03-Partial/moderate assistance F. Upper body dressing 03-Partial/moderate assistance G. Lower body dressing 03-Partial/moderate assistance H. Putting on/taking off footwear 88-Not attempted due to medical condition or safety concerns - Mobility A. Roll left and right 03-Partial/moderate assistance B. Sit to lying 03-Partial/moderate assistance C. Lying to sitting on side of bed 03-Partial/moderate assistance D. Sit to stand 03-Partial/moderate assistance E. Chair/woe-ka-jldat transfer 03-Partial/moderate assistance F. Toilet transfer 03-Partial/moderate assistance G. Car transfer 88-Not attempted due to medical condition or safety concerns I. Walk 10 feet 03-Partial/moderate assistance J. Walk 50 feet with two turns 03-Partial/moderate assistance K. Walk 150 feet 03-Partial/moderate assistance L. Walking 10 feet on uneven surfaces 88-Not attempted due to medical condition or safety concerns M. 1 step (curb) 88-Not attempted due to medical condition or safety concerns N. 4 steps 88-Not attempted due to medical condition or safety concerns O. 12 steps 88-Not attempted due to medical condition or safety concerns P. Picking up object 06-Independent R. Wheel 50 feet with two turns 03-Partial/moderate assistance S. Wheel 150 feet 88-Not attempted due to medical condition or safety concerns - Bladder and Bowel Bladder continence Bowel continence - Endurance Fair - Balance Fair - Safety Awareness Fair POTENTIAL FUNCTIONAL GOALS FOR PATIENT TO ACHIEVE BY DISCHARGE: - Safety Precaution Patient will remain free from falls or injury at time of discharge. - Bed Mobility Patient will perform bed mobility at 4-Ruby level of assistance. - Transfers Patient will complete transfers from bed to chair at 4-Ruby level of assistance. - Mobility Patient will ambulate 150 ft with 4-Ruby level of assistance with RW. PATIENT REHAB POTENTIAL Danny ISBELL is able and expected to receive 3 hours of individualized therapy daily on at least 5 of ev ken 7 days Danny ISBELL's prognosis for significant practical improvement within a reasonable period of time appear s Good Expected level of measurable improvement will be of a practical value to Danny ISBELL's functional capac ity or adaptations to impairments Has a viable Discharge Plan Medically appropriate; condition is sufficiently stable to participate in intensive rehab program DISCHARGE PLAN: - Estimated Length of Stay (days) 17. - Consensus on plan Discharge plan has been discussed with primary caregiver. Patient/Family is in agreement with the nubia n. Primary caregiver is in agreement with the plan. - Patient/Family Goals Return home independently. - Planned Living Setting Upon Discharge Home, to live alone. Transitional Living. Primary caregiver: Pt self. CONCLUSION ON REHABILITATION NECESSITY: I have evaluated patient's pre-admission functional status and, comparing it to the patient's post-ad mission functional status now, I conclude that the pre-admission assessment was accurate. Patient's c ondition on admission supports the medical necessity of admission to IRF. It is safe to proceed with patient's therapy program. SIGNATURE PANEL: (CDT)
[2020-10-15] MEDS: ATORVASTATIN 80 MG TAB PO SCH (20:16)
[2020-10-16] MEDS: INSULIN -REGULAR HUMAN 50 UNIT/0.5 ML ML SQ SCH ×4 (07:20→19:55)
[2020-10-16] MEDS: LOSARTAN POTASSIUM 50 MG TABLET PO SCH ×2 (08:00→11:49)
--- NOTE | 2020-10-16 08:10 | P.PN ---
Subjective Date of Service: 10/16/20 Primary Care Provider: Dr. Vasquez(I am covering for him) Chief Complaint: Rehab Physical Examination - Vital Signs Temperature: 97.2 F Blood Pressure: 116/82 Pulse: 94 Respirations: 18 Pulse Ox (%): 91 Assessment & Plan Discharge Plan: Home Plan to discharge in: Greater than 2 days Physician Review Additional Text: Physical Exam: GENERAL: [The patient is a well-developed, well-nourished, in no apparent distress. Alert and oriented x3.] VITAL SIGNS: [Reviewed] blood pressure well controlled. HEENT: Neck supple. LUNGS: The breath sounds noted. HEART: [Regular rate and rhythm, no appreciable gallops, rubs, murmurs or extra heart sounds] ABDOMEN: [Soft, nontender, and nondistended. Positive bowel sounds. No hepatosplenomegaly was noted.] EXTREMITIES: 1+ pitting edema to the lower extremities noted. NEUROLOGIC: [The patient is oriented to person, place and time. Strength and sensation are grossly intact. Face is symmetric.] SKIN: [Normal color, turgor and temperature. 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 Patient remains on Norvasc 10 mg daily, losartan 100 mg daily, Aldactone 100 mg daily, Keppra 250 mg 1 pill twice daily, Lipitor 80 mg daily, Diamox 250 mg daily, Metformin 500 mg 1 pill twice daily, Januvia 100 mg daily, and albuterol as needed. Continue with inpatient rehab. Recommend to hold blood pressure medication if less than 110 systolic. Recommend 1500 cc per day fluid restriction. Continue monitor the patient closely. Patient doing well this time. Patient has obstructive sleep apnea continue CPAP at night. Expected date of discharge 10/23/2020. Code Status: [Full Code] DVT prophylaxis: none due to recent hemorrhagic CVA Advanced Care Planning-30 minutes: Patient currently in rehab. The plan is to continue rehab. Likely discharge 10/23/2020 Time Spent Managing Pts Care (In Minutes): 55
[2020-10-16] MEDS: METFORMIN HCL 500 MG TAB PO SCH ×2 (09:23→17:08)
[2020-10-16] MEDS: levETIRAcetam 500 MG TAB PO SCH ×2 (09:24→20:45)
[2020-10-16] MEDS: SITAGLIPTIN PHOS 100 MG TAB PO SCH (09:24)
[2020-10-16] MEDS: VITAMIN D 5,000 UNIT CAP PO SCH (09:24)
[2020-10-16] MEDS: acetaZOLAMIDE 250 MG TAB PO SCH (09:24)
[2020-10-16] MEDS: JUVEN PACKET PO SCH ×2 (09:25→20:00)
[2020-10-16] MEDS: AMLODIPINE 10 MG TAB PO SCH (09:31)
[2020-10-16] MEDS: SPIRONOLACTONE 100 MG TAB PO SCH (11:49)
[2020-10-16] MEDS ORDERED: LOSARTAN POTASSIUM 50 MG TABLET PO SCH (13:35)
[2020-10-16] MEDS ORDERED: AMLODIPINE 10 MG TAB PO SCH (13:36)
--- NOTE | 2020-10-16 17:55 | CON ---
Date of Consultation: 10/16/2020 Consulting Physician: Brayden Mcleod MD. Reason For Consultation: Nephrotic range of proteinuria, fluid management. 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 The patient was in her regular state of health. The patient was admitted to the hospital with CVA, intracranial hemorrhage. Workup showed nephrotic range proteinuria. Proceed with biopsy. Serology was negative. Allergies: NO KNOWN DRUG ALLERGIES. Home Medications: Include amlodipine, lisinopril, atorvastatin, and metformin. Past Surgical History: Include gastric bypass. Past Medical History: Include: 1. CVA. 2. Hypertension. 3. Hyperlipidemia. 4. Diabetes complicated with neuropathy and nephropathy. 5. 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 Social History: Denies smoking, denies drinking, denies drugs abuse. Review of Systems: Head and Neck: No red eye. No ear pain. GI: No nausea, no vomiting. : No polyuria, no dysuria, no hematuria. 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 Respiratory: Has shortness of breath. Cardiovascular: Has leg edema. Endocrine: No polydipsia. Skin: No rash. Neuro: Has neuropathy. Musculoskeletal: Generalized weakness. Physical Examination: Vital Signs: When I saw the patient, blood pressure 103/65, pulse of 80. Chest: Crackles bilateral base. Heart: S1, S2. Systolic murmur. Abdomen: Soft, nontender. Extremities: Trace edema. Neuro: Alert. No focality. Laboratory Data: WBC 6.6, H and H 15.7/50. Sodium of 140, potassium 4.8, bicarb 31, BUN 30, creatinine 0.9, GFR of 90, calcium 9.4. Current Medications: The patient on include spironolactone, acetazolamide 250 daily, metformin 500, sitagliptin 100. Assessment And Plan: 1. 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 I am going to go ahead and continue current treatment. We will resume losartan and spironolactone. 2. 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 Resume losartan and spironolactone. 3. Hypertension. Currently blood pressure on the lower side. Continue current treatment. We will decrease amlodipine to 5 mg to avoid any hypotension, but continue on the spironolactone and losartan. 4. Diabetes as by primary. Discuss with Dr. Vasquez about the option of Farxiga. We will consider it as outpatient. 5. Hyperkalemia, resolved. Thank you, Dr. Mcleod for allowing us to participate in the care of your patient. time spend discussing with patient exam the patient face to face , reviewing the data, placing order , discussing with other team primary care physician including nursing staff , discussing with hospitalist and other sap pp consultant 65 min DANDY Voice ID: [id number] Report ID: [id number] MTDD
[2020-10-16] MEDS: ATORVASTATIN 80 MG TAB PO SCH (20:45)
[2020-10-17 06:34] LABS: Albumin 2.5 g/dL (3.4-5.0); Potassium 4.3 mmol/L (3.5-5.1)
[2020-10-17] MEDS: INSULIN -REGULAR HUMAN 50 UNIT/0.5 ML ML SQ SCH ×4 (07:30→20:48)
[2020-10-17] MEDS: VITAMIN D 5,000 UNIT CAP PO SCH (08:29)
[2020-10-17] MEDS: AMLODIPINE 5 MG TAB PO SCH (08:29)
[2020-10-17] MEDS: SITAGLIPTIN PHOS 100 MG TAB PO SCH (08:29)
[2020-10-17] MEDS: acetaZOLAMIDE 250 MG TAB PO SCH (08:30)
[2020-10-17] MEDS: METFORMIN HCL 500 MG TAB PO SCH ×2 (08:30→17:02)
[2020-10-17] MEDS: SPIRONOLACTONE 100 MG TAB PO SCH ×2 (08:30→13:53)
[2020-10-17] MEDS: JUVEN PACKET PO SCH ×2 (08:30→19:09)
[2020-10-17] MEDS: levETIRAcetam 500 MG TAB PO SCH ×2 (08:31→19:07)
--- NOTE | 2020-10-17 12:08 | P.PN ---
Subjective Date of Service: 10/17/20 Primary Care Provider: Dr. Vasquez(I am covering for him) Chief Complaint: respiratory failure Subjective: Improving ( improving patient is ambulating has having some problems with her CPAP) Review of Systems General: Weakness Respiratory: Shortness of Breath Physical Examination - Vital Signs Temperature: 97.5 F Blood Pressure: 114/68 Pulse: 94 Respirations: 18 Pulse Ox (%): 96 - Physical Exam General: Alert, In no apparent distress, Oriented x3 Respiratory: Clear to auscultation bilaterally, Diminished - Studies Laboratory Data (last 24 hrs) 10/17/20 05:57: Sodium 142, Potassium 4.3, BUN 37 H, Creatinine 1.19, Glucose 139 H, Phosphorus 5.0 H Microbiology Data (last 24 hrs): 10/15/20 00:20 Clean Catch Urine [place] Count - Final >100,000 CFU/ML. 10/15/20 00:20 Clean Catch Urine - Final MIXED JAYDA. Assessment & Plan - Problems (Diagnosis) (1) Respiratory failure with hypoxia and hypercapnia Current Visit: Yes Status: Acute Plan: patient is 60 years of age admitted with respiratory failure chronic hypoxemia hypercapnia history of sleep apnea will recheck her arterial blood gases continue with Diamox in spironolactone chemistries reviewed repeat arterial blood gases need outpatient pulmonary function test Qualifiers: Chronicity: chronic Qualified Code(s): J96.11 - Chronic respiratory failure with hypoxia; J96.12 - Chronic respiratory failure with hypercapnia
[2020-10-17 12:39] LABS: Arterial Blood Carboxyhemoglob 1.3 % (0-1.5); Blood Gas Oxyhemoglobin 87.4 % (94-97); Blood O2 Saturation 89.3 % (92-98.5)
[2020-10-17] MEDS: LOSARTAN POTASSIUM 50 MG TABLET PO SCH (13:00)
--- NOTE | 2020-10-17 16:09 | P.PN ---
Subjective Date of Service: 10/17/20 Primary Care Provider: Dr. Vasquez(I am covering for him) Chief Complaint: respiratory failure Subjective: Doing well Physical Examination - Vital Signs Temperature: 97.5 F Blood Pressure: 114/68 Pulse: 94 Respirations: 18 Pulse Ox (%): 96 - Studies Laboratory Data (last 24 hrs) 10/17/20 05:57: Sodium 142, Potassium 4.3, BUN 37 H, Creatinine 1.19, Glucose 139 H, Phosphorus 5.0 H Microbiology Data (last 24 hrs): 10/15/20 00:20 Clean Catch Urine [place] Count - Final >100,000 CFU/ML. 10/15/20 00:20 Clean Catch Urine - Final MIXED JAYDA. Assessment & Plan Discharge Plan: Home Plan to discharge in: Greater than 2 days Physician Review Additional Text: Physical Exam: GENERAL: [The patient is a well-developed, well-nourished, in no apparent distress. Alert and oriented x3.] VITAL SIGNS: [Reviewed] blood pressure well controlled. HEENT: Neck supple. LUNGS: The breath sounds noted. HEART: [Regular rate and rhythm, no appreciable gallops, rubs, murmurs or extra heart sounds] ABDOMEN: [Soft, nontender, and nondistended. Positive bowel sounds. No hepatosplenomegaly was noted.] EXTREMITIES: 1+ pitting edema to the lower extremities noted. NEUROLOGIC: [The patient is oriented to person, place and time. Strength and sensation are grossly intact. Face is symmetric.] SKIN: [Normal color, turgor and temperature. 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 Spoke to Nephrology. Nephrology plans to decrease Losartan to 50 mg daily and Aldactone to 50 daily due to GFR slightly worse. Continue with Norvasc 10 mg daily, Keppra 250 mg 1 pill twice daily, Lipitor 80 mg daily, Diamox 250 mg daily, Metformin 500 mg 1 pill twice daily, Januvia 100 mg daily, and albuterol as needed. Will need to check with Pulmonary to see if he wants to continue with Diamox daily or can this be discontinued. Continue with inpatient rehab. Recommend to hold blood pressure medication if less than 110 systolic. Recommend 1500 cc per day fluid restriction. Continue monitor the patient closely. Patient doing well this time. Patient has obstructive sleep apnea continue CPAP at night. Expected date of discharge 10/23/2020. Code Status: [Full Code] DVT prophylaxis: none due to recent hemorrhagic CVA Advanced Care Planning-30 minutes: Patient currently in rehab. The plan is to continue rehab. Likely discharge 10/23/2020 Time Spent Managing Pts Care (In Minutes): 55
--- NOTE | 2020-10-17 18:41 | PN ---
Date of Progress Note: 10/17/2020 Subjective: The patient was admitted to the rehabilitation. The patient had chronic kidney disease with nephrotic range of proteinuria secondary to diabetes. Physical Examination: Vital Signs: Blood pressure 114/68, pulse of 94, afebrile. Chest: Clear to auscultation. Heart: S1, S2. Regular. Abdomen: Soft, nontender. Extremities: Trace edema. Neuro: Alert. No focality. Laboratory Data: Hemoglobin 15.7. Sodium 142, potassium 4.3, bicarb 29, BUN 37, creatinine 1.1. GF R of 46, phosphorus 5, calcium 8.8, albumin 2.5. Current Medications: Include Keppra, acetazolamide 250, Aldactone 100, metformin 500, spironolactone 100, losartan 100, atorvastatin, and amlodipine 5. Assessment And Plan: 1.Acute kidney injury, nephrotic range proteinuria, possible secondary to over diuresis. I am going to decrease spironolactone to 50, losartan to 50 and we will monitor the patient closely. We will c onsider holding acetazolamide if okay with Pulmonary. 2.Hypertension with the presence of acute kidney injury. Decrease spironolactone and losartan. 3.Deconditioning. Continue PT and OT. 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 We will confirm with biopsy. As above, continue ARB, losartan and spironolactone. AJ/KESHAWN Voice ID: [id number] Report ID: [id number]
[2020-10-17] MEDS: ATORVASTATIN 80 MG TAB PO SCH (19:07)
[2020-10-18] MEDS: INSULIN -REGULAR HUMAN 50 UNIT/0.5 ML ML SQ SCH ×4 (07:12→20:53)
[2020-10-18] MEDS: VITAMIN D 5,000 UNIT CAP PO SCH (07:57)
[2020-10-18] MEDS: SITAGLIPTIN PHOS 100 MG TAB PO SCH (07:57)
[2020-10-18] MEDS: LOSARTAN POTASSIUM 50 MG TABLET PO SCH (07:57)
[2020-10-18] MEDS: acetaZOLAMIDE 250 MG TAB PO SCH (07:57)
[2020-10-18] MEDS: METFORMIN HCL 500 MG TAB PO SCH ×2 (07:57→16:28)
[2020-10-18] MEDS: levETIRAcetam 500 MG TAB PO SCH ×2 (07:58→19:51)
[2020-10-18] MEDS: SPIRONOLACTONE 100 MG TAB PO SCH (07:58)
[2020-10-18] MEDS: JUVEN PACKET PO SCH ×2 (08:06→19:51)
[2020-10-18] MEDS: AMLODIPINE 5 MG TAB PO SCH (10:24)
--- NOTE | 2020-10-18 15:12 | FAST ---
[employer] FORM SHIFT START DATE/TIME: 10/18/2020 07:00 (CDT) SHIFT END DATE/TIME: 10/18/2020 19:00 (CDT) NAME EMMY ISBELL DATE OF : 1960 DATE OF ADMISSION: 10/14/2020 22:41 (CDT) PHONE: AGE: 60 N# [id number] GENDER: Female ENCOUNTER PHYSICIAN: Dr. Brayden Mcledo M.D. ADMISSION DIAGNOSIS: - Stroke 01 - Left Body (Right Brain) (01.1) Evolving 2 cm intraparenchymal hemorrhage with surrounding edema involving the right basal ganglia, internal capsule, and griffith radiata. The hemorrhage is noted on the report for the CT head dated 09/22/2020, but images are unavailable for review/comparison. EATING: EATING - STEP 1: Does the patient complete the activity by him/herself with no assistance (physical, verbal/nonverbal cueing, setup/clean-up)? No. EATING - STEP 2: Does the patient need only setup/clean-up assistance from one helper? Yes. 1. [id number] ADMISSION PERFORMANCE: Setup or clean-up assistance CODE: 05 ORAL HYGIENE: ORAL HYGIENE - STEP 1: Does the patient complete the activity by him/herself with no assistance (physical, verbal/nonverbal cueing, setup/clean-up)? No. ORAL HYGIENE - STEP 2: Does the patient need only setup/clean-up assistance from one helper? Yes. 1. [id number] ADMISSION PERFORMANCE: Setup or clean-up assistance CODE: 05 TOILETING HYGIENE: TOILETING HYGIENE - STEP 1: Does the patient complete the activity by him/herself with no assistance (physical, verbal/nonverbal cueing, setup/clean-up)? No. TOILETING HYGIENE - STEP 2: Does the patient need only setup/clean-up assistance from one helper? Yes. 1. [id number] ADMISSION PERFORMANCE: Setup or clean-up assistance CODE: 05 BATHING: Not assessed/no information CODE: - DRESSING - UPPER BODY: DRESSING - UPPER BODY - STEP 1: Does the patient complete the activity by him/herself with no assistance (physical, verbal/nonverbal cueing, setup/clean-up)? No. DRESSING - UPPER BODY - STEP 2: Does the patient need only setup/clean-up assistance from one helper? No. DRESSING - UPPER BODY - STEP 3: Does the patient need only verbal/nonverbal cueing or touching/steadying/contact guard assistance fro m one helper? Yes. 1. [id number] ADMISSION PERFORMANCE: Supervision or touching assistance CODE: 04 DRESSING - LOWER BODY: DRESSING - LOWER BODY - STEP 1: Does the patient complete the activity by him/herself with no assistance (physical, verbal/nonverbal cueing, setup/clean-up)? No. DRESSING - LOWER BODY - STEP 2: Does the patient need only setup/clean-up assistance from one helper? No. DRESSING - LOWER BODY - STEP 3: Does the patient need only verbal/nonverbal cueing or touching/steadying/contact guard assistance fro m one helper? Yes. 1. [id number] ADMISSION PERFORMANCE: Supervision or touching assistance CODE: 04 PUTTING ON/TAKING OFF FOOTWEAR: FOOTWEAR - STEP 1: Does the patient complete the activity by him/herself with no assistance (physical, verbal/nonverbal cueing, setup/clean-up)? No. FOOTWEAR - STEP 2: Does the patient need only setup/clean-up assistance from one helper? No. FOOTWEAR - STEP 3: Does the patient need only verbal/nonverbal cueing or touching/steadying/contact guard assistance fro m one helper? No. FOOTWEAR - STEP 4: Does the patient need physical assistance - for example lifting or trunk support from one helper - wi th the helper providing less than half of the effort? Yes. 1. [id number] ADMISSION PERFORMANCE: Partial/moderate assistance CODE: 03 ROLL LEFT AND RIGHT: ROLL LEFT AND RIGHT - STEP 1: Does the patient complete the activity by him/herself with no assistance (physical, verbal/nonverbal cueing, setup/clean-up)? No. ROLL LEFT AND RIGHT - STEP 2: Does the patient need only setup/clean-up assistance from one helper? No. ROLL LEFT AND RIGHT - STEP 3: Does the patient need only verbal/nonverbal cueing or touching/steadying/contact guard assistance fro m one helper? Yes. 1. [id number] ADMISSION PERFORMANCE: Supervision or touching assistance CODE: 04 SIT TO LYING: SIT TO LYING - STEP 1: Does the patient complete the activity by him/herself with no assistance (physical, verbal/nonverbal cueing, setup/clean-up)? No. SIT TO LYING - STEP 2: Does the patient need only setup/clean-up assistance from one helper? No. SIT TO LYING - STEP 3: Does the patient need only verbal/nonverbal cueing or touching/steadying/contact guard assistance fro m one helper? Yes. 1. [id number] ADMISSION PERFORMANCE: Supervision or touching assistance CODE: 04 LYING TO SITTING: LYING TO SITTING ON SIDE OF BED - STEP 1: Does the patient complete the activity by him/herself with no assistance (physical, verbal/nonverbal cueing, setup/clean-up)? No. LYING TO SITTING ON SIDE OF BED - STEP 2: Does the patient need only setup/clean-up assistance from one helper? No. LYING TO SITTING ON SIDE OF BED - STEP 3: Does the patient need only verbal/nonverbal cueing or touching/steadying/contact guard assistance fro m one helper? Yes. 1. [id number] ADMISSION PERFORMANCE: Supervision or touching assistance CODE: 04 SIT TO STAND: SIT TO STAND - STEP 1: Does the patient complete the activity by him/herself with no assistance (physical, verbal/nonverbal cueing, setup/clean-up)? No. SIT TO STAND - STEP 2: Does the patient need only setup/clean-up assistance from one helper? No. SIT TO STAND - STEP 3: Does the patient need only verbal/nonverbal cueing or touching/steadying/contact guard assistance fro m one helper? Yes. 1. [id number] ADMISSION PERFORMANCE: Supervision or touching assistance CODE: 04 TRANSFERS: BED, CHAIR: CHAIR/[id number] TRANSFER - STEP 1: Does the patient complete the activity by him/herself with no assistance (physical, verbal/nonverbal cueing, setup/clean-up)? No. CHAIR/[id number] TRANSFER - STEP 2: Does the patient need only setup/clean-up assistance from one helper? Yes. 1. [id number] ADMISSION PERFORMANCE: Setup or clean-up assistance CODE: 05 TRANSFER TOILET: TOILET TRANSFER - STEP 1: Does the patient complete the activity by him/herself with no assistance (physical, verbal/nonverbal cueing, setup/clean-up)? No. TOILET TRANSFER - STEP 2: Does the patient need only setup/clean-up assistance from one helper? Yes. 1. [id number] ADMISSION PERFORMANCE: Setup or clean-up assistance CODE: TRANSFERS: CAR: Not assessed/no information CODE: - WALK 10 FEET: WALK 10 FEET - STEP 1: Does the patient complete the activity by him/herself with no assistance (physical, verbal/nonverbal cueing, setup/clean-up)? No. WALK 10 FEET - STEP 2: Does the patient need only setup/clean-up assistance from one helper? No. WALK 10 FEET - STEP 3: Does the patient need only verbal/nonverbal cueing or touching/steadying/contact guard assistance fro m one helper? Yes. 1. [id number] ADMISSION PERFORMANCE: Supervision or touching assistance CODE: WALK 50 FEET: WALK 50 FEET - STEP 1: Does the patient complete the activity by him/herself with no assistance (physical, verbal/nonverbal cueing, setup/clean-up)? No. WALK 50 FEET - STEP 2: Does the patient need only setup/clean-up assistance from one helper? No. WALK 50 FEET - STEP 3: Does the patient need only verbal/nonverbal cueing or touching/steadying/contact guard assistance fro m one helper? Yes. 1. [id number] ADMISSION PERFORMANCE: Supervision or touching assistance CODE: WALK 150 FEET: WALK 150 FEET - STEP 1: Does the patient complete the activity by him/herself with no assistance (physical, verbal/nonverbal cueing, setup/clean-up)? No. WALK 150 FEET - STEP 2: Does the patient need only setup/clean-up assistance from one helper? No. WALK 150 FEET - STEP 3: Does the patient need only verbal/nonverbal cueing or touching/steadying/contact guard assistance fro m one helper? Yes. 1. [id number] ADMISSION PERFORMANCE: Supervision or touching assistance CODE: WALK 10 FEET UNEVEN: Not assessed/no information CODE: - 1 STEP (CURB): Not assessed/no information CODE: - PICKING UP OBJECT: Not assessed/no information CODE: - DOES THE PATIENT USE A WHEELCHAIR/SCOOTER? Q1. DOES THE PATIENT USE A WHEELCHAIR/SCOOTER?: Yes CODE: 1 WHEEL 50 FEET WITH TWO TURNS: WHEEL 50 FEET WITH TWO TURNS - STEP 1: Does the patient complete the activity by him/herself with no assistance (physical, verbal/nonverbal cueing, setup/clean-up)? No. WHEEL 50 FEET WITH TWO TURNS - STEP 2: Does the patient need only setup/clean-up assistance from one helper? No. WHEEL 50 FEET WITH TWO TURNS - STEP 3: Does the patient need only verbal/nonverbal cueing or touching/steadying/contact guard assistance fro m one helper? Yes. 1. [id number] ADMISSION PERFORMANCE: Supervision or touching assistance CODE: 04 INDICATE THE TYPE OF WHEELCHAIR/SCOOTER USED: RR1. INDICATE THE TYPE OF WHEELCHAIR/SCOOTER USED.: Manual CODE: 1 WHEEL 150 FEET: WHEEL 150 FEET - STEP 1: Does the patient complete the activity by him/herself with no assistance (physical, verbal/nonverbal cueing, setup/clean-up)? No. WHEEL 150 FEET - STEP 2: Does the patient need only setup/clean-up assistance from one helper? No. WHEEL 150 FEET - STEP 3: Does the patient need only verbal/nonverbal cueing or touching/steadying/contact guard assistance fro m one helper? Yes. 1. [id number] ADMISSION PERFORMANCE: Supervision or touching assistance CODE: 04 INDICATE THE TYPE OF WHEELCHAIR/SCOOTER USED: SS1. INDICATE THE TYPE OF WHEELCHAIR/SCOOTER USED.: Manual CODE: 1 BLADDER AND BOWEL: H350. BLADDER CONTINENCE (3-DAY ASSESSMENT PERIOD): Always continent (no documented incontinence) CODE: 0 H400. BOWEL CONTINENCE (3-DAY ASSESSMENT PERIOD): Always continent CODE: 0 SIGNATURE PANEL: The following modified sections: 1. [id number] Admission Performance, 1. WR0963S Admission Performance, 1. [id number] Admission Performance, 1. UA7632u Admission Performance, 1. KG7001x Admission Performance, 1. BL2229e Admission Performance, 1. SI7852u Admission Performance, 1. YR3115E Admission Performance , 1. RP7920I Admission Performance, 1. XL8884K Admission Performance, 1. MJ8010N Admission Performanc e, 1. WT8698Y Admission Performance, 1. RC0890M Admission Performance, 1. JH2419U Admission Performan ce, 1. WO1986S Admission Performance, 1. CZ5628O Admission Performance, Q1. Does the patient use a wh eelchair/scooter?, 1. [id number] Admission Performance, RR1. Indicate the type of wheelchair/scooter use d., 1. BG0928L Admission Performance, Code, 1. GM8459V Admission Performance, Code, SS1. Indicate the type of wheelchair/scooter used., H350. Bladder Continence (3-day assessment period), H400. Bowel Co ntinence (3-day assessment period) were [electronically] signed by Susan NguyenNZaire on SunOct 18 2020 15:11:49 GMT-0500 (Central Daylight Time)
--- NOTE | 2020-10-18 19:11 | PN ---
Date of Progress Note: 10/18/2020 Chief Complaint: Diabetic kidney disease, severe proteinuria, fluid overload. The patient has been treated with multiple diuretics including Aldactone. The patient is on angiotensin receptor zaida for blood pressure control and proteinuria control. She was scheduled to have renal biopsy and resul ts are pending. The patient is on angiotensin receptor zaida with losartan as well as spironolactone for proteinuri a control. The patient is feeling better. Review of Systems: Denies PND, orthopnea. Physical Examination: Lungs: Clear to auscultation bilaterally. Heart: S1, S2. Abdomen: Soft, benign. Extremities: Slight edema in both ankles. Laboratory Data: Creatinine level 1.1, BUN 37, potassium 4.37, sodium 142, albumin 2.5. Impression And Plan: 1.Acute kidney injury, nephrotic-range proteinuria. The patient has prerenal azotemia. The patient will continue diuretics for volume control. Continue to titrate per maintenance diuretic dose. 2.Hypertension. Continue losartan and monitor blood pressure. 3.Nephrotic-range proteinuria. Biopsy results not available at this point. Follow up on renal biop sy results. MOMO/KESHAWN Voice ID: [id number] Report ID: [id number]
[2020-10-18] MEDS: ATORVASTATIN 80 MG TAB PO SCH (20:53)
[2020-10-19] MEDS: INSULIN -REGULAR HUMAN 50 UNIT/0.5 ML ML SQ SCH ×2 (07:30→11:30)
[2020-10-19 07:37] VITALS: TEMP 97.1
[2020-10-19] MEDS ORDERED: SPIRONOLACTONE 25 MG TABLET PO SCH (08:00)
[2020-10-19] MEDS: levETIRAcetam 500 MG TAB PO SCH (08:33)
[2020-10-19] MEDS: SITAGLIPTIN PHOS 100 MG TAB PO SCH (08:33)
[2020-10-19] MEDS: LOSARTAN POTASSIUM 50 MG TABLET PO SCH (08:33)
[2020-10-19] MEDS: VITAMIN D 5,000 UNIT CAP PO SCH (08:33)
[2020-10-19] MEDS: METFORMIN HCL 500 MG TAB PO SCH (08:34)
[2020-10-19] MEDS: JUVEN PACKET PO SCH (08:35)
[2020-10-19] MEDS: AMLODIPINE 5 MG TAB PO SCH (10:12)
[2020-10-19 10:20] VITALS: BP 117/71
[2020-10-19 12:49] VITALS: O2SAT 94
== END 2020-10-19 14:45 | disposition home or self-care (01) | DRG 57 ==
LOC: 5TH 10-14 22:58
PROVIDERS: ADMIT Psychiatry & Neurology Neurology with Special Qualifications in Child Neurology; ATTEND Psychiatry & Neurology Neurology with Special Qualifications in Child Neurology
PROC: 5A09457 Assistance with Respiratory Ventilation, 24-96 Consecutive Hours, Continuous Positive Airway Pressure (ICD-10-PCS; principal; 2020-10-17)
DX: I69.354 Hemiplegia and hemiparesis following cerebral infarction affecting left non-dominant side (principal); I50.32 Chronic diastolic (congestive) heart failure; I13.0 Hypertensive heart and chronic kidney disease with heart failure and stage 1 through stage 4 chronic kidney disease, or unspecified chronic kidney disease; J96.11 Chronic respiratory failure with hypoxia; J96.12 Chronic respiratory failure with hypercapnia; N17.9 Acute kidney failure, unspecified; N18.30 Chronic kidney disease, stage 3 unspecified; E11.22 Type 2 diabetes mellitus with diabetic chronic kidney disease; E11.40 Type 2 diabetes mellitus with diabetic neuropathy, unspecified; E78.5 Hyperlipidemia, unspecified; E87.5 Hyperkalemia; G47.33 Obstructive sleep apnea (adult) (pediatric); Z98.84 Bariatric surgery status; Z79.84 Long term (current) use of oral hypoglycemic drugs; Z79.899 Other long term (current) drug therapy; Z20.822 Contact with and (suspected) exposure to COVID-19
CPT/HCPCS: 36415; 80048; 80069; 81001; 82040; 82805; 82947; 83735; 84134; 85025; 87086; 87088; 94660; 94760; 97110; 97112; 97116; 97161; 97530; 97542; U0003

== ENCOUNTER 2024-06-16 12:00 | Day surgery (SDC) | payer OTHER ==
[2024-06-13 13:25] LABS: Absolute Basophils 0.1 K/uL (0-0.5); Absolute Eosinophils 0.5 K/uL (0-0.5); Absolute Lymphocytes (CBC) 1.3 K/uL (0.7-4.9); Absolute Monocytes 0.5 K/uL (0.1-1.3); Absolute Neutrophil 4.5 K/uL (1.8-8.0); Basophils % 1.3 % (0-1.3); Eosinophils % 7.8 % (0-4.4); Hematocrit 25.2 % (36.0-45.0); Hemoglobin 8.1 g/dL (12.0-15.0); Lymphocytes % 18.3 % (15.3-44.8); MCH 27.3 pg (27.0-35.0); MCHC 32.2 g/dL (32.0-36.0); MCV 84.7 fL (80-100); MPV 8.6 fL (7.6-11.3); Monocytes % 7.7 % (3.3-12.3); Neutrophils % 64.9 % (41.7-73.7); Nucleated Red Blood Cells % 0.1 % (0-0); Platelets 204 thou/uL (152-406); RBC Red Blood Cell Count 2.98 M/uL (3.86-4.86); Red Cell Distribution Width 17.2 % (12.1-15.2)
--- NOTE | 2024-06-13 13:25 | RAD REPORT ---
EXAM: Chest Pa And Lat (2 Views) HISTORY: 63 years Female Pre-op pending heart cath COMPARISON: 10/12/2020 FINDINGS: LUNGS/PLEURA: The lungs are clear. No pleural effusions or pneumothorax. No pulmonary edema. MEDIASTINUM: Right hilar fullness likely due to an enlarged pulmonary artery. CARDIAC: Mild cardiomegaly UPPER ABDOMEN: No significant abnormality. BONES: No acute abnormality. LINES/TUBES/OTHER: N/A IMPRESSION: No evidence of acute cardiopulmonary disease. Question pulmonary artery enlargement.
[2024-06-13 13:27] LABS: PT Prothrombin Time 10.5 SECONDS (9.4-12.5); PTT, Activated Partial Thromb 40.2 SECONDS (24.3-36.9)
[2024-06-13 13:32] LABS: Anion Gap 8.2 mEq/L (5.0-15.0); Potassium 4.2 mEq/L (3.5-5.1)
[2024-06-16] MEDS ORDERED: NA CHLORIDE 0.9% 500 ML ONE (12:32)
[2024-06-16] MEDS ORDERED: LIDOCAINE 1% 20 ML MDV ONE (15:17)
[2024-06-16] MEDS ORDERED: HEPA 1000U/500MLS 2,000 UNIT/1,000 ML BAG IV ONE (15:17)
[2024-06-16] MEDS ORDERED: MIDAZOLAM HCL 2 MG/2 ML INJ ONE (15:31)
[2024-06-16] MEDS ORDERED: HEPARIN 5000 UNIT/ML 1 ML VIAL ONE (15:31)
[2024-06-16] MEDS ORDERED: VERAPAMIL HCL 10 MG/4 ML VIAL IV ONE (15:31)
[2024-06-16] MEDS ORDERED: FENTANYL CITR 100 MCG/2 ML ONE (15:32)
[2024-06-16 17:32] VITALS: TEMP 98.2
[2024-06-16 17:59] VITALS: BP 147/65
[2024-06-16 18:17] VITALS: O2SAT 97
--- NOTE | 2024-06-17 02:49 | OP ---
Date of Procedure: 06/16/2024 Surgeon: HIWOT AVILA Procedures Performed: 1.Selective coronary angiogram. 2.Left heart catheterization. Indication: Chest pain with abnormal stress test. Access: Right radial artery, 6-[place], closed with TR band. Complications: None. Bleeding: Less than 50 mL. Total Sedation Time: 1 hour, used fentanyl and Versed. Description Of Procedure: After risks, benefits, and alternatives were explained, the patient agreed to procedure and signed informed consent. The [facility], prepped and draped in usual sterile fashion. Then, I accessed right radial artery using pedi atric micropuncture kit, ultrasound guidance, and fluoroscopy. Placed 6-[place] slender sheath and to ok 5-[place] Mazon 4 catheter into the aortic root over J-wire, across the aortic valve, measured the LVEDP. Pullback did not record any gradient. Then engaged the left main, took standard views and th en RCA, took standard views. Used a very small amount of contrast, all in all about 17 cc for the wh ole angiogram and then removed the guide and the sheath. Placed TR band with good hemostasis. Findings: 1.Left main: Large and normal. 2.LAD: Proximal segment is normal. Mid segment, there is focal 40% to 50% stenosis. Distally, the re is 40% stenosis. Diagonal branches with luminal irregularities. 3.Left circumflex: Proximal 40%. At the very distal end of it, it is a very small vessel. It is 8 0% stenosed. 4.RCA: It is large and dominant. It has mid 40% and distal 30% stenosis. The PDA has very long 80 % to 90% stenosis with TIMMY-3 flow. Due to the advanced kidney disease, her GFR is less than 20% wit h a creatinine of 3.8. We decided to stop. She will need a PCI of the PDA; however, we will stage i t due to the advanced kidney disease to avoid using large amount of contrast. Conclusion: Severe right PDA stenosis, needs PCI. This will be staged due to the advanced kidney di sease today to avoid using large amount of contrast and we will plan to bring her back in a month aft er prehydration and do a PCI of the PDA. We will start her on aspirin and Plavix as an outpatient. Otherwise, it is moderate coronary artery disease. To continue medical management for now. To see dylon lopes in the office in 1 week to arrange for the PDA PCI at a later time. /MODL Voice ID: [id number] Report ID: [id number]
--- NOTE | 2024-06-18 12:47 | EKG ---
Test Date: 2024-06-13 Test Time: 14:00:25 Caddie Supervisor: ANGELIC MEASUREMENT RESULTS: Intervals: Rate: 72 FL: 168 QRSD: 82 QT: 420 QTc: 459 [place]: P: 70 FL: 168 QRS: 69 T: 61 INTERPRETIVE STATEMENTS: Normal sinus rhythm Normal ECG Compared to ECG 09/22/2020 18:29:35 Right-axis deviation no longer present Myocardial infarct finding no longer present Electronically Signed On 06-18-24 12:37:29 POWER LINEMAN TECHNICIAN by Antonio Hahn
== END 2024-06-16 18:18 | disposition home or self-care (01) ==
LOC: CCL 12:00
PROVIDERS: ATTEND Internal Medicine
DX: I25.110 Atherosclerotic heart disease of native coronary artery with unstable angina pectoris (principal); I10 Essential (primary) hypertension; E78.2 Mixed hyperlipidemia; E11.9 Type 2 diabetes mellitus without complications; Z79.899 Other long term (current) drug therapy; Z82.49 Family history of ischemic heart disease and other diseases of the circulatory system
CPT/HCPCS: 93005; 85025; 80048; 36415; 85610; 82947; 85730; 71046; 93458; 76937; C1893; Q9966; J1644; J2003; J2250; J3010; J7040; 99152; 99153

== ENCOUNTER 2024-08-11 16:08 | Observation (INO) | payer OTHER ==
[2024-08-11] MEDS ORDERED: ACETAMINOPHEN 325 MG TABLET PO PRN (16:46)
[2024-08-11] MEDS ORDERED: DIPHENHYDRAMINE 25 MG TAB/CAP PO PRN (16:47)
[2024-08-11] MEDS ORDERED: LOPERAMIDE HCL 2 MG CAPSULE PO PRN (16:48)
[2024-08-11] MEDS ORDERED: ONDANSETRON 4 MG/2 ML VIAL IV PRN (16:49)
[2024-08-11] MEDS ORDERED: POLYETHYL GLY 3350 17 GM/DOSE PO PRN (16:49)
[2024-08-11 17:18] VITALS: BMI 34.7
[2024-08-11] MEDS: NACHLORIDE 0.45% 1,000 ML IV SCH (18:15)
[2024-08-11 18:16] LABS: Absolute Basophils 0.1 K/uL (0-0.5); Absolute Eosinophils 0.5 K/uL (0-0.5); Absolute Lymphocytes (CBC) 1.6 K/uL (0.7-4.9); Absolute Monocytes 0.6 K/uL (0.1-1.3); Absolute Neutrophil 4.2 K/uL (1.8-8.0); Basophils % 1.5 % (0-1.3); Eosinophils % 7.6 % (0-4.4); Hemoglobin 7.6 g/dL (12.0-15.0); Lymphocytes % 22.2 % (15.3-44.8); MCH 26.4 pg (27.0-35.0); MCHC 31.8 g/dL (32.0-36.0); MCV 83.1 fL (80-100); MPV 8.5 fL (7.6-11.3); Monocytes % 9.3 % (3.3-12.3); Neutrophils % 59.4 % (41.7-73.7); Nucleated Red Blood Cells % 0.1 % (0-0); Platelets 234 thou/uL (152-406); RBC Red Blood Cell Count 2.88 M/uL (3.86-4.86); Red Cell Distribution Width 18.7 % (12.1-15.2)
[2024-08-11] MEDS: cloNIDine HCL 0.1 MG TAB PO PRN (22:09)
[2024-08-11] MEDS: INSULIN REGULAR (HUMAN) 100 UNIT/ML SQ SCH (22:10)
[2024-08-11] MEDS ORDERED: NA CHLORIDE 0.9% 250 ML ONE (23:02)
[2024-08-12] MEDS ORDERED: NA CHLORIDE 0.9% 250 ML ONE (02:31)
[2024-08-12 07:57] LABS: Hematocrit 27.6 % (36.0-45.0); Hemoglobin 8.9 g/dL (12.0-15.0)
[2024-08-12] MEDS: HYDRALAZINE HCL 25 MG TABLET PO SCH (08:44)
[2024-08-12 08:49] VITALS: BP 168/78; TEMP 98.4
[2024-08-12 08:59] LABS: Influenza A Ag Negative; Influenza B Ag Negative; SARS-CoV-2 Antigen Rapid Res Negative (Negative)
--- NOTE | 2024-08-12 13:16 | P.DS ---
Admission Date: 08/11/24 Discharge Date: 08/12/24 Disposition: ROUTINE DISCHARGE Discharge Condition: [facility] Hospital Course: BHUPENDRA HAD SEVERE ANEMIA WITH CORONARY DISEASE. SHE IS GIVEN TWO UNITS OF PACKED RBCS. SHE IS STABLE. SHE NEEDS CATH BUT HAS CKD4 CLOSE TO 5. I CALLED DR NOYOLA TO DISCUSS. I ALSO CALLED. DR AVILA. Vital Signs/Physical Exam: Temp Pulse Resp BP Pulse Ox 98.4 F 68 18 168/78 H 93 08/12/24 08:00 08/12/24 08:00 08/12/24 08:00 08/12/24 08:00 08/12/24 08:00 Laboratory Data at Discharge: WBC Cancelled 08/11/24 Unknown Hgb 8.9 g/dL (12.0-15.0) L D 08/12/24 07:44 Hct 27.6 % (36.0-45.0) L 08/12/24 07:44 Plt Count Cancelled 08/11/24 Unknown Sodium 143 mEq/L (136-145) 08/11/24 17:46 Potassium 4.0 mEq/L (3.5-5.1) 08/11/24 17:46 BUN 72 mg/dL (7-18) H 08/11/24 17:46 Creatinine 4.15 mg/dL (0.55-1.02) H 08/11/24 17:46 Glucose 86 mg/dL (74-106) 08/11/24 17:46 Home Medications: Albuterol Sulfate [Proair Respiclick] 2 puff IH Q6H PRN 10/08/20 Atorvastatin Calcium [Lipitor] 80 mg PO BEDTIME 10/08/20 Cholecalciferol (Vitamin D3) [Vitamin D 5,000 IU Cap*] 5,000 unit PO DAILY cap 10/14/20 Magnesium Oxide [Magnesium] 250 mg PO DAILY 03/07/23 Ubiquinol [Qunol Javed Coq10] 100 mg PO DAILY 03/07/23 carvediloL [Coreg] 25 mg PO BID 03/07/23 hydroCHLOROthiazide [Hydrochlorothiazide] 25 mg PO DAILY 03/07/23 Hydralazine HCl 25 mg PO BID 08/11/24 Losartan Potassium [Cozaar] 25 mg PO DAILY 08/11/24 Semaglutide [Rybelsus] 25 mg PO DAILY 08/11/24 Followup: Kg Vasquez MD [ACTIVE - CAN ADMIT] - 1-2 Weeks
== END 2024-08-12 09:30 | disposition home or self-care (01) ==
LOC: 2ND 16:08
PROVIDERS: ADMIT Internal Medicine; ATTEND Internal Medicine
PROC: 30233N1 Transfusion of Nonautologous Red Blood Cells into Peripheral Vein, Percutaneous Approach (ICD-10-PCS; principal; 2024-08-11)
DX: D64.9 Anemia, unspecified (principal); N18.4 Chronic kidney disease, stage 4 (severe); E11.9 Type 2 diabetes mellitus without complications; G47.33 Obstructive sleep apnea (adult) (pediatric); E66.01 Morbid (severe) obesity due to excess calories; I10 Essential (primary) hypertension; I25.10 Atherosclerotic heart disease of native coronary artery without angina pectoris; Z68.34 Body mass index [BMI] 34.0-34.9, adult; Z11.52 Encounter for screening for COVID-19
CPT/HCPCS: 85025; 80048; 36415; 86900; 86850; 86901; 82947 ×2; 86920 ×2; 85018; 85014; 82607; 83540; 87428; 36430; J1815; P9016 ×2; J7050 ×2; G0378

== ENCOUNTER 2024-12-24 11:00 | Inpatient (IN) | payer OTHER ==
[2024-12-23 09:04] LABS: Absolute Lymphocytes (CBC) 1.5 K/uL (0.7-4.9); Hematocrit 26.9 % (36.0-45.0); Hemoglobin 8.6 g/dL (12.0-15.0); MCH 27.6 pg (27.0-35.0); MCHC 32.0 g/dL (32.0-36.0); MCV 86.3 fL (80-100); MPV 8.6 fL (7.6-11.3); Nucleated RBC Absolute Count 0.0 (0-0); Nucleated Red Blood Cells % 0.1 % (0-0); RBC Red Blood Cell Count 3.12 M/uL (3.86-4.86); White Blood Count 6.90 thou/uL (4.3-10.9)
[2024-12-23 09:18] LABS: PT Prothrombin Time 11.2 SECONDS (10-13.0); PTT, Activated Partial Thromb 35.4 SECONDS (27.2-37.4); Protime INR 0.99
[2024-12-23 09:22] LABS: Anion Gap 11.5 mEq/L (5.0-15.0); BUN Blood Urea Nitrogen 103.0 mg/dL (7-18); Glucose Level 91.0 mg/dL (74-106); Potassium 4.5 mEq/L (3.5-5.1)
--- NOTE | 2024-12-23 10:25 | RAD REPORT ---
EXAMINATION: TWO VIEW CHEST XR CLINICAL INDICATION: Female, 64 years old. [facility] Pre-op pending heart catheterization. Potential TECHNIQUE: 2 view radiographs of the chest were performed. COMPARISON: 06/13/2024 FINDINGS: The lungs are well inflated and clear. No pneumothorax or sizable effusion. Mediastinal contours are unchanged with mild prominence of the left and central pulmonary vessels. IMPRESSION: No acute or significant abnormalities.
[2024-12-23 11:40] LABS: Anisocytosis 1+; Blood Morphology Comment NOTED (NOT SEEN); White Blood Cell Scan OK (OK)
[2024-12-24] MEDS: NA CHLORIDE 0.9% 0 ML ONE (11:26)
[2024-12-24] MEDS: FENTANYL CITR 100 MCG/2 ML ONE (11:37)
[2024-12-24] MEDS: MIDAZOLAM HCL 2 MG/2 ML INJ ONE (11:37)
[2024-12-24] MEDS ORDERED: HEPA 1000U/500MLS 0 UNIT/0 ML BAG IV ONE (11:53)
[2024-12-24] MEDS ORDERED: HEPARIN 10,000 UNIT/10 ML VIAL IV ONE (11:54)
[2024-12-24] MEDS ORDERED: ATROPINE SULF 1 MG/10 ML SYR IV ONE (11:54)
[2024-12-24] MEDS ORDERED: LIDOCAINE 1% 20 ML MDV ONE (11:54)
[2024-12-24] MEDS ORDERED: HEPARIN 5000 UNIT/ML 1 ML VIAL ONE (11:54)
[2024-12-24] MEDS ORDERED: VERAPAMIL HCL 10 MG/4 ML VIAL IV ONE (11:54)
[2024-12-24] MEDS ORDERED: CLOPIDOGREL 75 MG TABLET ONE ×2 (11:55→11:56)
[2024-12-24] MEDS ORDERED: TICAGRELOR 90 MG TABLET PO ONE (11:55)
[2024-12-24] MEDS: NA CHLORIDE 0.9% 500 ML ONE (13:27)
[2024-12-24] MEDS: NA CHLORIDE 0.9% 100 ML ONE (13:51)
[2024-12-24] MEDS: NS 0.9% VIAL 10 ML ONE (13:51)
--- NOTE | 2024-12-24 14:03 | P.CNS ---
Date of Consult: 12/24/24 Reason for consult: Patient needs dialysis History of present illness: Patient is a 64-year-old female who was scheduled for a outpatient cardiac cath and on her preoperative blood work was found to have BUN greater than 100 and creatinine greater than 7. Patient is not on dialysis. Because the patient needs a cath patient requires dialysis before and after the procedure. Therefore the I was asked to place a temporary catheter so the patient can be dialyzed today and then undergo catheterization in the morning. Patient denies any sore throat, runny nose, cough, headaches, dizziness, chest pain or fever or chills. Review of systems: Otherwise unremarkable Past medical history: Obstructive sleep apnea, dyspnea, hypertension, diabetes, DVT, nephrotic syndrome, chronic kidney disease coronary artery disease Past surgical history: Gastric bypass and cardiac cath couple years ago Allergies: None Social history: Patient does not smoke or drink alcohol Family history: Noncontributory Vital signs: Stable, afebrile Physical exam: Awake, alert and oriented x 3 Head and neck exam: No masses Chest: Clear Heart: S1-S2 Abdomen: Soft Extremity: Neurovascular intact Neuro: Nonfocal Diagnostic data: Reviewed Assessment: Acute renal failure with coronary artery disease Plan/recommendation: Will place a temporary dialysis catheter so the patient can get her cardiac cath done. Patient understands risk, benefits and alternatives and agrees to procedure. CC:
[2024-12-24] MEDS: CEFAZOLIN SODIUM 2 GM/VIAL ONE (14:20)
[2024-12-24] MEDS ORDERED: FENTANYL CITR 100 MCG/2 ML ONE (14:22)
[2024-12-24] MEDS ORDERED: ONDANSETRON 4 MG/2 ML VIAL ONE (14:22)
[2024-12-24] MEDS ORDERED: LIDOCAINE 2% MPF 5 ML VIAL ONE (14:22)
[2024-12-24] MEDS: LIDOCAINE 1% 20 ML MDV ONE (14:50)
[2024-12-24] MEDS: HEPARIN 5000 UNIT/ML 1 ML VIAL ONE (14:50)
--- NOTE | 2024-12-24 15:03 | P.OP ---
Date of Service: 12/24/24 Preop diagnosis: Acute renal failure and coronary artery disease Postop diagnosis: Same Procedure performed: Placement of right IJ temporary dialysis catheter with utilization of Doppler and fluoroscopy Surgeon: Franky Hall MD Cleat Blanker: None Estimated blood loss: Minimal Specimen: None Findings: Normal anatomy Anesthesia: General Complications: None Drains: None Fluids and blood products: Nonapplicable Disposition: Recovery room Operative note: Patient brought to the OR placed in the supine position. General anesthesia began. Patient prepped and draped in usual sterile fashion. Lidocaine 1% locally. Doppler device used to isolate the right internal jugular vein. 18-gauge needle used to access the right internal jugular vein and guidewire passed. Position confirmed with fluoroscopy. Salinger technique used. Vein dilated and curved temporary dialysis catheter placed. Position confirmed with fluoroscopy. 3-0 nylon used to secure the catheter to the skin. Sterile dressing applied. Catheter flushed with heparin and packed with heparin with good blood flow. Patient awakened and taken to recovery room in good general condition. Chest x-ray has been ordered. CC: Dr. Vasquez's office
--- NOTE | 2024-12-24 15:51 | RAD REPORT ---
EXAM: Chest Single View HISTORY: 64 years Female s/p HD cath placement COMPARISON: 12/23/2024 FINDINGS: LUNGS/PLEURA: No pneumothorax or effusion. Pulmonary vascular congestion. CARDIAC/MEDIASTINUM: Stable enlargement. UPPER ABDOMEN: No significant abnormality. BONES: No acute abnormality. LINES/TUBES/OTHER: Right IJ approach temporary dialysis catheter with tip overlying the superior cavo atrial junction. IMPRESSION: Interval placement of a temporary right IJ approach dialysis catheter with tip at the superior cavoat rial junction. No pneumothorax.
[2024-12-24 16:52] LABS: Absolute Lymphocytes (CBC) 1.6 K/uL (0.7-4.9); Hematocrit 27.7 % (36.0-45.0); Hemoglobin 9.0 g/dL (12.0-15.0); MCH 28.0 pg (27.0-35.0); MCHC 32.3 g/dL (32.0-36.0); MCV 86.5 fL (80-100); MPV 8.7 fL (7.6-11.3); Nucleated RBC Absolute Count 0.0 (0-0); Nucleated Red Blood Cells % 0.1 % (0-0); RBC Red Blood Cell Count 3.21 M/uL (3.86-4.86); White Blood Count 7.80 thou/uL (4.3-10.9)
[2024-12-24 17:01] LABS: PT Prothrombin Time 11.9 SECONDS (10-13.0); PTT, Activated Partial Thromb 52.2 SECONDS (27.2-37.4); Protime INR 1.05
[2024-12-24 17:14] VITALS: BMI 32.9
[2024-12-24 17:24] LABS: ALT/SGPT 24 U/L (13-56); AST/SGOT 20 U/L (15-37); Albumin 2.3 g/dL (3.4-5.0); Albumin/Globulin Ratio 0.6 (1.1-1.8); Alkaline Phosphatase 75 U/L (45-117); Anion Gap 15.7 mEq/L (5.0-15.0); BUN Blood Urea Nitrogen 95 mg/dL (7-18); Globulin 4.0 g/dL (2.3-3.5); Glucose Level 108 mg/dL (74-106); Magnesium 2.3 mg/dL (1.6-2.4); Potassium 4.7 mEq/L (3.5-5.1)
[2024-12-24 17:35] LABS: Bilirubin Indirect, Calculated 0.0 mg/dL (0.2-0.8)
--- NOTE | 2024-12-24 17:37 | RAD REPORT ---
EXAM: Fluoroscopy use, Fluoroscopy <1 Hour HISTORY: HD CATH COMPARISON: None FINDINGS: A total of 3 images were sent to PACS, during a fluoroscopically guided dialysis catheter p lacement. No radiologist was involved in protocoling or performance of the study, and no radiologist was present for the duration of the procedure. No interpretation of the saved images will be provided. Total fluoroscopy time: 0.3 minutes Cumulative dose: 2.07 mGy. IMPRESSION: Documentation of fluoroscopy use as above.
--- NOTE | 2024-12-24 17:55 | P.SSS ---
Patient History Date of Service: 12/24/24 Reason for admission: CKD 5, DIALYSIS AND CATH IN AM. History of Present Illness: EMMY IS A PATIENT WITH CKD 5 WHO IS WAITING FOR AV [facility] FOR HD. SHE NEEDS CATH SHE HAS POSITIVE STRESS TEST. HER CREATIINE IS MORE THAN 7 AND SHE NEEDS HD DONE BEFORE CATH AND AFTER CATH. SHE HAS NO DYSPNEA OR CHEST PAIN. DR KNUTSON ALREADY DID THE DUONG CATHETER. HD HAS NO OPENINGS TONIGHT. THEY WILL DO HER HD IN AM AND CATH AFTER THAT. SHE WILL GET HD IN PM AND SHE MAY GO HOME AFTER THAT IF DONE ON TIME. Allergies No Known Allergies Allergy (Verified 12/23/24 08:41) Home medications list reviewed: Yes Home Medications: Atorvastatin Calcium [Lipitor] 80 mg PO BEDTIME 10/08/20 Cholecalciferol (Vitamin D3) [Vitamin D 5,000 IU Cap*] 5,000 unit PO DAILY cap 10/14/20 Magnesium Oxide [Magnesium] 250 mg PO DAILY 03/07/23 Ubiquinol [Qunol Javed Coq10] 100 mg PO DAILY 03/07/23 carvediloL [Coreg] 25 mg PO BID 03/07/23 hydroCHLOROthiazide [Hydrochlorothiazide] 25 mg PO DAILY 03/07/23 Hydralazine HCl 25 mg PO BID 08/11/24 Losartan Potassium [Cozaar] 25 mg PO DAILY 08/11/24 Semaglutide [Rybelsus] 25 mg PO DAILY 08/11/24 Calcitriol [Rocaltrol] 0.5 mcg PO DAILY 12/24/24 - Past Medical/Surgical History Has patient received pneumonia vaccine in the past: Yes Diabetic: Yes -: DM -: BERNARDINO -: HLD -: HTN -: CAD -: nephrotic kidney dz -: anemia -: sleep apnea -: gastric bypass -: aurea sesay - Family History Father -: Heart disease - Social History Smoking Status: Never smoker Alcohol use: No CD- Drugs: No Caffeine use: No Place of Residence: Home Review of Systems 10-point ROS is otherwise unremarkable Physical Examination - Vital Signs Temperature: 97.5 F Blood Pressure: 166/85 Pulse: 77 Respirations: 18 Pulse Ox (%): 93 - Physical Exam General: Alert, In no apparent distress HEENT: Atraumatic, PERRLA, Mucous membr. moist/pink, EOMI, Sclerae nonicteric Neck: Supple, 2+ carotid pulse no bruit, No LAD, Without JVD or thyroid abnormality Respiratory: Clear to auscultation bilaterally, Normal air movement Cardiovascular: Regular rate/rhythm, Normal S1 S2 Gastrointestinal: Normal bowel sounds, No tenderness Musculoskeletal: No tenderness Integumentary: No rashes Neurological: Normal gait, Normal speech, Normal strength at 5/5 x4 extr, Normal tone, Normal affect Lymphatics: No axilla or inguinal lymphadenopathy - Studies Laboratory Data (last 24 hrs) 12/24/24 12/24/24 12/24/24 16:40 16:40 16:40 WBC 7.80 Hgb 9.0 L Hct 27.7 L Plt Count 201 PT 11.9 INR 1.05 APTT 52.2 H Sodium 144 Potassium 4.7 BUN 95 H Creatinine 6.86 H Glucose 108 H Magnesium 2.3 Total Bilirubin < 0.2 L AST 20 ALT 24 Alkaline Phosphatase 75 - Diagnosis (Problem(s)) (1) CKD stage 5 secondary to hypertension Current Visit: Yes Status: Acute Plan: PLAN PER HPI HD TO BE DONE BEFORE CATH AND AFTER. SHE IS NOT SYMPTOMATIC FROM CKD (2) Coronary artery disease Current Visit: Yes Status: Chronic Plan: POS ST TEST CATH WILL DEFINE MORE. (3) Nephrotic syndrome Current Visit: Yes Status: Chronic Plan: REASON FOR CKD ALSO. - Disposition Disposition: ROUTINE DISCHARGE
[2024-12-24 20:07] LABS: Sqamous Epithelial <5 /HPF (None Seen); Urine Micro Reflex YN NO BILL MICROSCOPIC
[2024-12-24] MEDS: ACETAMINOPHEN 500 MG TAB PO PRN (20:32)
[2024-12-24] MEDS: ATORVASTATIN 80 MG TAB PO SCH (20:33)
[2024-12-24] MEDS: HYDRALAZINE HCL 25 MG TABLET PO SCH (20:33)
[2024-12-25 06:10] LABS: Hepatitis B Surface Ab - Quant 3.34 mIU/mL (<8.0); Hepatitis B surface AG Interp. Nonreactive (Nonreactive)
[2024-12-25 06:11] LABS: HBsAG Nonreactive Report Report
[2024-12-25] MEDS: COENZYME Q10- 100 MG CAP PO SCH (09:00)
[2024-12-25] MEDS: LOSARTAN POTASSIUM 50 MG TABLET PO SCH (09:00)
[2024-12-25] MEDS: VITAMIN D 5,000 UNIT CAP PO SCH (09:00)
[2024-12-25] MEDS: MAGNESIUM OXIDE 400 MG TAB PO SCH (09:00)
[2024-12-25] MEDS: CALCITROL 0.25 MCG CAP PO SCH (09:00)
[2024-12-25] MEDS: ACETAMINOPHEN 500 MG TAB PO PRN (14:00)
[2024-12-25] MEDS: TICAGRELOR 90 MG TABLET PO ONE (14:00)
[2024-12-25] MEDS ORDERED: EPOETIN 4,000 UNIT/ML VIAL IV SCH (15:15)
--- NOTE | 2024-12-25 18:47 | CON ---
Date of Consultation: 12/25/2024 Additional Consulting Physician: Dr. Vasquez. Reason For Consultation: Elevated BUN and creatinine. 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 The pa tient supposed to have AV fistula creation this month. Apparently, the patient had to have cardiac c learance for that reason patient was proceed to have cardiac cath with elevation in BUN and creatinin e, felt not safe to proceed with cardiac cath for that reason patient was admitted to initiate dialys is, then do the cardiac cath. The patient denied any nausea, any vomiting. No shortness of breath. Over the night temporary hemodialysis catheter was placed. Patient received her session of dialysis today, tolerated very well. Past Medical History: 1. Diabetes, complicated with neuropathy and nephropathy. 2. Hypertension. 3. Hyperlipidemia. 4. CVA. 5. Chronic kidney disease stage 5 progression to end-stage renal disease. 6. Anemia of chronic kidney disease. 7. CAD complicated with congestive heart failure. Family History: Positive for diabetes and hypertension with CAD. Allergies: NO KNOWN DRUGS ALLERGY. Social History: Denied smoking, denied drinking, denied drugs abuse. Past Surgical History: Includes gastric bypass. Review of Systems: Head and Neck: No red eye. No ear pain. GI: No nausea, no vomiting. : No polyuria, no dysuria, no hematuria. RCIS: No vaginal discharge. Respiratory: No shortness of breath. Cardiovascular: No chest pain. Endocrine: No polydipsia. Skin: No rash. Physical Examination: Vital Signs: When I saw the patient, her blood pressure 173/77, pulse of 75. Afebrile. Chest: Clear to auscultation. Heart: S1, S2, regular. Abdomen: Soft, nontender. Extremity: No edema. Neurologic: Alert. No focality. Laboratory Data: Lab data for the patient; WBC 7.8, hemoglobin of 9. Sodium 144, potassium 4.7, bic arb 22, BUN 95, creatinine 6.8. Calcium 7.4, albumin 2.3, corrected calcium is 8.6. Assessment And Plan: 1. Chronic kidney disease advanced stage 5 progression to end-stage renal disease. We will continue dialysis. Patient received first session of dialysis, tolerated very well. I am going to go ahead a nd arrange for dialysis tomorrow after the cardiac cath and we will follow up. 2. Hypertension, controlled, not optimal. I am going to go ahead and increase her hydralazine to 100 mg. Increase losartan to 100 mg. we will consider later on to decrease the hydralazine. 3. 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 Increase losartan. We will follow up. 4. Coronary artery disease. Follow up with Cardiology. Plan for cardiac cath tomorrow. We will radha lyze the patient after cardiac cath. 5. Secondary hyperparathyroid. Continue calcitriol. We will follow up with the lab. 6. Anemia of chronic kidney disease. We will send for iron study and we will follow up. Thank you Dr. Vasquez for allowing us to participate in the care of your patient. Time spent examining the patient [id number], reviewing data, lab and radiology, placing order, discussing the case with the patient, discussing the case with the senior stereo compiler team lead including hospitalist and nursing staff more t horne 75 minutes. DANDY Voice ID: [id number] Report ID: [id number]
[2024-12-26 06:00] LABS: Percent Reticulocyte Count 0.86 % (0.4-2.05); RBC Red Blood Cell Count 3.32 M/uL (3.86-4.86)
[2024-12-26 06:44] LABS: Albumin 2.3 g/dL (3.4-5.0); Anion Gap 8.8 mEq/L (5.0-15.0); BUN Blood Urea Nitrogen 64.0 mg/dL (7-18); Ferritin 398.6 ng/mL (8-252); Glucose Level 126.0 mg/dL (74-106); Iron 61.0 ug/dL (50-170); Potassium 3.8 mEq/L (3.5-5.1); Transferrin 156.0 mg/dL (200-360)
[2024-12-26 06:45] LABS: Thyroid Stimulating Hormone 4.99 uIU/mL (0.358-3.740)
[2024-12-26] MEDS ORDERED: LIDOCAINE 2% MPF 5 ML VIAL ONE (07:08)
[2024-12-26] MEDS ORDERED: FENTANYL CITR 100 MCG/2 ML ONE (07:09)
[2024-12-26] MEDS ORDERED: GLYCOPYRROLATE 0.2 MG/ML SYR ONE (07:12)
[2024-12-26] MEDS: Phenylephrine HCl 10 MG/ML 1 ML VIAL ONE (07:14)
[2024-12-26] MEDS: FAMOTIDINE 20 MG/2 ML VIAL IV ONE (07:14)
[2024-12-26] MEDS: NA CHLORIDE 0.9% 100 ML ONE ×2 (07:14→07:19)
[2024-12-26] MEDS: NS 0.9% VIAL 10 ML ONE (07:18)
[2024-12-26] MEDS: HEPARIN 5000 UNIT/ML 1 ML VIAL ONE (07:18)
[2024-12-26] MEDS: NA CHLORIDE 0.9% 500 ML ONE ×2 (07:39→13:27)
[2024-12-26] MEDS: TICAGRELOR 90 MG TABLET PO SCH (08:25)
[2024-12-26] MEDS: LOSARTAN POTASSIUM 50 MG TABLET PO SCH (08:26)
[2024-12-26] MEDS: CEFAZOLIN SODIUM 2 GM/VIAL ONE (08:35)
[2024-12-26] MEDS: BUPIVACAINE 0.5% PF 10 ML VIAL ONE (08:49)
[2024-12-26] MEDS ORDERED: ONDANSETRON 4 MG/2 ML VIAL ONE (09:07)
--- NOTE | 2024-12-26 09:14 | P.OP ---
Date of Service: 12/26/24 Preop diagnosis: Acute renal failure and coronary artery disease Postop diagnosis: Same Procedure performed: Placement of a tunneled dialysis catheter in the right IJ with utilization of fluoroscopy Surgeon: Franky Hall MD Photo Printer: None Estimated blood loss: Minimal Specimen: None Findings: Normal anatomy Anesthesia: General Complications: None Drains: None Fluids and blood products: Nonapplicable Disposition: Recovery room Operative note: Patient brought to the OR placed in the supine position. General anesthesia began. Patient prepped and draped in usual sterile fashion. Lidocaine 1% locally. Patient already had a temporary dialysis catheter in place in the right internal jugular vein. A guidewire was passed. A counterincision was made on the right anterior chest. Tunneling device was used to tunnel the catheter between the 2 wounds. Seldinger technique was used. Tip of the catheter was placed in the SVC under fluoroscopy. Catheter was flushed with heparin and packed with heparin. Catheter had good blood flow. 0 chromic was used to reapproximate subcutaneous tissue and close skin. 3-0 nylon was used to secure the catheter to the chest wall. Sterile dressing applied. Patient awakened and taken to recovery room in good general condition. Chest x- ray has been ordered. CC: Dr. Vasquez's office
--- NOTE | 2024-12-26 09:52 | RAD REPORT ---
EXAM: Chest Single View HISTORY: 64 years Female POST HD CATH PLACEMENT, R/O TB COMPARISON: 12/24/2024 FINDINGS: LUNGS/PLEURA: Pulmonary vascular congestion. No evidence of tuberculosis. No pneumothorax. CARDIAC/MEDIASTINUM: Stable enlargement. UPPER ABDOMEN: No significant abnormality. BONES: No acute abnormality. LINES/TUBES/OTHER: Tunneled right IJ dialysis catheter with tip overlying the superior cavoatrial chao ction. IMPRESSION: No pneumothorax following right IJ dialysis catheter placement. No evidence of TB infection. Vascular congestion.
--- NOTE | 2024-12-26 10:21 | P.CNS ---
Date of Consult: 12/26/24 Chief Complaint: CKD 5, DIALYSIS AND CATH IN AM. History of Present Illness: Patient with PMH of CKD advanced, CAD presented and admitted from office due to need for intiation of dialysis before doing PCI of RPDA, patient report occasional angina but no other cardiac symptoms. Allergies No Known Allergies Allergy (Verified 12/23/24 08:41) Home medications list reviewed: Yes Home Medications: Atorvastatin Calcium [Lipitor] 80 mg PO BEDTIME 10/08/20 Cholecalciferol (Vitamin D3) [Vitamin D 5,000 IU Cap*] 5,000 unit PO DAILY cap 10/14/20 Magnesium Oxide [Magnesium] 250 mg PO DAILY 03/07/23 Ubiquinol [Qunol Javed Coq10] 100 mg PO DAILY 03/07/23 carvediloL [Coreg] 25 mg PO BID 03/07/23 hydroCHLOROthiazide [Hydrochlorothiazide] 25 mg PO DAILY 03/07/23 Hydralazine HCl 25 mg PO BID 08/11/24 Losartan Potassium [Cozaar] 25 mg PO DAILY 08/11/24 Semaglutide [Rybelsus] 25 mg PO DAILY 08/11/24 Calcitriol [Rocaltrol] 0.5 mcg PO DAILY 12/24/24 - Past Medical/Surgical History Diabetic: Yes -: DM -: BERNARDINO -: HLD -: HTN -: CAD -: nephrotic kidney dz -: anemia -: sleep apnea -: gastric bypass -: aurea sesay - Family History Father Medical History: Heart disease - Social History Alcohol use: No CD- Drugs: No Caffeine use: No Place of Residence: Home Review of Systems 10-point ROS is otherwise unremarkable Physical Examination Temp Pulse Resp BP Pulse Ox 97.5 F 80 16 178/69 H 95 12/26/24 09:53 12/26/24 09:53 12/26/24 09:53 12/26/24 09:53 12/26/24 04:00 General: Alert, In no apparent distress HEENT: Atraumatic, PERRLA, Mucous membr. moist/pink, EOMI, Sclerae nonicteric Neck: Supple, 2+ carotid pulse no bruit, No LAD, Without JVD or thyroid abnormality Respiratory: Clear to auscultation bilaterally, Normal air movement Cardiovascular: Regular rate/rhythm, Normal S1 S2 Gastrointestinal: Normal bowel sounds, No tenderness Musculoskeletal: No tenderness Integumentary: No rashes Neurological: Normal gait, Normal speech, Normal tone, Normal affect Lymphatics: No axilla or inguinal lymphadenopathy Laboratory Data (last 24 hrs) 12/26/24 05:36 Sodium 143 Potassium 3.8 BUN 64 H Creatinine 5.14 H Glucose 126 H Phosphorus 5.4 H - Problems (1) CKD stage 5 secondary to hypertension Current Visit: Yes Status: Acute Plan: Patient already started on dilaysis. (2) Coronary artery disease Current Visit: Yes Status: Chronic Plan: patient is scheduled for PCI of RPDA ASA 81 mg daily Brilinta 90 mg po BID (3) HTN (hypertension) Current Visit: No Status: Chronic Plan: BP is still high continue coreg 25 bid continue losartan 100 mg daily consider adding Isordil 10 mg TID continue to monitor Qualifiers: Hypertension type: essential hypertension Qualified Code(s): I10 - Essential (primary) hypertension
--- NOTE | 2024-12-26 12:30 | P.PN ---
Subjective Date of Service: 12/26/24 Chief Complaint: CKD 5, DIALYSIS AND CATH IN AM. went to see her at [facility] she was taken for cath already. she will need op dialysis. This will take days to arrange. I will discuss with Dr. Lamb. Physical Examination - Vital Signs Temperature: 97.5 F Blood Pressure: 170/86 Pulse: 80 Respirations: 15 Pulse Ox (%): 95 - Studies Laboratory Data (last 24 hrs) 12/26/24 05:36 Sodium 143 Potassium 3.8 BUN 64 H Creatinine 5.14 H Glucose 126 H Phosphorus 5.4 H Assessment And Plan - Current Problems (Diagnosis) (1) CKD stage 5 secondary to hypertension Current Visit: Yes Status: Acute Plan: PLAN PER HPI HD TO BE DONE BEFORE CATH AND AFTER. SHE IS NOT SYMPTOMATIC FROM CKD (2) Coronary artery disease Current Visit: Yes Status: Chronic Plan: POS ST TEST CATH WILL DEFINE MORE. (3) Nephrotic syndrome Current Visit: Yes Status: Chronic Plan: REASON FOR CKD ALSO.
[2024-12-26] MEDS ORDERED: HEPA 1000U/500MLS 2,000 UNIT/1,000 ML BAG IV ONE (14:16)
[2024-12-26] MEDS ORDERED: LIDOCAINE 1% 20 ML MDV ONE (14:16)
[2024-12-26] MEDS: MIDAZOLAM HCL 2 MG/2 ML INJ ONE (14:26)
[2024-12-26] MEDS: FENTANYL CITR 100 MCG/2 ML ONE (14:26)
[2024-12-26] MEDS ORDERED: HEPARIN 5000 UNIT/ML 1 ML VIAL ONE (14:42)
[2024-12-26] MEDS ORDERED: HEPARIN 10,000 UNIT/10 ML VIAL IV ONE (14:48)
--- NOTE | 2024-12-26 16:38 | OP ---
Date of Procedure: 12/26/2024 Surgeon: Antonio Hahn Procedures Performed: 1. Selective coronary angiogram with left heart catheterization. 2. PCI of the RPDA with Synergy 2.5 x 24 mm drug-eluting stent. Indication For Procedure: Unstable angina. Abnormal cardiac cath in the past. Complications: None. Estimated Blood Loss: Less than 50 cc. Access: Right radial, closed by TR band. Sedation Time: 30 minutes with 1 of Versed and 25 of fentanyl. Description Of Procedure: After risks, and benefits, and alternatives were explained to the patient, patient agreed to proceed with procedure and signed informed consent. The patient was brought back to the laborer concrete paving. A time-out was performed. Sedation was administered. Next, right radial access wa s obtained using ultrasound-guided micropuncture technique. Sheridan 4.0 catheter was advanced to the L V cavity. LVEDP was obtained. Pullback did not show any gradient. Same catheter was used for selec tive angiogram of the left and right coronary systems. That catheter was later exchanged with JR4 gu андрей. Heparin was administered. ACT was therapeutic. Runthrough wire was passed across the lesion. We pre-dilated the lesion with NC 2.5 mm balloon. Next, Synergy 2.5 x 24 mm drug-eluting stent was placed across the lesion that was postdilated with an NC 2.75 mm balloon. Final angiogram shows TIMMY -3 flow. Catheter was removed over a J-wire. Sheath was removed. TR band was applied. Hemostasis was achieved and the patient was moved back to Recovery in stable condition. Findings: 1. Left main normal. 2. LAD; proximal mild luminal irregularities with mid 20% to 30% disease, then mild luminal irregular ities. 3. Left circ; proximal to mid mild luminal irregularities with distal 90% disease that goes into the OM3 that got 99% to 100% occlusion, a small artery. 4. OM1/OM2; mild luminal irregularities. 5. RCA; large, dominant with proximal mild luminal irregularities and mid calcified 30% disease. Dis junior, mild luminal irregularities. 6. RPDA; proximal mild luminal irregularities with mid 70% to 80% disease, status post PCI as above, then distal mild luminal irregularities. 7. LVEDP 7 mmHg. Assessment And Plan: 1. Significant mid RPDA disease, status post PCI with Synergy 2.5 x 24 mm drug-eluting stent. 2. Mild mid LAD and mid RCA disease. 3. Significant distal left circ into OM3 disease, small artery. Plan: 1. Aspirin 81 mg daily. 2. Brilinta 90 mg p.o. b.i.d. 3. Continue aggressive medical treatment for CAD. MELINA/KESHAWN Voice ID: [id number] Report ID: [id number]
[2024-12-27 06:27] LABS: Albumin 2.0 g/dL (3.4-5.0); Anion Gap 10.8 mEq/L (5.0-15.0); BUN Blood Urea Nitrogen 60.0 mg/dL (7-18); Glucose Level 95.0 mg/dL (74-106); Potassium 3.8 mEq/L (3.5-5.1)
--- NOTE | 2024-12-27 09:48 | PN ---
Date of Progress Note: 12/27/2024 Subjective: The patient is awake, alert. The patient had some oozing from the surgical site yesterd ay with dressing change; however, none since that time. She underwent a cardiac cath and a stent nubia emerald. She is on Brilinta. Objective: Vital Signs: Stable. She is afebrile. Extremities: Her dressing is clean, dry, and intact. Assessment: Status post tunneled dialysis catheter placement. Recommendations: No evidence of any bleeding at this time. Should there be any concerns, please con tj shearer. Management per the hospitalist and Nephrology team. /MODL Voice ID: [id number] Report ID: [id number]
--- NOTE | 2024-12-27 13:01 | P.PN ---
Subjective Date of Service: 12/27/24 Chief Complaint: CKD 5, DIALYSIS AND CATH IN AM. Subjective: Improving went to see her at [facility] she was taken for cath already. she will need op dialysis. This will take days to arrange. I will discuss with Dr. Lamb. she is stable. she had cath and stent by dr olea we are now waiting for approval of bed for hemodialysis. Review of Systems 10-point ROS is otherwise unremarkable Physical Examination - Vital Signs Temperature: 97.9 F Blood Pressure: 120/61 Pulse: 77 Respirations: 18 Pulse Ox (%): 99 - Physical Exam General: Alert, In no apparent distress HEENT: Atraumatic, PERRLA, EOMI Neck: Supple, JVD not distended Respiratory: Clear to auscultation bilaterally, Normal air movement Cardiovascular: Regular rate/rhythm, Normal S1 S2 Gastrointestinal: Normal bowel sounds, No tenderness Musculoskeletal: No tenderness Integumentary: No rashes Neurological: Normal speech, Normal tone, Normal affect Lymphatics: No axilla or inguinal lymphadenopathy - Studies Laboratory Data (last 24 hrs) 12/27/24 05:33 Sodium 142 Potassium 3.8 BUN 60 H Creatinine 5.54 H Glucose 95 Phosphorus 6.4 H Medications List Reviewed: Yes Assessment And Plan - Current Problems (Diagnosis) (1) CKD stage 5 secondary to hypertension Current Visit: Yes Status: Acute Plan: PLAN PER HPI HD TO BE DONE BEFORE CATH AND AFTER. SHE IS NOT SYMPTOMATIC FROM CKD (2) Coronary artery disease Current Visit: Yes Status: Chronic Plan: POS ST TEST CATH WILL DEFINE MORE. (3) Nephrotic syndrome Current Visit: Yes Status: Chronic Plan: REASON FOR CKD ALSO. (4) Coronary artery disease status post coronary stent insertion Current Visit: Yes Status: Acute Plan: sp stent in one blood vessel that was not LAD. cont asa, brillinta.
[2024-12-27] MEDS: EPOETIN ALFA 4000 UNIT/1 ML VIAL IV SCH (16:56)
--- NOTE | 2024-12-27 20:34 | PN ---
Date of Progress Note: 12/27/2024 Subjective: The patient is status post cardiac catheterization and stent placement. She had dialysi s today, pending outpatient dialysis. Physical Examination: Vital Signs: Temperature 97.9, pulse rate 77, blood pressure 120/61. General: Awake, alert, oriented x3, not in distress. Neck: Supple. No elevated JVD. Heart: Regular rate and rhythm. Normal S1, S2. Chest: Clear to auscultation bilaterally. No rales or wheezes. Abdomen: Soft and nontender. Extremities: No edema. Laboratory Data: RBC 3.3. Sodium 142, potassium 3.8, BUN 60, creatinine 5.5. Assessment And Plan: 1. End-stage renal disease. The patient started on dialysis. Continue dialysis. Next dialysis or Sunday pending outpatient placement. Renal dose medication. 2. Coronary artery disease, status post catheterization and stent placement. 3. Anemia of chronic disease. Monitor H and H. Transfuse if hemoglobin less than 7. Continue Epoge n. 4. Hypertension. Blood pressure controlled. Currently on hydralazine, Coreg, and losartan. Thank you for allowing me to participate in the patient 'scare. Total time spent 55 minutes includin g documentation, reviewing labs, and placing orders. LUCIA/KESHAWN Voice ID: [id number] Report ID: [id number]
[2024-12-28 06:22] LABS: Albumin 1.9 g/dL (3.4-5.0); Anion Gap 10.5 mEq/L (5.0-15.0); BUN Blood Urea Nitrogen 49.0 mg/dL (7-18); Glucose Level 109.0 mg/dL (74-106); Potassium 3.5 mEq/L (3.5-5.1)
[2024-12-28] MEDS: HYDRALAZINE HCL 25 MG TABLET PO SCH (16:36)
--- NOTE | 2024-12-28 18:58 | P.PN ---
Subjective Date of Service: 12/28/24 Chief Complaint: CKD 5, DIALYSIS AND CATH IN AM. Subjective: Improving went to see her at [facility] she was taken for cath already. she will need op dialysis. This will take days to arrange. I will discuss with Dr. Lamb. she is stable. she had cath and stent by dr olea we are now waiting for approval of bed for hemodialysis. no new changes bp high without losartan she is asked not to take it 2 days before and 2 days after cath. Review of Systems 10-point ROS is otherwise unremarkable General: As per HPI Physical Examination - Vital Signs Temperature: 98.2 F Blood Pressure: 179/81 Pulse: 72 Respirations: 16 Pulse Ox (%): 99 - Physical Exam General: Alert, In no apparent distress HEENT: Atraumatic, PERRLA, EOMI Neck: Supple, JVD not distended Respiratory: Clear to auscultation bilaterally, Normal air movement Cardiovascular: Regular rate/rhythm, Normal S1 S2 Gastrointestinal: Normal bowel sounds, No tenderness Musculoskeletal: No tenderness Integumentary: No rashes Neurological: Normal speech, Normal tone, Normal affect Lymphatics: No axilla or inguinal lymphadenopathy - Studies Laboratory Data (last 24 hrs) 12/28/24 05:22 Sodium 140 Potassium 3.5 BUN 49 H Creatinine 4.60 H Glucose 109 H Phosphorus 4.5 Medications List Reviewed: Yes Assessment And Plan - Current Problems (Diagnosis) (1) CKD stage 5 secondary to hypertension Current Visit: Yes Status: Acute Plan: PLAN PER HPI HD TO BE DONE BEFORE CATH AND AFTER. SHE IS NOT SYMPTOMATIC FROM CKD (2) Coronary artery disease Current Visit: Yes Status: Chronic Plan: POS ST TEST CATH WILL DEFINE MORE. (3) Nephrotic syndrome Current Visit: Yes Status: Chronic Plan: REASON FOR CKD ALSO. (4) Coronary artery disease status post coronary stent insertion Current Visit: Yes Status: Acute Plan: sp stent in one blood vessel that was not LAD. cont asa, brillinta. (5) CKD, patient preferred treatment modality in-center hemodialysis Current Visit: Yes Status: Chronic Plan: WE ARE WAITING FOR A BED FOR HD MEDICARE AND SOCIAL WORKERS ARE WORKING TOGETHER. STABLE FOR NOW. BP MEDS- RAISED HYDRALAZINE.
--- NOTE | 2024-12-28 20:41 | RAD REPORT ---
EXAM: Fluoroscopy use, Fluoroscopy <1 Hour HISTORY: HD CATH PLACEMENT COMPARISON: None FINDINGS: A total of 3 images were sent to PACS, during a fluoroscopically guided dialysis catheter p lacement. No radiologist was involved in protocoling or performance of the study, and no radiologist was present for the duration of the procedure. No interpretation of the saved images will be provided. Total fluoroscopy time: 0 minutes. Cumulative dose: 1.81 mGy IMPRESSION: Documentation of fluoroscopy use as above.
[2024-12-29 06:33] LABS: Albumin 2.0 g/dL (3.4-5.0); Anion Gap 11.5 mEq/L (5.0-15.0); BUN Blood Urea Nitrogen 60.0 mg/dL (7-18); Glucose Level 93.0 mg/dL (74-106); Potassium 3.5 mEq/L (3.5-5.1)
--- NOTE | 2024-12-29 12:13 | P.DS ---
Admission Date: 12/26/24 Discharge Date: 12/29/24 Disposition: ROUTINE DISCHARGE Reason for Admission: CKD 5, DIALYSIS AND CATH IN AM. - Problems (1) CKD stage 5 secondary to hypertension Current Visit: Yes Status: Acute (2) Coronary artery disease Current Visit: Yes Status: Chronic (3) Nephrotic syndrome Current Visit: Yes Status: Chronic (4) Coronary artery disease status post coronary stent insertion Current Visit: Yes Status: Acute (5) CKD, patient preferred treatment modality in-center hemodialysis Current Visit: Yes Status: Chronic Brief History of Present Illness: EMMY IS A PATIENT WITH CKD 5 WHO IS WAITING FOR [facility] FOR HD. SHE NEEDS CATH SHE HAS POSITIVE STRESS TEST. HER CREATIINE IS MORE THAN 7 AND SHE NEEDS HD DONE BEFORE CATH AND AFTER CATH. SHE HAS NO DYSPNEA OR CHEST PAIN. DR KNUTSON ALREADY DID THE [facility] CATHETER. HD HAS NO OPENINGS TONIGHT. THEY WILL DO HER HD IN AM AND CATH AFTER THAT. SHE WILL GET HD IN PM AND SHE MAY GO HOME AFTER THAT IF DONE ON TIME. Hospital Course: BHUPENDRA HAS DM,CKD, NEPHROTIC SYNDROME, NEEDED A CATH FOR CAD. DR. AVILA WANTED HD BEFORE AND AFTER. SHE HAD CATH DONE, SHE HAS ONE STENT NOW. SHE HAD [facility] CATH FOR HD, SHE WILL NOW DO HD AT THE CENTER IT HAS BEEN APPROVED. SHE IS STABLE FOR DC/ Vital Signs/Physical Exam: Temp Pulse Resp BP Pulse Ox 97.6 F 73 16 150/69 H 96 12/29/24 08:00 12/29/24 09:33 12/29/24 08:00 12/29/24 09:33 12/29/24 08:00 Laboratory Data at Discharge: WBC 7.80 thou/uL (4.3-10.9) 12/24/24 16:40 Hgb 9.0 g/dL (12.0-15.0) L 12/24/24 16:40 Hct 27.7 % (36.0-45.0) L 12/24/24 16:40 Plt Count 201 thou/uL (152-406) 12/24/24 16:40 PT 11.9 SECONDS (10-13.0) 12/24/24 16:40 INR 1.05 12/24/24 16:40 APTT 52.2 SECONDS (27.2-37.4) H 12/24/24 16:40 Sodium 144 mEq/L (136-145) 12/29/24 05:33 Potassium 3.5 mEq/L (3.5-5.1) 12/29/24 05:33 BUN 60 mg/dL (7-18) H 12/29/24 05:33 Creatinine 5.66 mg/dL (0.55-1.02) H 12/29/24 05:33 Glucose 93 mg/dL (74-106) 12/29/24 05:33 Phosphorus 6.1 mg/dL (2.5-4.9) H 12/29/24 05:33 Magnesium 2.3 mg/dL (1.6-2.4) 12/24/24 16:40 Total Bilirubin < 0.2 mg/dL (0.2-1.0) L 12/24/24 16:40 AST 20 U/L (15-37) 12/24/24 16:40 ALT 24 U/L (13-56) 12/24/24 16:40 Alkaline Phosphatase 75 U/L (45-117) 12/24/24 16:40 Home Medications: Atorvastatin Calcium [Lipitor] 80 mg PO BEDTIME 10/08/20 Cholecalciferol (Vitamin D3) [Vitamin D 5,000 IU Cap*] 5,000 unit PO DAILY cap 10/14/20 Magnesium Oxide [Magnesium] 250 mg PO DAILY 03/07/23 Ubiquinol [Qunol Javed Coq10] 100 mg PO DAILY 03/07/23 carvediloL [Coreg] 25 mg PO BID 03/07/23 hydroCHLOROthiazide [Hydrochlorothiazide] 25 mg PO DAILY 03/07/23 Hydralazine HCl 25 mg PO BID 08/11/24 Losartan Potassium [Cozaar*] 25 mg PO DAILY 08/11/24 Semaglutide [Rybelsus] 25 mg PO DAILY 08/11/24 Calcitriol [Rocaltrol] 0.5 mcg PO DAILY 12/24/24 Ticagrelor [Brilinta*] 90 mg PO BID #60 12/29/24 New Medications: Ticagrelor [Brilinta*] 90 mg PO BID #60 Followup: Kg Vasquez MD [Primary Care Provider] -
[2024-12-29 16:15] VITALS: BP 150/72; TEMP 97.7
[2024-12-29 17:26] VITALS: O2SAT 98
--- NOTE | 2024-12-30 02:34 | PN ---
Date of Progress Note: 12/29/2024 Chief Complaint: End-stage renal disease, on hemodialysis. Subjective: The patient underwent cardiac catheterization and had dialysis next day to control elect rolytes, to prevent hyperkalemia. Review of Systems: Denies chest pain, palpitations. Physical Examination: Lungs: Clear to auscultation bilaterally. Heart: S1, S2. Abdomen: Soft. Extremities: No edema. Impression And Plan: 1. End-stage renal disease. Continue dialysis on Sunday, Sunday, Sunday. 2. Coronary artery disease, status post cardiac catheterization and stent placement. 3. Anemia of chronic kidney disease. Monitor hemoglobin level. 4. Hypertension. Currently, blood pressure controlled. EB/MODL Voice ID: [id number] Report ID: [id number]
== END 2024-12-29 17:28 | disposition home or self-care (01) | DRG 321 ==
LOC: CCL 11:00 → INTOOBSV 13:06 → ERHOLD 13:06 → 4TH 14:20 → OBSVTOIN 12-26 12:07
PROVIDERS: ADMIT Internal Medicine; ATTEND Internal Medicine
PROC: 05HY33Z Insertion of Infusion Device into Upper Vein, Percutaneous Approach (ICD-10-PCS; 2024-12-24)
PROC: 5A1D70Z Performance of Urinary Filtration, Intermittent, Less than 6 Hours Per Day (ICD-10-PCS; 2024-12-25)
PROC: 0JH63XZ Insertion of Tunneled Vascular Access Device into Chest Subcutaneous Tissue and Fascia, Percutaneous Approach (ICD-10-PCS; 2024-12-26)
PROC: 02HV33Z Insertion of Infusion Device into Superior Vena Cava, Percutaneous Approach (ICD-10-PCS; 2024-12-26)
PROC: 4A023N7 Measurement of Cardiac Sampling and Pressure, Left Heart, Percutaneous Approach (ICD-10-PCS; 2024-12-26)
PROC: B2111ZZ Fluoroscopy of Multiple Coronary Arteries using Low Osmolar Contrast (ICD-10-PCS; 2024-12-26)
PROC: 027034Z Dilation of Coronary Artery, One Artery with Drug-eluting Intraluminal Device, Percutaneous Approach (ICD-10-PCS; principal; 2024-12-26 08:30)
DX: I25.119 Atherosclerotic heart disease of native coronary artery with unspecified angina pectoris (principal); N18.6 End stage renal disease; N17.9 Acute kidney failure, unspecified; I13.2 Hypertensive heart and chronic kidney disease with heart failure and with stage 5 chronic kidney disease, or end stage renal disease; I50.32 Chronic diastolic (congestive) heart failure; N25.81 Secondary hyperparathyroidism of renal origin; E11.22 Type 2 diabetes mellitus with diabetic chronic kidney disease; E11.40 Type 2 diabetes mellitus with diabetic neuropathy, unspecified; D63.1 Anemia in chronic kidney disease; E78.2 Mixed hyperlipidemia; G47.33 Obstructive sleep apnea (adult) (pediatric); Z98.84 Bariatric surgery status; Z79.02 Long term (current) use of antithrombotics/antiplatelets; Z79.899 Other long term (current) drug therapy
CPT/HCPCS: 36415; 71045; 71046; 76000; 76937; 80048; 80069; 80076; 81001; 82550; 82607; 82728; 82947; 83540; 83735; 83970; 84439; 84443; 84466; 85025; 85044; 85347; 85610; 85730; 86704; 86705; 86706; 87340; 88300; 90935; 93005; 93458; 99152; A4216; C1725; C1752; C1893; C9600; G0378; J0461; J1644; J2003; J2250; J2371; J2405; J2704; J3010; J7040; Q4081; Q5105; Q9967